=== PATIENT | male | born 1960 | race Caucasian/White ===

== ENCOUNTER 2023-01-01 10:04 | Outpatient (CLI) | payer MEDICARE, SELFPAY ==
--- NOTE | 2023-01-01 11:29 | W.ANESCHARGE ---
Anesthesia Charges Start Date/Time Anesthesia Start Date: 01/01/23 Anesthesia Start Time: 11:11 Stop Date/Time Anesthesia Stop Date: 01/01/23 Anesthesia Stop Time: 11:26
== END 2023-01-01 10:05 | disposition home or self-care (01) ==
LOC: OP CLINIC 10:06
PROVIDERS: PCP Family Medicine; Visit Provider Internal Medicine Gastroenterology
DX: R13.10 Dysphagia, unspecified (principal); K31.89 Other diseases of stomach and duodenum
CPT/HCPCS: 00731; 43239; 88305; J2704

== ENCOUNTER 2023-05-25 16:57 | Emergency (ER) | payer MEDICARE, SELFPAY ==
[2023-05-25] VITALS (11 sets, daily range): BP systolic 99–125; BP diastolic 60–76; PULSE 72–148; RESP 20; TEMP 36.7; O2SAT 94–98; BMI 23.1
--- NOTE | 2023-05-25 17:20 | ED.GENADULT ---
HPI - General Adult General Chief complaint: Weakness Stated complaint: Afib Time Seen by Provider: 05/25/23 17:05 History of Present Illness HPI narrative: This 62-year-old male comes in reporting palpitations and is noted to have an increased heart rate at rest on arrival. His heart rate is around 145 beats per minute. He states that at times he has noticed his heart pounding over the past couple months. He is not report any chest pain, nausea, vomiting, lightheadedness, shortness of breath, or diaphoresis. He has not had increased resting heart rate like this in the past. Related Data Home Medications Medication Instructions Recorded Confirmed atorvastatin 40 mg tablet 40 mg PO QPM 05/25/23 05/25/23 clopidogrel 75 mg tablet 75 mg PO QAM 05/25/23 05/25/23 desipramine 25 mg tablet mg PO 05/25/23 diazepam 5 mg tablet PO 05/25/23 methocarbamol 500 mg tablet PO 05/25/23 pregabalin 150 mg capsule 150 mg PO BID 05/25/23 05/25/23 tizanidine 4 mg tablet 4 mg PO Q8H PRN 05/25/23 05/25/23 zolpidem 10 mg tablet 10 mg PO QPM PRN 05/25/23 05/25/23 Allergies Allergy/AdvReac Type Severity Reaction Status Date / Time oxcarbazepine Allergy Rash Verified 01/01/23 11:41 [From Trileptal] topiramate [From Topamax] Allergy Rash Verified 01/01/23 11:41 amoxicillin [From Augmentin] AdvReac Nausea Verified 01/01/23 11:41 clavulanic acid AdvReac Nausea Verified 01/01/23 11:41 [From Augmentin] sulfamethoxazole AdvReac Diarrhea Verified 01/01/23 11:41 [From Bactrim] trimethoprim [From Bactrim] AdvReac Diarrhea Verified 01/01/23 11:41 Review of Systems Status of ROS: Reports: 10 or more systems reviewed and unremarkable except as noted in History and below Narrative: Constitutional: No fevers, no weight gain or loss. Eyes: No discharge. No vision changes. HENT: No congestion, no sore throat, no ear pain. Cardiovascular: No chest pain Respiratory: No shortness of breath, no wheezes, no cough. Gastrointestinal: No abdominal pain, no vomiting, no diarrhea. Genitourinary: No dysuria, no hematuria. Musculoskeletal: Normal range of motion. Skin: No rashes, no pruritis. Neurological: No dizziness, weakness, sensory change, speech change. Endo/Heme/Allergies: No bruising or bleeding. No polydipsia. Pysch: no suicidality, no anxiety, no insomnia. All other systems reviewed and are negative. [facility] Smoking Status: Current every day smoker What tobacco products do you use: cigarettes Do you use any of these nicotine containing products: None How often do you have a drink containing alcohol: never How often do you have six or more drinks on one occasion: Never AUDIT-C Alcohol total score: 0 Non-prescribed substance use: denies use Exam Narrative: Exam Narrative: Constitutional: Well-developed, well-nourished, no acute distress. HEENT: Normocephalic, atraumatic. Neck: Normal range of motion. Nontender. Supple. Heart: Regular. No murmurs. Tachycardia Intact distal pulses. Lungs: Clear to auscultation. No chest discomfort. No wheezes, rhonchi, or rales. Abdomen: Normal bowel sounds. Nontender. No rebound tenderness. Genitalia: Deferred. Back: No midline tenderness. Normal range of motion. Extremities: Normal range of motion. No injury. Skin: Intact. No rash. Warm. No erythema or pallor. Neurologic: No altered sensation. No weakness. Alert and oriented. Psychiatric: No suicidality. No anxiety or depression. No insomnia. Nursing notes and vitals signs are reviewed. Const: Vital Signs, click to edit/add: Vital Signs - 24 hr 05/25/23 17:06 05/25/23 17:25 05/25/23 17:45 Temperature 98.0 F Pulse Rate Pulse Rate [Left P ulse Oximeter] 148 H Respiratory Rate 20 Blood Pressure Blood Pressure [Ri ght Upper Arm] 99/60 108/76 100/64 Pulse Oximetry 98 Oxygen Delivery Me thod Room Air 05/25/23 17:54 05/25/23 18:00 05/25/23 18:01 Temperature Pulse Rate 80 76 76 Pulse Rate [Left P ulse Oximeter] Respiratory Rate Blood Pressure 115/69 Blood Pressure [Ri ght Upper Arm] Pulse Oximetry 94 94 94 Oxygen Delivery Me thod 05/25/23 18:02 05/25/23 18:15 05/25/23 18:16 Temperature Pulse Rate 75 73 73 Pulse Rate [Left P ulse Oximeter] Respiratory Rate Blood Pressure 116/71 Blood Pressure [Ri ght Upper Arm] Pulse Oximetry 94 96 95 Oxygen Delivery Me thod 05/25/23 18:30 05/25/23 18:32 Temperature Pulse Rate 72 76 Pulse Rate [Left P ulse Oximeter] Respiratory Rate Blood Pressure 125/68 Blood Pressure [Ri ght Upper Arm] Pulse Oximetry 96 97 Oxygen Delivery Me thod Course Vital Signs Vital signs: Initial Vital Signs Temperature 98.0 F 05/25/23 17:06 Temperature Source Temporal Artery Scan 05/25/23 17:06 Pulse Rate 148 H 05/25/23 17:06 Respiratory Rate 20 05/25/23 17:06 Blood Pressure 99/60 05/25/23 17:06 Blood Pressure Mean 73 05/25/23 17:06 Blood Pressure Position Sitting 05/25/23 17:06 Pulse Oximetry 98 05/25/23 17:06 Oxygen Delivery Method Room Air 05/25/23 17:06 Vital Signs Temperature 98.0 F 05/25/23 17:06 Pulse Rate 148 H 05/25/23 17:06 Respiratory Rate 20 05/25/23 17:06 Blood Pressure 99/60 05/25/23 17:06 Pulse Oximetry 98 05/25/23 17:06 Oxygen Delivery Method Room Air 05/25/23 17:06 Temperature 98.0 F 05/25/23 17:06 Pulse Rate 76 05/25/23 18:32 Respiratory Rate 20 05/25/23 17:06 Blood Pressure 125/68 05/25/23 18:32 Pulse Oximetry 97 05/25/23 18:32 Oxygen Delivery Method Room Air 05/25/23 17:06 Medical Decision Making MDM Narrative Medical decision making narrative: This patient arrives with heart rate around 145 beats per minute and it appears to be a supraventricular tachycardia. The patient states that he is not having any symptoms of lightheadedness, shortness of breath, or chest pain. An IV was established and an order was placed for L of normal saline along with 6 mg of adenosine. As the nurse was beginning to arrange for administering medicines to him he spontaneously converted back to normal sinus rhythm. Labs are acquired and these all returned with normal results. I did order a thyroid stimulating hormone test whose results are not yet back. This patient states that he feels normal and wants to return home. He is discharged and instructions were given regarding possibility that symptoms like this could return. Lab Data Labs: Lab Results 05/25/23 05/25/23 Range/Units 17:18 17:19 WBC 4.86 (4.50-11.00) K/uL RBC 5.27 (4.30-5.90) m/uL Hgb 14.6 (13.5-17.5) gm/dL Hct 43.8 (37.0-53.0) % MCV 83 (80-100) fL MCH 28 (26-34) pg MCHC 33 (32-36) gm/dL RDW Coeff of Syd 15.1 (11.5-15.5) % Plt Count 204 (140-440) K/uL Neut % (Auto) 51.6 (42.0-72.0) % Lymph % (Auto) 42.4 (20-44) % Reagan % (Auto) 5.6 (0.0-11.0) % Eos % (Auto) 0.2 (0.0-7.0) % Baso % (Auto) 0.2 (0.0-3.0) % Neut # (Auto) 2.51 (1.7-7.0) K/uL Lymph # (Auto) 2.06 (0.90-2.90) K/uL Reagan # (Auto) 0.30 (0.00-0.90) K/UL Eos # (Auto) 0.01 (0.00-0.50) K/uL Baso # (Auto) 0.01 (0.00-0.30) K/uL Abs Immat Gran (auto) 0.00 (0.00-0.30) K/uL Imm/Tot Granulo (auto) 0.0 % Sodium 138 (135-149) mmol/L Potassium 4.6 (3.6-5.1) mmol/L Chloride 103 (96-114) mmol/L Carbon Dioxide 27 (20-32) mmol/L Anion Gap 8 (7-15) mEq/L BUN 18 (7-30) mg/dL Creatinine 1.1 (0.5-1.5) mg/dL Estimated Creat Clear 78.18 Estimated GFR 76 ml/min Glucose 139 H (60-115) mg/dL Calcium 9.9 (8.4-10.6) mg/dL POC Troponin I 0.01 (0.01-0.04) ng/ml ECG Data Attestation: I personally reviewed and interpreted this ECG as follows: Interpretation: Supraventricular tachycardia. Rate is 145 beats per minute. There are no specific ST or T-wave abnormalities. Repeat EKG after spontaneous conversion shows normal sinus rhythm at a rate of 83 beats per minute. There are no ST or T-wave abnormalities. Discharge Plan Discharge Clinical Impression: Paroxysmal supraventricular tachycardia Patient Disposition: Home, Self-Care Condition: Improved Additional Instructions: Continue current plans. Follow up with MD or return if symptoms are recurrent or worsening. Prescriptions: No Action atorvastatin 40 mg tablet 40 mg PO QPM methocarbamol 500 mg tablet PO desipramine 25 mg tablet PO tizanidine 4 mg tablet 4 mg PO Q8H PRN clopidogrel 75 mg tablet 75 mg PO QAM zolpidem 10 mg tablet 10 mg PO QPM PRN diazepam 5 mg tablet PO pregabalin 150 mg capsule 150 mg PO BID Follow Up/Referrals: Tiffany Mae DO [Primary Care Provider] - Stand Alone Forms: [employer] Info Instructions
--- NOTE | 2023-05-25 17:22 | ED.NURSE ---
Healthcare Applications Analyst was about to insert second IV line when pt HR dropped from 147 bpm to ~85 bpm NSR. MD notified and repeat ekg done. 2nd IV line not inserted at this time.
[2023-05-25 17:32] LABS: Basophils Absolute Auto 0.01 K/uL (0.00-0.30); Basophils Percent Auto 0.2 % (0.0-3.0); Eosinophils Absolute Auto 0.01 K/uL (0.00-0.50); Eosinophils Percent Auto 0.2 % (0.0-7.0); Hematocrit 43.8 % (37.0-53.0); Hemoglobin* 14.6 gm/dL (13.5-17.5); Lymphocytes Absolute Auto 2.06 K/uL (0.90-2.90); Lymphocytes Percent Auto 42.4 % (20-44); Mean Corpuscular HGB Conc 33 gm/dL (32-36); Mean Corpuscular Hemoglobin 28 pg (26-34); Mean Corpuscular Volume 83 fL (80-100); Monocytes Percent Auto 5.6 % (0.0-11.0); Neutrophils Absolute Auto 2.51 K/uL (1.7-7.0); Neutrophils Percent Auto 51.6 % (42.0-72.0); Platelet Count* 204 K/uL (140-440); RDW Coefficient of Variation % 15.1 % (11.5-15.5); Red Blood Count 5.27 m/uL (4.30-5.90); White Blood Count* 4.86 K/uL (4.50-11.00)
[2023-05-25 17:34] LABS: Slide Review Reflex No
[2023-05-25 17:37] LABS: Troponin, Point-of-Care* 0.01 ng/ml (0.01-0.04)
[2023-05-25] MEDS: 0.9 % SODIUM CHLORIDE 1000 ml 1,000 ML IV (17:43)
[2023-05-25 17:46] LABS: Chloride* 103 mmol/L (96-114); Potassium* 4.6 mmol/L (3.6-5.1); Sodium* 138 mmol/L (135-149)
[2023-05-25 17:48] LABS: Creatinine* 1.1 mg/dL (0.5-1.5); Est. Creatinine Clearance* 78.18; Estimated Glomerular Filt Rate 76 ml/min
[2023-05-25 17:49] LABS: Anion Gap 8 mEq/L (7-15); Blood Urea Nitrogen* 18 mg/dL (7-30); Carbon Dioxide* 27 mmol/L (20-32); Glucose* 139 mg/dL (60-115)
[2023-05-25 17:50] LABS: Calcium* 9.9 mg/dL (8.4-10.6)
--- OUTSIDE RECORDS SUMMARY | 2023-05-25 17:50 | XMS_ITS | Continuity of Care Document ---
Author Name Unknown Organization [facility] Address [address] [address] [place] [address] Phone Care Team Providers Care Train Director Name Role Phone Unavailable Unavailable Unavailable Allergies, Adverse Reactions, Alerts Substance Reaction Status Criticality topiramate Rash Active No Information oxcarbazepine Rash Active No Information trimethoprim Active No Information sulfamethoxazole Active No Informat ion Medications Medication Instructions Dosage Effective Dates (start - stop) Status Comments Golytely 236 gram-22.74 gram-6.74 gram-5.86 gram oral solution Use as directed per colonoscopy prep instructions - Active Okay to substitute with Gavilyte, Golytely, Colyte, Trilyte, proc 04/14 Miralax 17 gram/dose oral powder Mix 238 grams Miralax with 64 ounces Gatorade (NO RED) and drink per colonoscopy prep instructions - Active Please dispense with Golytely for a double prep. Procedure 04/14/21 Symproic 0.2 mg tablet take 1 tablet by oral route every day 0.2 MG - Active fentanyl 50 mcg/hr transdermal patch apply 1 patch by transdermal route every 48 hours 50 MCG/H - Active desipramine 25 mg tablet take 1 tablet by oral route 2 times every day 25 MG - Active Lyrica 150 mg capsule take 1 capsule by oral route 2 times every day 150 MG - Active pravastatin 20 mg tablet take 1 tablet by oral route every day 20 MG - Active Prilosec OTC 20 mg tablet,delayed release take 1 capsule by oral route every day as needed 1 capsule - Active Ambien 10 mg tablet take 1 tablet by oral route every day at bedtime 10 MG - Active diphenhydramine 25 mg capsule take 2 capsule by oral route every day as needed 50 MG - Active Plavix 75 mg tablet take 1 tablet (75MG) by oral route every day 75 MG - Active Dilaudid 4 mg tablet take 1 tablet (4MG) by oral route every 4 - 6 hours as needed 4 MG - Active Valium 5 mg tablet take 1 tablet (5MG) by oral route every bedtime as needed 5 MG - Active butalbital-acetamino phen 50 mg-325 mg tablet take 1 - 2 tablet by oral route every 4 hours as needed not to exceed 6 tablets per 24hrs 1.00-2.00 tablet - Active Compazine 25 mg rectal suppository insert 1 suppository (25MG) by rectal route 2 times every day as needed for nausea 25 MG - Active Zofran 4 mg tablet take 2 tablet (8MG) by oral route every 8 hours as needed 8 MG - Active tizanidine 4 mg tablet take 1 Tablet (4MG) by oral route 3 times every day 4 MG - Active Miralax 17 gram/dose oral powder Mix 238 grams Miralax with 64 ounces Gatorade (NO RED) and drink per colonoscopy prep instructions - No Longer Active Please dispense with Golytely for a double prep. Procedure 04/14/21 Golytely 236 gram-22.74 gram-6.74 gram-5.86 gram oral solution Use as directed per colonoscopy prep instructions - No Longer Active Okay to substitute with Gavilyte, Golytely, Colyte, Trilyte Procedures Procedure Date Established Level 4 or 25-39 min 2019 Virtual Visit E&m Estab Mod-hi 25-39 Min Colonoscopy Flex; W/bx /mx Level Iv-surg Path Gross/micro 20 Colonoscopy Flex; W/remov Les- 14 Colonoscopy Flex; W/bx 1/mx Level Iv-surg Path Gross/micro 14 Colonoscopy Flex; W/bx 1/mx Ugi Endo; W/bx 1/mx Level Iv-surg Path Gross/micro 10 Offic/outpt E&m Estab Mod-hi 2 10 Routine Serum Collection [id number] Offic Cons New/estab Mod-hi 60 09 [id number] Advance Directives Directive Yes / No Effective Date File Name No Information Encounters Encounter Description Practice Location Reason(s) For Visit Diagnoses Date Provider Providers Copied on Encounter [facility], [address] [address], [place], [id number], [place] tel:[phone] [facility] No Information No Information [facility], [address] [address], [place], [id number], [place] tel:[phone] [facility] No Information No Information Established Level 4 or 25-39 min [facility], [address] [address], [place], [id number], [place] tel:[phone] [facility] Comment (chief complaint) NauseaWeight lossDrug-drew akilah constipation May- 0 Gaby Silva. [address] [place] [address], [id number], [place]. tel:[phone] Referring Provider: Emilie Kumari MD, [address] [place] [address], [address]. tel:[phone] [facility], [address] [address], [place], [id number], [place] tel:[phone] [facility] No Information 0 Rani Veliz. [address] [place] [address], [id number], [place]. tel:[phone] Virtual Visit E&m Estab Mod-hi 25-39 Min [facility], [address] [address], [place], [id number], [place] tel:[phone] [facility] GI Symptoms or Concerns (chief complaint) Therapeutic opioid-induce d constipation (OIC)Adverse effect of other opioids, initial encounterHist ory of ulcerative colitis 0 Rani Veliz. [address] [facility], [place], [place], [id number], [place]. tel:[phone] [facility], [address] [address], [facility] [place], [id number], [place] tel:[phone] [facility] Quiescent ulcerative colitis without complicationC olorectal polypsDiverti culosis of colon without diverticuliti sHemorrhoids, internalDiarr hea, unspecifiedPe rsonal history of colonic polypsBenign neoplasm of cecumBenign neoplasm of ascending colonDiarrhea , unspecifiedBe nign neoplasm of ascending colonBenign neoplasm of cecumPersonal history of colonic polyps 0 No Information Referring Provider: Emilie Kumari MD, [address] [place] [address], [id number]. tel:[phone] [facility], [address] [address], [facility] [place], [id number], [place] tel:[phone] [facility] No Information 0 Eduardo Price. [address] [facility] [address], [place], [id number], [place]. tel:[phone] [facility], [address] [address], [facility] [place], [id number], [place] tel:[phone] [facility] Diverticulosi s Of ColonBenign Neoplasm ColonHemorrho ids NosConstipati on UnspecifiedBe nign Neoplasm ColonConstipa tion UnspecifiedHe morrhoids NosDiverticul osis Of Colon 4 Tejal Caceres. [address] [facility], [place], [place], [id number], [place]. tel:[phone] Referring Provider: Herve Lomeli MD, [address], [place], [address]. tel:[phone] [facility], [address] [address], [place], [id number], [place] tel:[phone] [facility] Diverticulosi s Of ColonGastriti s W/o BleedDuodenit isUlcerative Colitis NosDuodenitis Gastritis W/o BleedDivertic ulosis Of Colon 0 Tejal Caceres. [address], [id number], [place]. tel:[phone] Referring Provider: Adán Blackman, [address], [place], [address]. tel:[phone] Offic/outpt E&m Estab Mod-hi 2 [facility], [address] [address], [place], [place], [id number], tel:[phone] [facility] Ulcerative Colitis (chief complaint) Ulcerative Colitis NosUlcerative Colitis Nos 0 Eduardo Price. [address], [id number], [place]. tel:[phone] Referring Provider: Adán Blackman, [address], [place], [address]. tel:[phone] Offic Cons New/estab Mod-hi 60 [facility], [address] [address], [place], [place], [id number], [place] tel:[phone] [facility] Ulcerative Colitis (chief complaint) Ulcerative Colitis Nos 9 Tejal Caceres. [address], [id number], [place]. tel:[phone] Referring Provider: [place], [address] [place], [address]. tel:[phone] Family History Family Member Type Diagnosis Age At Onset First degree family history Problem (finding) No history of Ulcerative Colitis First degree family history Problem (finding) No history of Cancer, colon First degree family history Problem (finding) No Family history of No history of Colon Polyps First degree family history Problem (finding) No history of Crohn's Immunizations Vaccine Date Status Comments Influenza administered Note: [facility] bi-d irectional interface ; Source: Other Registry zoster vaccine recombinant administered N ote: [facility] bi-directional interface ; Source: Other Registry zoster vaccine recombinant administered N ote: [facility] bi-directional interface ; Source: Other Registry zoster vaccine recombinant administered N ote: [facility] bi-directional interface ; Source: Other Registry Fluzone Quad 6mo or older administered Note: [facility] bi-direct ional interface ; Source: Other Registry Fluzone Quad 6mo or older administered Note: [facility] bi-direct ional interface ; Source: Other Registry Fluzone Quad 6mo or older administered Note: [facility] bi-direct ional interface ; Source: Other Registry influenza, high dose seasona l, preservative-free administered Note: [facility] bi-direct ional interface ; Source: Other Registry Pneumovax 23 administered Note: [facility] bi-d irectional interface ; Source: Other Registry Fluzone Quad 6mo or older administered Note: [facility] bi-direct ional interface ; Source: Other Registry Fluzone Quad 6mo or older administered Note: [facility] bi-direct ional interface ; Source: Other Registry tetanus toxoid, reduced diphtheria toxoid, and acellular pertussis vaccine, adsorbed administered Note: [facility] bi-direct ional interface ; Source: Other Registry Influenza, seasonal, injectable administe red Note: [facility] bi- directional interface ; Source: Other Registry Payers Payer name Insurance type Covered constitution party ID Authoriza tion(s) No Information Social History Type Description Quantity Date Captured Comments Alcohol Use Details Unknown Caffeine Use Details Unknown Tobacco Use Status No Information Smoking Status No Information Sex Male Chief Complaint And Reason For Visit No Information Reason For Referral Reason For Referral No Information Plan Of Treatment Date Type Action Status Referral Ordered: follow-up visit with [facility] 1 Month Appointment date/timeframe: 1 Month ordered History Of Present Illness Encounter Date Complaint History Of Prese nt Illness Comment Inocencio Andrew is a 59-year-old male who [facility] management of chronic constipation and nausea. He carries a remote history of ulcerative colitis, chronic opioid use for neuropathy, chronic migraine headaches, vertigo resulting in nausea. He also reports a 17 pound weight loss since August of last year. He has more recently been seen in our clinic for incidence of constipation with overflow diarrhea. He has been refractory to Linzess, MiraLax, Amitiza was not covered. He was recently prescribed Symproic, which caused him to have spastic reactions and restless arm failing. Currently, he is on Movantik and Dulcolax tablets. He takes 3 to 6 tablets on a daily basis. He may go 3 to 4 days without a bowel movement with a sense of pressure in his upper abdomen. He will then take Movantik, which will stimulate a bowel movement several hours later. He did undergo a colonoscopy in December 2019, which did not show any active inflammation. Random col GI Symptoms or Concerns Mr. Fanny elena is a 59-year-old gentleman with a remote history of ulcerative colitis, chronic opioid use for neuropathy who had a televisit with me today for concerns regarding constipation and overflow diarrhea.Mr. Andrew reports a remote history of ulcerative colitis diagnosed in the . He was treated with 5-ASA agents for years, but for the last several years at least over a decade, he has not been on any therapy for ulcerative colitis or had any symptoms of ulcerative colitis. His previous colonoscopies in 2009, 2013, and most recently in December 2019 have been negative for ulcerative colitis without any evidence of inflammation.Mr. 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 As a result. 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 He reports that for the last 6 to 7 month Functional Status Date Functional Assessmen t No Information Instructions Date Instruction Additional Infor alis i suspect you have g astroparesis due to constipation and opioids. I will mail you a gastroparesis diet. I would remain on phase one for 72 hours then move to phase 2 for 72 hours then phase three. schedule compazine two times daily for the next two weeks, if doing better then okay to resume as needed. update in a couple of weeks via portal. ensure two cans daily, small frequent meals soft foods. constipation management with movantik daily and senna 2 to 3 tablets at bedtime. If this is not helping to regulate your bowels then increase to senna 3 tablets two times daily and movantik in the morning. If with diarrhea but still feeling constipated then abdominal xray to assess for fecal burdenfuture laxative would be lactulose. intense pain can also contribute to constipation. For ongoing weight loss we should schedule a CT of the abdomen and pelvis. Related to Nausea gastroparesis Related to Nause a 1. Continue Movantik .2. Start Amitiza 24 mcg twice daily to help further with opioid-induced constipation.Follow up in [facility] in 1 month for continued management, if not finding adequate relief of symptoms despite the combination of Movantik and Amitiza. Related to Therapeutic opioid-induced constipation (OIC) Colon Cancer Prevention Related to Colorectal polyps Colon Polyps Related to Color ectal polyps Hemorrhoids Related to Color ectal polyps High Fiber Diet Related to Color ectal polyps Diverticulosis/Diverticulitis Re lated to Diverticulosis of colon without diverticulitis Assessments Type Assessment Date No Information Patient Care Teams Name Effective Dates (start - stop) Status Members No Information
--- OUTSIDE RECORDS SUMMARY | 2023-05-25 17:50 | XMS_ITS | Continuity of Care Document ---
Author Name Unknown Organization [facility] Address [address] [address] [place] [address] Phone Care Team Providers Care Cargo Surveyor Name Role Phone Unavailable Unavailable Unavailable Allergies, [...] Diagnoses Date Provider Providers Copied on Encounter [facility], [address] [address], [place], [id number], [place] tel:[phone] [facility] No Information No Information [facility], [address] [address], [place], [id number], [place] tel:[phone] [facility] No Information No Information Established Level 4 or 25-39 min [facility], [address] [address], [place], [id number], [place] tel:[phone] [facility] Comment (chief complaint) NauseaWeight lossDrug-drew akilah constipation May- 0 Gaby Silva. [address] [place] [address], [id number], [place]. tel:[phone] Referring Provider: Emilie Kumari MD, [address] [place] [address], [id number]. tel:[phone] [facility], [address] [address], [place], [id number], [place] tel:[phone] [facility] No Information 0 Rani Veliz. [address] [place] [address], [id number], [place]. tel:[phone] Virtual Visit E&m Estab Mod-hi 25-39 Min [facility], [address] [address], [place], [id number], [place] tel:[phone] [facility] GI Symptoms or Concerns (chief complaint) Therapeutic opioid-induce d constipation (OIC)Adverse effect of other opioids, initial encounterHist ory of ulcerative colitis 0 Rani Veliz. [address] [facility], [facility] [address], [place], [place], [id number], [place]. tel:[phone] [facility], [address] [address], [facility] [place], [id number], [place] tel:[phone] [facility] Quiescent ulcerative colitis without complicationC olorectal polypsDiverti culosis of colon without diverticuliti sHemorrhoids, internalDiarr hea, unspecifiedPe rsonal history of colonic polypsBenign neoplasm of cecumBenign neoplasm of ascending colonDiarrhea , unspecifiedBe nign neoplasm of ascending colonBenign neoplasm of cecumPersonal history of colonic polyps 0 No Information Referring Provider: Emilie Kumari MD, [address] [place] [address], [id number]. tel:[phone] [facility] [place] [facility], [address] [address], [facility] [place], [id number], [place] tel:[phone] [facility] No Information 0 Eduardo Price. [address] [facility], [facility] [address], [place], [id number], [place]. tel:[phone] [facility] [place] [facility], [address] [address], [facility] [place], [id number], [place] tel:[phone] [facility] Diverticulosi s Of ColonBenign Neoplasm ColonHemorrho ids NosConstipati on UnspecifiedBe nign Neoplasm ColonConstipa tion UnspecifiedHe morrhoids NosDiverticul osis Of Colon 4 Tejal Caceres. [address] [facility], [facility] [address], [place], [place], [id number], [place]. tel:[phone] Referring Provider: Herve Lomeli MD, [address], [place], [address]. tel:[phone] [facility] [place], [address] [address], [place], [id number], [place] tel:[phone] [facility] Diverticulosi s Of ColonGastriti s W/o BleedDuodenit isUlcerative Colitis NosDuodenitis Gastritis W/o BleedDivertic ulosis Of Colon 0 Tejal Caceres. [address], [id number], [place]. tel:[phone] Referring Provider: Adán Blackman, [address], [place], [address]. tel:[phone] Offic/outpt E&m Estab Mod-hi 2 [facility] [place] [facility], [address] [address], [place], [place], [id number], tel:[phone] [facility] Ulcerative Colitis (chief complaint) Ulcerative Colitis NosUlcerative Colitis Nos 0 Eduardo Price. [address], [id number], [place]. tel:[phone] Referring Provider: Adán Blackman, [address], [place], [address]. tel:[phone] Offic Cons New/estab Mod-hi 60 [facility] [place] [facility], [address] [address], [place], [place], [id number], [place] tel:[phone] [facility] Ulcerative Colitis (chief complaint) Ulcerative Colitis Nos 9 Tejal Caceres. [address], [id number], [place]. tel:[phone] Referring Provider: [place], [address] [place], [address]. tel:[phone] Family History Family Member Type Diagnosis Age [...] Registry Payers Payer name Insurance type Covered democrat ID Authoriza tion(s) No Information Social History [...] who is being seen today in the [facility] for ongoing management of chronic [...]
[2023-05-25 19:02] LABS: Thyroid Stimulating Hormone* < 0.015 uIU/mL (0.270-4.20)
== END 2023-05-25 19:01 | disposition home or self-care (01) ==
PROVIDERS: Emergency Provider Emergency Medicine Emergency Medical Services; PCP Family Medicine
DX: I48.0 Paroxysmal atrial fibrillation (principal)
CPT/HCPCS: 36415; 80048; 84443; 84484; 85025; 93005; 96361; 96374; 99284; J7030

== ENCOUNTER 2023-06-05 11:34 | Emergency (ER) | payer MEDICARE, SELFPAY ==
[2023-06-05 11:44] VITALS: BP 120/69; PULSE 78; RESP 16; TEMP 36.2; O2SAT 95; BMI 23.1
--- NOTE | 2023-06-05 12:46 | ED.NURSE ---
18f tobar was inserted shortly after patient arrived. 1650cc of clear, suahs urine was immediately released. Patient had immediate release. Patient is very constipated. 150cc of tap water inserted before the water started to come out. Patient wanted to attempt to go before giving more tap water in.
--- NOTE | 2023-06-05 13:11 | ED_ITS ---
HPI - General Adult General Date Seen: 06/05/23 Chief complaint: Urogenital Problems, Male Stated complaint: Needs catheter Time Seen by Provider: 06/05/23 11:35 Source: patient and family Mode of arrival: ambulatory Limitations: no limitations History of Present Illness HPI narrative: Patient is a 62-year-old male who is here primarily for urinary retention. He developed problems in the past week with acute urinary retention, was seen at [facility], had a catheter placed but then removed and was told that Urology would call him to schedule an appointment in the next few days. He has not heard from them, he was told to come back in if he was not able to urinate which he has not been able to for the past day or so. He recently developed an episode of atrial fibrillation and so he scheduled to start Eliquis but has not yet. He also has been having back pain for the past several weeks, he says that this started when he bent over to pick something up and then stood. He was initially seen at the [facility] and was apparently referred to [facility] ER because of concerns about cauda equina. He was not felt to have an exam consistent with cauda quinine at the ER and was discharged with prednisone and methocarbamol. He says he felt good on these medications but as he discontinued those medications his back pain worsened. He was subsequently seen in the ER at [facility] I believe for his back pain. He did have a CT scan of his abdomen and pelvis as well as of his lumbar spine. He cannot have an MRI due to his pain stimulator. He has a history of traumatic brain injury and has chronic pain, he is on fentanyl for this and has chronic problems with constipation. Has not had a bowel movement for the past week despite use of Dulcolax and MiraLax. He does note that he had a rectal exam on Sunday, he had normal tone, is not sure whether he had impacted stool. He feels he has normal perineal sensation. Related Data Home Medications Medication Instructions Recorded Confirmed atorvastatin 40 mg tablet 40 mg PO QPM 05/25/23 06/05/23 desipramine 25 mg tablet 25 mg PO 05/25/23 diazepam 5 mg tablet 2.5 mg PO 05/25/23 methocarbamol 500 mg tablet 500 mg PO 05/25/23 pregabalin 150 mg capsule 150 mg PO BID 05/25/23 06/05/23 tizanidine 4 mg tablet 4 mg PO Q8H PRN 05/25/23 06/05/23 zolpidem 10 mg tablet 10 mg PO QPM PRN 05/25/23 06/05/23 apixaban 5 mg tablet (Eliquis) 5 mg PO BID 06/05/23 06/05/23 fentanyl 50 mcg/hr transdermal 1 patch topical DAILY 06/05/23 06/05/23 patch Allergies Allergy/AdvReac Type Severity Reaction Status Date / Time oxcarbazepine Allergy Rash Verified 06/05/23 11:41 [From Trileptal] topiramate [From Topamax] Allergy Rash Verified 06/05/23 11:41 amoxicillin [From Augmentin] AdvReac Nausea Verified 06/05/23 11:41 clavulanic acid AdvReac Nausea Verified 06/05/23 11:41 [From Augmentin] sulfamethoxazole AdvReac Diarrhea Verified 06/05/23 11:41 [From Bactrim] trimethoprim [From Bactrim] AdvReac Diarrhea Verified 06/05/23 11:41 Review of Systems Status of ROS: Reports: 10 or more systems reviewed and unremarkable except as noted in History and below [facility] Social History Smoking Status: Current every day smoker What tobacco products do you use: cigarettes Smoking packs per day: 0.5 Smoking cigarettes per day: 10.0 Do you use any of these nicotine containing products: None Second hand tobacco smoke exposure: No How often do you have a drink containing alcohol: never How often do you have six or more drinks on one occasion: Never AUDIT-C Alcohol total score: 0 Non-prescribed substance use: denies use service: No Exam Narrative: Exam Narrative: Vital signs as noted above. In general, an alert, nontoxic male. Head: Normocephalic, atraumatic. Eyes: Pupils are equal reactive. Extraocular movements are full. Conjunctivae are normal. ENT: Mucous membranes are moist. Throat is normal. Neck: Supple without lymphadenopathy. Abdomen: Soft and nontender. No organomegaly. Rectal: Normal tone and sensation. Soft large volume stool in the rectum. Extremities: Well perfused. No edema. No calf tenderness. Pulses intact. Neurologic: Patient is alert and oriented to person and place. Speech is fluent. Face is symmetric. Moves all extremities equally. Affect: Normal. Skin: Warm and dry. Well perfused. Const: Vital Signs, click to edit/add: Vital Signs - 24 hr 06/05/23 11:44 06/05/23 13:39 Temperature 97.1 F L 97.3 F L Pulse Rate [Pulse Oximeter] 78 78 Respiratory Rate 16 16 Blood Pressure [Le ft Upper Arm] 120/69 101/59 L Pulse Oximetry 95 97 Oxygen Delivery Me thod Room Air Room Air Course Course ED Course: I reviewed his imaging from [facility]. CT of the abdomen showed a large bladder no clear obstructive process but he does have a large prostate. CT of the lumbar spine he had some spondylolisthesis, some posterior disc bulges in the upper lumbar spine, nothing noted in the lower lumbar spine or sacral region. No severe foraminal narrowing at any level. Does not appear that his urinary retention is related to cauda equina. We did give them an enema here trying to stimulate a bowel movement without much success, would encourage him to continue using his medications at home, I suspect that MiraLax and Dulcolax T other will work with time. He is supposed to follow-up with Urology at [facility]; he had about 2000 mL of urine in his bladder today so we placed a catheter and drain that and will just leave the catheter in place until he sees Urology. Vital Signs Vital signs: Initial Vital Signs Temperature 97.1 F L 06/05/23 11:44 Temperature Source Temporal Artery Scan 06/05/23 11:44 Pulse Rate 78 06/05/23 11:44 Pulse Rhythm Regular 06/05/23 11:44 Pulse Strength 3+ Normal 06/05/23 11:44 Respiratory Rate 16 06/05/23 11:44 Blood Pressure 120/69 06/05/23 11:44 Blood Pressure Mean 86 06/05/23 11:44 Blood Pressure Position Supine 06/05/23 11:44 Pulse Oximetry 95 06/05/23 11:44 Oxygen Delivery Method Room Air 06/05/23 11:44 Vital Signs Temperature 97.1 F L 06/05/23 11:44 Pulse Rate 78 06/05/23 11:44 Respiratory Rate 16 06/05/23 11:44 Blood Pressure 120/69 06/05/23 11:44 Pulse Oximetry 95 06/05/23 11:44 Oxygen Delivery Method Room Air 06/05/23 11:44 Temperature 97.3 F L 06/05/23 13:39 Pulse Rate 78 06/05/23 13:39 Respiratory Rate 16 06/05/23 13:39 Blood Pressure 101/59 L 06/05/23 13:39 Pulse Oximetry 97 06/05/23 13:39 Oxygen Delivery Method Room Air 06/05/23 13:39 Discharge Plan Discharge Clinical Impression: Constipation due to opioid therapy, Acute urinary retention Patient Disposition: Home, Self-Care Instructions: [facility] Catheter Placement and Care (ED), How to Change a Catheter Drainage Bag (DC) Additional Instructions: Urology etcetera follow-up at [facility] as you have planned. Catheter in place until then. I would continue on the MiraLax, 1 capful daily, can use other medications as you have been. If you develop significant abdominal pain, vomiting, or other worsening return for re-evaluation. Prescriptions: No Action atorvastatin 40 mg tablet 40 mg PO QPM methocarbamol 500 mg tablet 500 mg PO desipramine 25 mg tablet 25 mg PO tizanidine 4 mg tablet 4 mg PO Q8H PRN zolpidem 10 mg tablet 10 mg PO QPM PRN diazepam 5 mg tablet 2.5 mg PO pregabalin 150 mg capsule 150 mg PO BID Eliquis 5 mg tablet 5 mg PO BID fentanyl 50 mcg/hr patch 72 hour 1 patch topical DAILY Follow Up/Referrals: Tiffany Mae DO [Primary Care Provider] - Stand Alone Forms: [facility] Info Instructions
[2023-06-05 13:39] VITALS: BP 101/59; PULSE 78; RESP 16; TEMP 36.3; O2SAT 97
--- NOTE | 2023-06-05 13:42 | PC.NURSE ---
Patient did not have a BM after enema. notified. Okay to discharge without a BM. Would recommend aggressive bowel care at home from the top. Bill, QUANG, cora buchanan. Educated to stick with a clear liquid diet until he passes stool. Then gradually advance diet. Leg bag, night bag, and how to care for your catheter education was reviewed and understood by patient and patient's . Vital signs within normal limits. Has follow up with urology on Sunday at [facility] in [place].
== END 2023-06-05 13:46 | disposition home or self-care (01) ==
PROVIDERS: Emergency Provider Emergency Medicine; PCP Family Medicine
DX: K59.03 Drug induced constipation (principal); T40.2X5A Adverse effect of other opioids, initial encounter; R33.9 Retention of urine, unspecified
CPT/HCPCS: 51702; 51798; 99283; 99284

== ENCOUNTER 2024-08-13 10:57 | Emergency (ER) | payer MEDICARE, SELFPAY ==
[2024-08-13 11:09] VITALS: BP 101/67; PULSE 69; RESP 18; TEMP 35.9; O2SAT 99; BMI 21.1
--- NOTE | 2024-08-13 11:48 | ED.SKABFB ---
HPI - Skin/Abscess/Foreign Bdy General Chief complaint: Skin/Abscess/Foreign Body Stated complaint: Rash, swelling R side face Time Seen by Provider: 08/13/24 11:20 History of Present Illness HPI narrative: This 63-year-old male comes in reporting a rash that started to develop last night and has progressed into today. He also woke this morning with some swelling in the right upper lip. He states that he increase the dose of memantine from 5 mg to 10 mg recently. He started this medicine about 3 weeks ago. He also finished an antibiotic about 3 days ago after a dental procedure. 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 He does not report any fever or mucous membrane involvement. Related Data Home Medications ?Medication ?Instructions ?Recorded ?Confirmed atorvastatin 40 mg tablet 40 mg PO QPM 05/25/23 06/05/23 desipramine 25 mg tablet 25 mg PO 05/25/23 diazepam 5 mg tablet 2.5 mg PO 05/25/23 methocarbamol 500 mg tablet 500 mg PO 05/25/23 pregabalin 150 mg capsule 150 mg PO BID 05/25/23 06/05/23 tizanidine 4 mg tablet 4 mg PO Q8H PRN 05/25/23 06/05/23 zolpidem 10 mg tablet 10 mg PO QPM PRN 05/25/23 06/05/23 apixaban 5 mg tablet (Eliquis) 5 mg PO BID 06/05/23 06/05/23 fentanyl 50 mcg/hr transdermal 1 patch topical DAILY 06/05/23 06/05/23 patch Previous Rx's ?Medication ?Instructions ?Recorded methylprednisolone 4 mg tablets in See Rx Instructions PO .COMPLEX 08/13/24 a dose pack (Medrol (Lew)) #21 ea Allergies Allergy/AdvReac Type Severity Reaction Status Date / Time oxcarbazepine (From Allergy Rash Verified 06/05/23 11:41 Trileptal) topiramate (From Topamax) Allergy Rash Verified 06/05/23 11:41 amoxicillin (From Augmentin) AdvReac Nausea Verified 06/05/23 11:41 clavulanic acid (From AdvReac Nausea Verified 06/05/23 11:41 Augmentin) sulfamethoxazole (From AdvReac Diarrhea Verified 06/05/23 11:41 Bactrim) trimethoprim (From Bactrim) AdvReac Diarrhea Verified 06/05/23 11:41 Review of Systems Status of ROS: Reports: 10 or more systems reviewed and unremarkable except as noted in History and below Narrative: Constitutional: No fevers, no weight gain or loss. Eyes: No discharge. No vision changes. HENT: No congestion, no sore throat, no ear pain. Cardiovascular: No chest pain, no palpitations. Respiratory: No shortness of breath, no wheezes, no cough. Gastrointestinal: No abdominal pain, no vomiting, no diarrhea. Genitourinary: No dysuria, no hematuria. Musculoskeletal: Normal range of motion. Skin: Pruritic rash that started on his right elbow and now has spread to a few other areas. Neurological: No dizziness, weakness, sensory change, speech change. Endo/Heme/Allergies: No bruising or bleeding. No polydipsia. Pysch: no suicidality, no anxiety, no insomnia. All other systems reviewed and are negative. [facility] Social History Smoking Status: Current every day smoker What tobacco products do you use: cigarettes Smoking packs per day: 0.5 Smoking cigarettes per day: 10.0 Do you use any of these nicotine containing products: None Second hand tobacco smoke exposure: No How often do you have a drink containing alcohol: never How often do you have six or more drinks on one occasion: Never AUDIT-C Alcohol total score: 0 Non-prescribed substance use: denies use service: No Exam Narrative: Exam Narrative: Constitutional: Well-developed, well-nourished, no acute distress. HEENT: The right side of his upper lip has angioedema. No changes in his mucus membranes. Oropharynx appears normal. Neck: Normal range of motion. Nontender. Supple. Heart: Regular. No murmurs. Normal rate. Intact distal pulses. Lungs: Clear to auscultation. No chest discomfort. No wheezes, rhonchi, or rales. Abdomen: Normal bowel sounds. Nontender. No rebound tenderness. Genitalia: Deferred. Back: No midline tenderness. Normal range of motion. Extremities: Normal range of motion. No injury. Skin: Intact.Warm. Erythematous rash on his right elbow initially and now on various areas of his extremities bilaterally. Neurologic: No altered sensation. No weakness. Alert and oriented. Psychiatric: No suicidality. No anxiety or depression. No insomnia. Nursing notes and vitals signs are reviewed. Const: Vital Signs, click to edit/add: Vital Signs - 24 hr 08/13/24 11:09 Temperature 96.7 F L Pulse Rate [Left] 69 Respiratory Rate 18 Blood Pressure [Le ft Upper Arm] 101/67 Pulse Oximetry 99 Oxygen Delivery Me thod Room Air Course Vital Signs Vital signs: Initial Vital Signs Temperature 96.7 F L 08/13/24 11:09 Temperature Source Temporal Artery Scan 08/13/24 11:09 Pulse Rate 69 08/13/24 11:09 Respiratory Rate 18 08/13/24 11:09 Blood Pressure 101/67 08/13/24 11:09 Blood Pressure Mean 78 08/13/24 11:09 Blood Pressure Position Sitting 08/13/24 11:09 Pulse Oximetry 99 08/13/24 11:09 Oxygen Delivery Method Room Air 08/13/24 11:09 Vital Signs Temperature 96.7 F L 08/13/24 11:09 Pulse Rate 69 08/13/24 11:09 Respiratory Rate 18 08/13/24 11:09 Blood Pressure 101/67 08/13/24 11:09 Pulse Oximetry 99 08/13/24 11:09 Oxygen Delivery Method Room Air 08/13/24 11:09 Temperature 96.7 F L 08/13/24 11:09 Pulse Rate 69 08/13/24 11:09 Respiratory Rate 18 08/13/24 11:09 Blood Pressure 101/67 08/13/24 11:09 Pulse Oximetry 99 08/13/24 11:09 Oxygen Delivery Method Room Air 08/13/24 11:09 MDM - Skin/Abscess/Foreign Bdy MDM Narrative Medical decision making narrative: 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 He did not have any fever or flu-like symptoms prior to his symptoms which began yesterday. He is not exhibiting any involvement of mucous membranes. His symptoms appear to be typical delayed hypersensitivity reaction with erythematous pruritic rash. He does also have some angioedema in the right aspect of his upper lip only. Vital signs are reassuring. He is not exhibiting any signs of anaphylaxis or Hutton-Anders syndrome. I did recommend that he discontinue the memantine. The patient has taken Benadryl but wonders if previous usage of this drug may have caused some dysfunction of his bladder. I recommended using Reshma, Claritin, or Zyrtec. The patient did receive an oral dose of dexamethasone and I did provide a prescription for Medrol Dosepak. Discharge Plan Discharge Clinical Impression: Allergic reaction to drug Patient Disposition: Home, Self-Care Condition: Stable Additional Instructions: Take medication as prescribed. It is also recommended to use antihistamine such as Reshma, Claritin, or Zyrtec. Follow up with MD return if worsening symptoms occur. Prescriptions: New methylprednisolone [Medrol (Lew)] 4 mg tablets,dose pack See Rx Instructions .ROUTE .COMPLEX Qty: 21 0RF Rx Instructions: orally per package directions No Action atorvastatin 40 mg tablet 40 mg PO QPM methocarbamol 500 mg tablet 500 mg PO desipramine 25 mg tablet 25 mg PO tizanidine 4 mg tablet 4 mg PO Q8H PRN zolpidem 10 mg tablet 10 mg PO QPM PRN diazepam 5 mg tablet 2.5 mg PO pregabalin 150 mg capsule 150 mg PO BID Eliquis 5 mg tablet 5 mg PO BID fentanyl 50 mcg/hr patch 72 hour 1 patch topical DAILY Follow Up/Referrals: Tiffany Mae DO [Primary Care Provider] - Stand Alone Forms: [facility] Info Instructions
--- OUTSIDE RECORDS SUMMARY | 2024-08-13 11:58 | XMS_ITS | Encounter Summary ---
Author Organization [facility] Address [address] [place] [id number] Care Team Providers Care Ritual Circumciser Name Role Phone Elsewhere, Pcp Primary Care Provider Unavailabl e Reason for Visit * Outpatient (Routine) - Closed Specialty Diagnoses / Procedures Referred By Contflory t Referred To Contact Pain Medicine Merrill Norton M.D. [address] [place] [phone] Phone: tel: fax: [facility] Referral ID Status Reason Start Date Expiration Date Visits Re quested Visits Authorized [id number] Closed 06/19/2024 12/19/2025 1 1 Encounter Details Date Type Department Care Team (Late st Contact Info) Description 07/14/2024 2:00 PM CDT Nurse Only Division of Pain Medicine in [place], [place] [address] [place] [phone] Merrill Norton M.D. [address] [place] [phone] Sonya Bravo RCody Social History Tobacco Use Types Packs/Day Years Used Date Smoking Tobacco: Every Day Cigarettes 0.5 46.9 Started: 09/17/1977 Smokeless Tobacco: Never Alcohol Use Standard Drinks/Week Comments No 0 (1 standard drink = 0.6 oz pur e alcohol) Overall Financial Resource Strain (CARDIA) Answe r Date Recorded How hard is it for you to pa y for the very basics like food, housing, medical care, and heating? Not very hard 06/08/2023 PHQ-2 Answer Date Recorded PHQ-2 Score 4 02/22/2019 Exercise Vital Sign Answer Date Recorde d On average, how many days pe r week do you engage in moderate to strenuous exercise (like a brisk walk)? 7 days 06/08/2023 On average, how many minutes do you engage in exercise at this level? 10 min 06/08/2023 Hunger Vital Sign Answer Date Recorded Within the past 12 months, y ou worried that your food would run out before you got the money to buy more. Never true 06/08/20 23 Within the past 12 months, t he food you bought just didn't last and you didn't have money to get more. Never true 06/08/2023 PRAPARE - Transportation Answer Date Re corded In the past 12 months, has l ack of transportation kept you from medical appointments or from getting medications? No 05/19 In the past 12 months, has l ack of transportation kept you from meetings, work, or from getting things needed for daily living? No 06/08/2023 Nutrition Answer Date Recorded On average, how many serving s of fruits and vegetables do you eat per day (serving size is equal to 1 cup or approximately the size of a tennis ball)? 0-2 06/08/2023 Dental Answer Date Recorded Dental: Regular Dentist Yes 06/08/20 Employment Answer Date Recorded Employment status Permanently disabled 3 Housing Stability Answer Date Recorded What is your living situation today? 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 - 07/14/2024 2:00 PM CDT Seen Mr. Andrew off the floor following his Medtronic spinal cord stimulator explant. He was provided with discharge education, ice packs, and gauze pack. documented in this encounter Plan of Treatment Not on file documented as of this encounter Visit Diagnoses Not on filedocumented in this encounter Additional Health Concerns Assessment Noted Time PHQ-9 Depression Total Score: 19 12/17/ 019 9:11 AM CDT documented as of this encounter Care Teams Ritual Circumciser Relationship Specialty Start Date End Date Elsewhere, Pcp PCP - General Internal Medicine 06/03/23 documented as of this encounter
--- OUTSIDE RECORDS SUMMARY | 2024-08-13 11:58 | XMS_ITS | Referral Summary ---
Author Organization [facility] Address [address] [place] [address] Care Team Providers Care Plate Worker Helper Name Role Phone Elsewhere, Pcp Primary Care Provider Unavailabl e Source Comments Patient records contain information from all sites at [facility]. For routine questions regarding patient records, call [phone] during business hours, M-F 8:00 AM - 5:00 PM Central Time. Record requests for emergency care only can be directed to [phone] at any time.[facility] Encounters Date Type Department Care Team Description 07/14/2024 9:53 AM CDT Anesthesia Event Outpatient Procedure Center in [place], [place] [address] [place] [address] Fawad Bassett APRN, PATRICIA, NYKandis 07/14/2024 2:00 PM CDT Nurse Only Division of Pain Medicine in [place], [place] [address] [place] [address] Merrill Norton M.D. Bentzin, Jenna A, RAnthonyN. 07/14/2024 9:36 AM CDT - 07/14/2024 11:25 AM CDT Surgery Outpatient Procedure Center in [place], [place] [address] [place] [address] Merrill Norton M.D. REMOVAL MEDTRONIC DORSAL COLUMN STIMULATOR. 07/14/2024 8:18 AM CDT - 07/14/2024 12:03 PM CDT Hospital Encounter Outpatient Procedure Center in [place], [place] [address] [place] [address] Merrill Norton M.D. Discharge Disposition: Home or Self Care 06/19/2024 Clinical Communication Division of Pain Medicine in [place], [place] [address] [place] [address] Sonya Bravo R.N. 05/31/2024 Refill Department of Urology in [place], [place] [address] [place] [address] Nicolasa Brower P.A.-C., M.S. Med Refill 05/28/2024 4:00 PM CDT Procedure visit Division of Pain Medicine in [place], [place] [address] [place] [address] Matt Franklin M.D. Hollister, Jennifer M, R.N. Neuropathy 05/28/2024 3:15 PM CDT Office Visit Division of Pain Medicine in [place], [place] [address] [place] [address] Domi Leone, CAT, KELI, D.N.P. Migraine Headache (Primary Dx); Chronic Pain Syndrome from Last 3 Months Allergies Active Allergy Reactions Criticality Noted Date Comments Amoxicillin-Pot Clavulanate Nausea Only 05/01/2017 Unable to tolerate nausea and ineffective for sinus infections. Clavulanic Acid GI intolerance 06/05/2023 Oxcarbazepine Rash 10/11/2012 Sulfa (Sulfonamide Antibiotics) GI intolerance 06/17/2009 Sulfamethoxazole-Trimetho prim Diarrhea 04/22/2009 Topiramate Rash 10/11/2012 Trimethoprim GI intolerance 06/05/2023 Medications * This document contains information received from the source organization and may not represent a complete record from that organization. zolpidem (AMBIEN) 10 mg tablet Take 1 tablet by mouth at bedtime as needed. sleep 7 Active diazePAM (VALIUM) 5 mg tablet Take 1 tablet by mouth as needed. anxiety 7 Active fentaNYL (DURAGESIC) 50 mcg/hr patch Place 1 patch on the skin every other day. 7 Active fluticasone (FLONASE) 50 mcg/actuation nasal spray Administer 1 spray into affected nostril(s) daily. one sprays per nostril daily as needed 7 Active meclizine (ANTIVERT) 25 mg tablet Take 1 tablet by mouth 3 (three) times a day as needed. for motion sickness 4 Active naloxegol (MOVANTIK) 25 mg tablet Take 1 tablet by mouth as needed. 7 Active MULTIVITAMIN ORAL Take 1 tablet by mouth daily. 2 Active prochlorperazin e (COMPAZINE) 10 mg tablet Take 1 tablet by mouth every 6 (six) hours as needed. Nausea/vomiting 2 Active tiZANidine (ZANAFLEX) 4 mg tablet Take 1 tablet by mouth as needed. muslce relaxant 7 Active ondansetron (ZOFRAN) 4 mg tablet Take 1 tablet by mouth every 8 (eight) hours as needed. Nausea 3 Active HYDROmorphone (DILAUDID) 4 mg tablet 2 mg. 9 Active LYRICA 150 mg capsule Take 150 mg by mouth 2 (two) times a day. 2 9 Active Eliquis 5 mg tablet Take 1 tablet by mouth 2 (two) times a day. 3 Active atorvastatin (LIPITOR) 40 mg tablet Take 40 mg by mouth daily. 3 Active tadalafiL (CIALIS) 20 mg tablet Take 20 mg by mouth as needed. 2 Active venlafaxine (EFFEXOR) 25 mg tablet Take 1 tablet by mouth every morning. 4 Active cholecalciferol (Vitamin D3) 10 mcg (400 Unit) tablet Active docusate calcium (Surfak) 240 mg capsule Active lactulose 10 gram/15 mL solution Take 1.5 g by mouth. 4 Active melatonin 1 mg tablet Active naloxone (Narcan) 4 mg/actuation nasal spray Active naloxone (Narcan) 4 mg/actuation nasal spray Administer 4 mg into nostril(s) daily as needed. 4 Active nicotine polacrilex (Nicorette) 2 mg gum Active tamsulosin (Flomax) 0.4 mg 24 hr capsule Take 1 capsule (0.4 mg total) by mouth daily. 90 capsule 3 4 Active Active Problems Problem Noted Date Diagnosed Date Hot Flash 09/25/2018 Complex Regional Pain Type I Syndrome 09/25/2018 Loss Memory Short Term 09/25/2018 Atypical Facial Pain 09/25/2018 Persistent Migraine Aura Wit hout Cerebral Infarction Intractable Without Status Migrainosus 08/16/2018 Sinusitis Chronic Maxillary 05/23/2017 Abnormal Findings On Diagnos tic Imaging Of Skull And Head Not Elsewhere Classified 03/14/2017 Hyperlipidemia 03/11/2017 Overview (09/25/2018): Overview: The 10-year ASCVD risk score (Scarlet COLE Jr, et al., 2013) is: 8.4% Values used to calculate the score: Age: 56 years Sex: Male Is Non- : No Diabetic: No Tobacco smoker: Yes Systolic Blood Pressure: 100 mmHg Is BP treated: No HDL Cholesterol: 42 mg/dL Total Cholesterol: 200 mg/dL Deficiency Of Other Specified B Group Vitamins 0 03/09/2017 Deficiency Vitamin D 03/09/2017 Tuberculosis Latent 12/04/2014 Chronic Obstructive Pulmonary Disease 09/17/2014 Neuropathy Peripheral 09/26/2013 Loss Hearing Mixed Conduct Sensorineural 013 Osteoporosis 09/17/2012 Nicotine Dependence Unspecified 03/13/2012 Colitis Ulcerative 11/03/2011 Migraine Headache Intractable Chronic 05/01/2011 Aneurysm Cerebral Unruptured 01/19/2010 Overview (09/25/2018): Overview: 4 20 mm Stents placed 09/14/2009. 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 Immunizations Name Administration Dates Next Due Influenza Split 09/17/2016 PPSV23 03/30/2016 Tdap 10/30/2012 Social History Tobacco Use Types Packs/Day Years Used Date Smoking Tobacco: Every Day Cigarettes 0.5 46.9 Started: 09/17/1977 Smokeless Tobacco: Never Tobacco Cessation:Ready to Q uit: Not Asked; Counseling Given: Not Answered Alcohol Use Standard Drinks/Week Comments No 0 [...] Answer Date Recorded Employment status Permanently disabled Housing Stability Answer Date Recorded What is your living situation today? I have a [facility] place to live 06/08/2023 Sex and Gender Information Value Date Recorded Sex Assigned at Male 08/15/2018 7:50 AM TUCKPOINTER Legal Sex Male 1:19 AM TUCKPOINTER Gender Identity Male 08/15/2018 7:50 AM TUCKPOINTER Sexual Orientation Straight 08/15/2018 7: 50 AM TUCKPOINTER Last Filed Vital Signs Vital Sign Reading Time Taken Comments Blood Pressure 100/56 07/14/2024 11:30 AM CDT Pulse 69 07/14/2024 11:45 AM CDT Temperature 36.9 C (98.4 F) 07/14/2024 11:09 AM CDT Respiratory Rate 14 07/14/2024 11:45 AM CDT Oxygen Saturation 94% 07/14/2024 11:45 AM CDT Inhaled Oxygen Concentration - - Weight 75.5 kg (166 lb 7.2 oz) 07/14/2024 8:38 A M CDT Height 185.4 cm (6' 1) 07/14/2024 8:38 AM CDT Body Mass Index 21.96 07/14/2024 8:38 AM CDT Plan of Treatment Not on file Medical Devices Implanted Type Area Supervisor [place] Device Identifier Shelf Expiration Date Model / Serial / Lot Kit Lead Comp Spaced 45cm [id number] - [place] [id number] Implanted:Qty: 1 on 01/15/2013 Electrode Other/Legacy - See Implant Description Medtronic Description:Device Manufactu rer - Medtronic [employer] Inc. Body Location - ?. Not Applicable. Device Status Text - [id number]. Lead-Medtronic Octad 60cm [id number] - [place] [id number] Implanted:Qty: 1 on 02/19/2013 Electrode Right: Other/Legacy - See Implant Description Medtronic Description:Device Manufactu rer - Medtronic [employer] Inc. Body Location - Right. Device Status Text - [id number]. Conversions - Default Historical Implant Device - [place] [id number] Implanted:01/2017 (Quantity not on file) Electrode Description:Device Status Te xt - [id number]. Conversions - Default Historical Implant Device - [place] [id number] Implanted:01/2017 (Quantity not on file) Electrode Description:Device Status Te xt - [id number]. neuro stimulator. Medtronic Boyd Bi-Wing Injex [id number] - [place] [id number] Implanted:Qty: 1 on 02/19/2013 Spinal Cord Stimulator Other/Legacy - See Implant Description Medtronic Description:Device Manufactu rer - Medtronic [employer] Inc. Body Location - ?. Not Applicable. Device Status Text - [id number]. Medtronic-Gene rator Restore Ultra - [place] [id number] Implanted:Qty: 1 on 02/19/2013 Spinal Cord Stimulator Other/Legacy - See Implant Description Medtronic Description:Device Manufactu rer - Medtronic [employer] Inc. Body Location - ?. Not Applicable. Device Status Text - [id number]. Conversions - Default Historical Implant Device Implanted:01/2017 (Quantity not on file) Stent Other Description:Device Status Te xt - StentOthr. cerebral. Conversions - Default Historical Implant Device Implanted:01/2017 (Quantity not on file) Stimulator Other Description:Device Status Te xt - Neurostim. Stent Pipeline Embolization Device [place] - [place] [id number] Implanted:Qty: 4 on 09/14/2009 Vascular Stent Other/Legacy - See Implant Description Description:Device Manufactu [facility] TrendMD. Device Status Text - [id number]. Explanted Type Area Supervisor [place] Device Identifier Shelf Expiration Date Model / Serial / Lot Lead-Medtronic [id number] - [place] [id number] Implanted:Qty: 1 on 02/19/2013 Explanted:Qty: 1 on 07/14/2024 at [facility] Electrode Other/Legacy - See Implant Description Medtronic Description:Device Manufactu rer - Medtronic USA Inc. Body Location - ?. Not Applicable. Device Status Text - [id number]. Lead-Medtronic Octad 60cm [id number] - [place] [id number] Implanted:Qty: 1 on 02/19/2013 Explanted:Qty: 1 on 07/14/2024 at [facility] Electrode Right: Other/Legacy - See Implant Description Medtronic Description:Device Manufactu rer - Medtronic USA Inc. Body Location - Right. Device Status Text - [id number]. Pocket Sizer Medtronic 3550-69 - [place] [id number] Implanted:Qty: 1 on 02/19/2013 Explanted:Qty: 1 on 07/14/2024 at [facility] Stimulator Other Medtronic Description:Device Manufactu rer - Medtronic USA Inc. Device Status Text - [id number]. Procedures Procedure Name Priority Date/Time Associated Diagnosis Comments ADULT OXYGEN THERAPY Routine 07/14/2024 11:09 AM CDT FL FLUORO LESS THAN 1 HOUR RAD - Routine (most inpatients and all outpatients) 07/14/2024 10:44 AM CDT LDA ANE ENDOTRACHEAL AIRWAY Routine 07/14/2024 10:00 AM CDT REVISION OR REMOVAL DORSAL COLUMN STIMULATOR 07/14/2024 9:38 AM CDT Occipital Neuralgia Headache Chronic Case Notes Service: Dr. Farah-op orders: Family: WifeRx: [employer] preferred pharmD/C plans: HomeAssistive Devices: N/AOther needs: None BASIC METABOLIC PANEL, S/P Routine 01/30/2024 12:05 PM CDT Abnormal Level Of Hormones In Specimens From Other Organs Systems And Tissues LIPID PANEL, S Routine 10/20/2016 11:16 AM TUCKPOINTER from Last 3 Months or Most Recently Relevant to Health Maintenance Results * FL Fluoro Less Than 1 Hour (07/14/2024 10:44 AM CDT) Narrative [id number] - 07/14/2024 10:45 AM CDT This exam does not require a radiologist review or interpretation. Please refer to the patient's medical record on this date for clinical details. Jennifer Corral M.D. IMG FLUOROSCOPY PROCEDURES Final Result [id number] NA * LDA ANE ENDOTRACHEAL AIRWAY (07/14/2024 10:00 AM CDT) Narrative Fawad Bassett APRN, CRNA, MNA - 07/14/2024 10:00 AM CDT Fawad Bassett APRN, CRNA, MNA 07/14/2024 10:01 AM Airway Date/Time: 07/14/2024 10:00 AM Performed by: Fawad Bassett APRN, CRNA, MNA Authorized by: Fawad Bassett APRN, CRNA, MNA Patient location during procedure: OR / Procedure Area PROCEDURE DETAILS: Mask difficulty assessment: easy mask Final airway type: video laryngoscope Laryngeal Manipulation: no Final best view of glottic structures - Cormack/Lehane Score: grade 1 ETT location: oral VL device: glide scope [place] scope blade size: 4 Tube size: 7 ETT distance at teeth/gum: 23 Oral tube type: standard ETT Cuffed: yes Number of attempt to successful placement: 1 Airway confirmation: bilateral breath sounds, positive ETCO2 and bilateral chest rise Other previous techniques attempted: none PRE PROCEDURE DETAILS: Pre evaluation for airway management: procedure Urgency: elective Preop assessment of probable difficulty: no difficulty anticipated Preoxygenation: bag valve mask SEDATION / ANESTHESIA Anesthesia method: anesthesia POST PROCEDURE DETAILS: Procedure outcome: successful Notable Events: no complications us Fawad Bassett APRN, CRNA, MNA ANESTHESIA JOCE WATSONPATRICIA Final Result * Basic Metabolic Panel (01/30/2024 12:05 PM CDT) Potassium, S 3.9 3.6 - 5.2 mmol/L 01/30/2024 1:51 PM CDT DTL Sodium, S 140 135 - 145 mmol/L 01/30/2024 1:51 PM CDT DTL Chloride, S 104 98 - 107 mmol/L 01/30/2024 1:51 PM CDT DTL Bicarbonate, S 28 22 - 29 mmol/L 01/30/2024 1:51 PM CDT DTL Anion Gap 8 7 - 15 01/30/2024 1:51 PM CDT DTL BUN (Blood Urea Nitrogen), S 11 8 - 24 mg/dL 01/30/2024 1:51 PM CDT DTL Creatinine 0.95 0.74 - 1.35 mg/dL 01/30/2024 1:51 PM CDT DTL Estimated GFR (eGFR) 90 >=60 mL/min/BSA 01/30/2024 1:51 PM CDT DTL Comment: Estimated GFR calculated using the 2020 CKD_EPI creatinine equation. Calcium, Total, S 9.1 8.8 - 10.2 mg/dL 01/30/2024 1:51 PM CDT DTL Glucose, S 75 70 - 140 mg/dL 01/30/2024 1:51 PM CDT DTL Blood (Blood, Venous) 01/30/2024 12:05 PM CDT 01/30/2024 12:58 PM CDT us Nicolasa Brower P.A.-C., M.S. LAB BLOOD ADD-ON Fin al Result [facility] [place] [address] [place] [address], [facility] DTL [facility] [address] [place] [address] * Lipid Panel (10/20/2016 11:16 AM TUCKPOINTER) Cholesterol, HDL, S 47 >=40 MG/DL [facility] [place] Calculated LDL 114 SeeComment MG/DL [facility] [place] Comment: REFERENCE VALUE Desirable: <100 Above Desirable: 100-129 Borderline high: 130-159 High: 160-189 Very high: > or =190 Cholesterol, Non-HDL, Calculated 134 SeeComment MG/DL [facility] [place] Comment: REFERENCE VALUE Desirable: <130 Above Desirable: 130-159 Borderline high: 160-189 High: 190-219 Very high: > or =220 Cholesterol, Total 181 SeeComment MG/DL [facility] [place] Comment: REFERENCE VALUE Desirable: < 200 Borderline high: 200 - 239 High: > or = 240 Triglycerides 102 SeeComment MG/DL [facility] [place] Comment: REFERENCE VALUE Normal: <150 Borderline high: 150-199 High: 200-499 Very high: > or =500 10/20/2016 11:1 6 AM TUCKPOINTER 10/20/2016 11:16 AM TUCKPOINTER us Tiara Huerta M.D. LAB BLOOD ADD-ON Final Resul t [facility] [place] [address] [place] [address], [facility] from Last 3 Months or Most Recently Relevant to Health Maintenance Insurance [facility] Care Teams Plate Worker Helper Relationship Specialty Start Date End Date Elsewhere, Pcp PCP - General Internal Medicine 06/03/23
--- OUTSIDE RECORDS SUMMARY | 2024-08-13 11:58 | XMS_ITS ---
Author Organization [facility] Address [address] [place] [address] Care Team Providers Care Program Research Specialist Name Role Phone Unavailable Unavailable Unavailable Surgery Details Not on file Complications Check Surgery Details section. Procedure Estimated Blood Loss Check Surgery Details section. Procedure Findings Check Surgery Details section. Procedure Specimens Taken Check Surgery Details section.
--- OUTSIDE RECORDS SUMMARY | 2024-08-13 11:58 | XMS_ITS | Encounter Summary ---
Author Organization [facility] Address [address] [place] [id number] Care Team Providers Care Shellfish Shucker Name Role Phone Elsewhere, Pcp Primary Care Provider Unavailabl e Reason for Visit * Auth/Cert (Routine) Specialty Diagnoses / Procedures Referred By Contac t Referred To Contact Diagnoses intractable pain Procedures NJ REV/RMV IMP SPI NPGR DTCH CN REMOVAL MEDTRONIC DORSAL COLUMN STIMULATOR Merrill Norton M.D. [address] [place] [phone] Phone: tel: fax: Referral ID Status Reason Start Date Expiration Date Visits Re quested Visits Authorized [id number] 1 1 Encounter Details Date Type Department Care Team ([facility] st Contact Info) Description 07/14/2024 9:36 AM CDT - 07/14/2024 11:25 AM CDT Surgery Outpatient [facility] in [place], [place] [address] [place] [phone] Merrill Norton M.D. [address] [place] [phone] REMOVAL MEDTRONIC DORSAL COLUMN STIMULATOR. Social History Tobacco Use Types Packs/Day Years [...] your living situation today? I have a [facility] place to live 06/08/2023 Sex and Gender Information Value Date Recorded Sex Assigned at Male 08/15/2018 7:50 AM SOCK IRONER Legal Sex Male 1:19 AM SOCK IRONER Gender Identity Male 08/15/2018 7:50 AM SOCK IRONER Sexual Orientation Straight 08/15/2018 7: 50 AM SOCK IRONER documented as of this encounter Last Filed Vital Signs Vital Sign Reading Time Taken Comments Blood Pressure 106/55 07/14/2024 11:15 AM CDT Pulse 74 07/14/2024 11:15 AM CDT Temperature 36.9 C (98.4 F) 07/14/2024 11:09 AM CDT Respiratory Rate 16 07/14/2024 11:15 AM CDT Oxygen Saturation 93% 07/14/2024 11:15 AM CDT Inhaled Oxygen Concentration - - Weight 75.5 kg (166 lb 7.2 oz) 07/14/2024 8:38 A M CDT Height 185.4 cm (6' 1) 07/14/2024 8:38 AM CDT Body Mass Index 21.96 07/14/2024 8:38 AM CDT documented in this encounter Discharge Instructions * Discharge Instructions* Jennifer Corral M.D. - 07/14/2024 9:43 AM CDT Device Explant Instructions Activity Restrictions Refrain from intensive physical activity for the first 2 weeks. Specific restrictions: Do not drive Do not lift over 5 pounds Avoid high-impact movements After 2 weeks, you may resume normal activities. Infection Prevention Take antibiotics as prescribed by your surgical team. Do not remove dressings for 48 hours, then change dressings daily until your next follow-up visit. Remove dressings before shower, pat incisions dry afterwards, allow to air dry, and replace the dressings (gauze and tape - provided by nurse) If changing dressings without showering, wash hands thoroughly before removing and replacing No showers until 48 hours post-procedure. Do not completely submerge incisions under water until after 14 days (includes baths and swimming in pools or lakes/oceans) Monitor incisions for signs of infection: Signs/symptoms: worsening pain, redness, swelling, temperature greater than 100.4F, yellow/green ormalodorous drainage from incisions If any of the above are identified, call the Pain Clinic Nurse Contact Number or ???Anesthesia PainOutpatient Adult Doctor on-call?? via the [facility] Heat Treater Apprentice (phone: [phone]) Pain Control Your surgeon may provide you with approximately three days of pain medications. Use ice packs 20 minutes on/off as needed. Follow-Up Return to Pain Clinic (or your local provider if traveling from a distance) on post-op day 10-14 toinspect incisions and remove sutures or berlin, if present. This visit will be scheduled for you by your surgical team. If you were asked to stop medication prior to your surgery, ask your care team when it is ok to resume this medication. Please call the Pain Clinic Nurse Contact Number or ???Anesthesia Pain Outpatient Adult Doctor on-call?? via the [facility] Heat Treater Apprentice (phone: [phone]) if you experience a new, severe headache that is worse with standing and better when lying down. documented in this encounter Medications at Time of Discharge atorvastatin (LIPITOR) 40 mg tablet Take 40 mg by mouth daily. 01/26/2023 cholecalciferol (Vitamin D3) 10 mcg (400 Unit) tablet diazePAM (VALIUM) 5 mg tablet Take 1 tablet by mouth as needed. anxiety 10/20/2016 docusate calcium (Surfak) 240 mg capsule Eliquis 5 mg tablet Take 1 tablet by mouth 2 (two) times a day. 06/04/2023 fentaNYL (DURAGESIC) 50 mcg/hr patch Place 1 patch on the skin every other day. 10/20/2016 fluticasone (FLONASE) 50 mcg/actuation nasal spray Administer 1 spray into affected nostril(s) daily. one sprays per nostril daily as needed 05/22/2017 HYDROmorphone (DILAUDID) 4 mg tablet 2 mg. 10/21/2018 lactulose 10 gram/15 mL solution Take 1.5 g by mouth. 01/22/2024 LYRICA 150 mg capsule Take 150 mg by mouth 2 (two) times a day. 2 10/19/2018 meclizine (ANTIVERT) 25 mg tablet Take 1 tablet by mouth 3 (three) times a day as needed. for motion sickness 10/23/2013 melatonin 1 mg tablet MULTIVITAMIN ORAL Take 1 tablet by mouth daily. 11/03/2011 naloxegol (MOVANTIK) 25 mg tablet Take 1 tablet by mouth as needed. 10/20/2016 naloxone (Narcan) 4 mg/actuation nasal spray naloxone (Narcan) 4 mg/actuation nasal spray Administer 4 mg into nostril(s) daily as needed. 03/11/2024 nicotine polacrilex (Nicorette) 2 mg gum ondansetron (ZOFRAN) 4 mg tablet Take 1 tablet by mouth every 8 (eight) hours as needed. Nausea 01/15/2013 prochlorperazine (COMPAZINE) 10 mg tablet Take 1 tablet by mouth every 6 (six) hours as needed. Nausea/vomiting 04/11/2012 tadalafiL (CIALIS) 20 mg tablet Take 20 mg by mouth as needed. 08/21/2022 tamsulosin (Flomax) 0.4 mg 24 hr capsule Take 1 capsule (0.4 mg total) by mouth daily. 90 capsule 3 06/02/2024 tiZANidine (ZANAFLEX) 4 mg tablet Take 1 tablet by mouth as needed. muslce relaxant 10/20/2016 venlafaxine (EFFEXOR) 25 mg tablet Take 1 tablet by mouth every morning. 10/29/2023 zolpidem (AMBIEN) 10 mg tablet Take 1 tablet by mouth at bedtime as needed. sleep 10/20/2016 documented as of this encounter OR Notes * Op Note - Jennifer Corral M.D. - 07/14/2024 10:17 AM CDT Pre-op Diagnosis Occipital Neuralgia Headache Chronic Post-op Diagnosis Occipital Neuralgia Headache Chronic Robotics Engineer A outpatient physical therapist assistant actively participated and was necessary for one or more of the following: opening, exposure and visualization, maintaining hemostasis, wound closure resulting in its safe and expeditious completion. Findings As expected Complications None Operative Note Narrative Medtronic Stimulator Explant The patient was identified and evaluated in the preoperative holding area. Risks, benefits, alternatives and team approach were discussed, and the pertinent surgical site was verified and marked withinitials. The patient had an opportunity to ask questions, and wished to proceed. The patient was transported to the operating room and carefully positioned. Anesthetic care was provided without complication. The patient was then prepped and draped in usual sterile fashion. A procedural pause was then conducted. A sterile surgical marker was used to padmini the IPG pocket site on the right chest wall as well as the strain relief loop site at the right neck. Local anesthetic was injected superficially along the sites. An incision was then made along the pocket site and blunt dissection was used to expose the IPG, which was removed completely and disconnected from the attached leads using scissors. A second incision was then made at the neck and blunt dissection was again used to expose both leads and anchors. Once fully dissected, both leads were pulled out completely along with the respective anchors. Any residual sutures were removed and cautery was performed where needed to minimize bleeding. Fluoroscopy from multiple views was used to ensure the complete removal of all components of the stimulator system. All incision sites were copiously irrigated, treated with the additives listed below, and hemostasis was assured. All incisions were closed in two layers. A sterile bio-occlusive bandage was applied to each wound. The patient tolerated the procedure well without evidence of complication. The anesthetic was discontinued. The patient was transferred from the operating table to the stretcher withoutdifficulty. After appropriate amount of observation in the outpatient holding area, the patient wasdischarged. Technical Details Skin Preparation: Chlorhexidine Local anesthetic: 1:1 mixture of 1% lidocaine and 0.5% bupivacaine with 1:200,000 epinephrine Incision treatments: povidone iodine Deep Closure: 2-0 Vicryl Skin Closure: Running 4-0 Monocryl suture Imaging: Fluoroscopic image guidance used to localize target, identify at risk structures, and dynamically used to direct therapy to the target. Image(s) acquired and saved. Intra-operative Medications Intra-op Medications Date/Time Order Dose Route Action Action by 07/14/2024 1010 CDT ceFAZolin injection 2 g (Ancef) 2 g intravenous Given Payal Bassett 07/14/2024 1037 CDT CROniwasdyo-wwyeouprs-pexroygpkma 0.25%-0.5%-1:200,000 injection (Herberth 2 alternative) 8 mL subcutaneous Given Eulalia Norton 07/14/2024 1048 CDT povidone iodine 0.25% in NaCl 0.9% irrigation solution 500 mL irrigation Given Eulalia Norton M.D. Cosigned by Merrill Norton M.D. at 07/14/2024 1:54 PM CDT documented in this encounter Plan of Treatment Not on file documented as of this encounter Procedures Procedure Name Priority Date/Time Associated Diagnosis Comments ADULT OXYGEN THERAPY Routine 07/14/2024 11:09 AM CDT FL FLUORO LESS THAN 1 HOUR RAD - Routine (most inpatients and all outpatients) 07/14/2024 10:44 AM CDT REVISION OR REMOVAL DORSAL COLUMN STIMULATOR 07/14/2024 9:38 AM CDT Occipital Neuralgia Headache Chronic Case Notes Service: Dr. Farah-op orders: Family: WifeRx: [employer] preferred pharmD/C plans: HomeAssistive Devices: N/AOther needs: None documented in this encounter Results * FL Fluoro Less Than 1 Hour (07/14/2024 10:44 AM CDT) Narrative [id number] - 07/14/2024 10:45 AM CDT This exam does not require a radiologist review or interpretation. Please refer to the patient's medical record on this date for clinical details. us Jennifer Corral M.D. IMG FLUOROSCOPY PROCEDURES Final Result [id number] NA documented in this encounter Visit Diagnoses Diagnosis Occipital Neuralgia Headache Chronic documented in this encounter Administered Medications Inactive Administered Medications - up to 3 most recent administrations Medication Order MAR Action Action Date Dose Rate Site BUPivacaine-lidocaine -epinephrine 0.25%-0.5%-1:200,000 injection (Herberth 2 alternative) 50 mL, subcutaneous, Once, On Sun07/14/24 at 0915, For 1 dose, Intra-Op, In OR used as local anesthetic Given 07/14/2024 10:37 AM CDT 8 mL Right Neck celecoxib capsule 200 mg (CeleBREX) 200 mg, oral, Once, On Sun07/14/24 at 0930, For 1 dose, Pre-Op Given 07/14/2024 9:13 AM CDT 200 mg Lactated Ringer's 20 mL/hr, intravenous, Continuous, Starting on Sun07/14/24 at 0930 Continued from OR 07/14/2024 11:11 AM CDT 20 mL/hr 20 mL/hr New Bag 07/14/2024 10:35 AM CDT Restarted 07/14/2024 9:54 AM CDT metoprolol tablet 12.5 mg (Lopressor) 12.5 mg, oral, Once as needed, if patient did not take their last scheduled dose of beta skinny prior to arrival, Starting on Sun07/14/24 at 0836, For 1 dose, Pre-Op, Do not give if patient does not take scheduled beta blockers, if patient is receiving intravenous vasopressors or inotropes, if heart rate is less than 50 beats per minute, if systolic blood pressure is less than 90 mmHg or if diastolic blood pressure is less than 40 mmHg, or if patient has an allergy to metoprolol. povidone iodine 0.25% in NaCl 0.9% irrigation solution irrigation, Once, On Sun07/14/24 at 0915, For 1 dose, Intra-Op Given 07/14/2024 10:48 AM CDT 500 mL Right Neck sodium chloride 0.9 % injection 10 mL 10 mL, intravenous, As needed, line care, Starting on Sun07/14/24 at 0836, Pre-Op, Peripheral Intravenous Catheter and Rapid Infusion Catheter, prior to blood sampling, post blood transfusion or post blood sampling sodium chloride 0.9 % injection 3 mL 3 mL, intravenous, As needed, line care, Starting on Sun07/14/24 at 0836, Pre-Op, Prior to and following infusion and between multiple consecutive infusions: sodium chloride 0.9 % injection sodium chloride 0.9 % injection 3 mL 3 mL, intravenous, Every 12 hours scheduled, First dose on Sun07/14/24 at 0900, Pre-Op, Peripheral Intravenous Catheter and Rapid Infusion Catheter, when no infusion to maintain patency documented in this encounter Active and Recently Administered Medications Times are shown in CDT. Scheduled Medication Order 07/12/2024 07/13/2024 07/14/2024 acetaminophen tablet 1,000 mg (TylenoL) 1,000 mg, oral, Once, On Sun07/14/24 at 0930, For 1 dose, Pre-Op 0930 (Due) OAOxjxxdvau-essjwspnx-thpvxxdogcv 0.25%-0.5%-1:200,000 injection (Herberth 2 alternative) (COMPLETED) 50 mL, subcutaneous, Once, On Sun07/14/24 at 0915, For 1 dose, Intra-Op, In OR used as local anesthetic 0915 (Due)1037 (Give n - Provider: Merrill Norton M.D.) ceFAZolin injection 2 g (Ancef) (COMPLETED) 2 g, intravenous, Once, On Sun07/14/24 at 0915, For 1 dose, Intra-Op, Administer within 1 hour prior to surgical incision For immediate IV push administration, reconstitute vial per IVAG or package insert instructions. See IVAG for administration guidelines., Drug Monitoring Program: Pharmacist to adjust medication dosing based on indication and drug clearance factors., Indications: Prophylaxis, surgical 1010 (Given - Provid er: Fawad Bassett APRN, CRNA, ELIAS) celecoxib capsule 200 mg (CeleBREX) (COMPLETED) 200 mg, oral, Once, On Sun07/14/24 at 0930, For 1 dose, Pre-Op 0913 (Given - Provid er: Janet Goldberg R.N.) lidocaine (PF) 10 mg/mL (1 %) injection 0.1 mL (Xylocaine) 0.1 mL, intradermal, Once, On Sun07/14/24 at 0900, For 1 dose, Pre-Op, For IV Placement, Chief Safety Officer, PreOp 0900 (Due) povidone iodine 0.25% in NaCl 0.9% irrigation solution (COMPLETED) irrigation, Once, On Sun07/14/24 at 0915, For 1 dose, Intra-Op 0915 (Due)1048 (Give n - Provider: Merrill Norton M.D.) sodium chloride 0.9 % injection 3 mL 3 mL, intravenous, Every 12 hours scheduled, First dose on Sun07/14/24 at 0900, Pre-Op, Peripheral Intravenous Catheter and Rapid Infusion Catheter, when no infusion to maintain patency 0900 (Due) traMADoL tablet 50 mg (Ultram) 50 mg, oral, Once, On Sun07/14/24 at 1130, For 1 dose, PACU (only), Restriction Criteria (Pharmacy will review and approve if criteria met): Use in adults 18 years and older 1130 (Due) Continuous Medication Order 07/12/2024 07/13/2024 07/14/2024 Lactated Ringer's 20 mL/hr, intravenous, Continuous, Starting on Sun07/14/24 at 0930 0911 (New Bag - Prov ider: Janet Goldberg R.N.)0953 (Rate/Dose Verify - Provider: Fawad Bassett APRN, CRNA, ELIAS)0953 (Paused - Provider: Fawad Bassett APRN, CRNA, ELIAS - Comment: Switch to gravity)0954 (Restarted - Provider: Fawad Bassett APRN, CRNA, ELIAS)1035 (New Bag - Provider: Fawad Bassett APRN, PATRICIA, ELIAS)1037 (Anesthesia Volume Adjustment - Provider: Fawad Bassett APRN, PATRICIA, ELIAS)1111 (Continued from OR - Provider: Kristine Bowser R.N.)1201 (Stopped - Provider: Janet Goldberg R.N.) PRN Medication Order 07/12/2024 07/13/2024 07/14/2024 fentaNYL injection 25 mcg (Sublimaze) 25 mcg, intravenous, Every 2 min PRN, moderate pain or score 4-6 of 10, severe pain or score 7-10 of 10, Starting on Sun07/14/24 at 1109, PACU (only), Up to maximum total dose of 200 mcg granisetron (PF) injection 1 mg (KytriL) 1 mg, intravenous, Once as needed, nausea, vomiting, Starting on Sun07/14/24 at 1109, For 1 dose, PACU (only), If patient does not respond to ondansetron or haloperidol. (Order of antiemetic administration - ondansetron then haloperidol or droperidol then granisetron) ketamine injection 10 mg (Ketalar) 10 mg, intravenous, Once as needed, Refractory moderate pain or score 4-6 of 10, Refractory severe pain score 7-10 of 10 after fentanyl or hydromorphone administration, Pain sedation mismatch AND RASS less than -1, Starting on Sun07/14/24 at 1109, For 1 dose, PACU (only) metoprolol tablet 12.5 mg (Lopressor) 12.5 mg, oral, Once as needed, if patient did not take their last scheduled dose of beta skinny prior to arrival, Starting on Sun07/14/24 at 0836, For 1 dose, Pre-Op, Do not give if patient does not take scheduled beta blockers, if patient is receiving intravenous vasopressors or inotropes, if heart rate is less than 50 beats per minute, if systolic blood pressure is less than 90 mmHg or if diastolic blood pressure is less than 40 mmHg, or if patient has an allergy to metoprolol. oxyCODONE IR tablet 10 mg (Roxicodone) 10 mg, oral, Once as needed, For pain 4 or greater, Starting on Sun07/14/24 at 1109, For 1 dose, PACU (only) sodium chloride 0.9 % injection 10 mL 10 mL, intravenous, As needed, line care, Starting on Sun07/14/24 at 0836, Pre-Op, Peripheral Intravenous Catheter and Rapid Infusion Catheter, prior to blood sampling, post blood transfusion or post blood sampling sodium chloride 0.9 % injection 3 mL 3 mL, intravenous, As needed, line care, Starting on Sun07/14/24 at 0836, Pre-Op, Prior to and following infusion and between multiple consecutive infusions: sodium chloride 0.9 % injection documented in this encounter Additional Health Concerns Assessment Noted Time PHQ-9 Depression Total Score: 19 019 9:11 AM CDT documented as of this encounter Care Teams Shellfish Shucker Relationship Specialty Start Date End Date Elsewhere, Pcp PCP - General Internal Medicine 06/03/23 documented as of this encounter
--- OUTSIDE RECORDS SUMMARY | 2024-08-13 11:58 | XMS_ITS | Encounter Summary ---
Author Organization [facility] Address [address] [place] [address] Care Team Providers Care Banking Teacher Name Role Phone Elsewhere, Pcp Primary Care Provider Unavailabl e Reason for Visit * Auth/Cert (Routine) Specialty Diagnoses / Procedures Referred By Contac t Referred To Contact Diagnoses intractable pain Procedures TN REV/RMV IMP SPI NPGR DTCH CN REMOVAL MEDTRONIC DORSAL COLUMN STIMULATOR Merrill Norton M.D. [address] [place] [address] Phone: tel: fax: Referral ID Status Reason Start Date Expiration Date Visits Re quested Visits Authorized [id number] 1 1 Encounter Details Date Type Department Care Team (Late st Contact Info) Description 07/14/2024 9:53 AM CDT Anesthesia Event [facility] in [place], [place] [address] [place] [address] Fawad Bassett APRN, CRNA, ELIAS [address] [place] [address] Anesthesia Record Procedure Summary Procedure Name Responsible Anesthesiologist Anesthesia Start Time Anesthesia Stop Time REMOVAL MEDTRONIC DORSAL COLUMN STIMULATOR. (Chest) Fawad Bassett APRN, CRNA, MNA 07/14/24 0953 07/14/24 1120 Events Date Time Event Comment 07/14/2024 0953 An Start Machine/Equipme nt Checked Infection Precautions Followed Procedure/Site Verified NPO Status Verified Supine Standard ASA Monitors Applied 0959 An Induction 1000 An Intubation 1001 Turnover to Proceduralist 1017 Proc Start 1057 Proc Fin 1102 Turnover to ANE Staff 1102 Airway Removal Criteria Met 1102 Extubation/Airway Removed 1120 an stop data 1120 An End I completed my handoff to the receiving staff during which we 1. Identified the patient 2. Identified the responsible provider 3. Reviewed the pertinent medical history 4. Discussed the surgical course 5. Reviewed intra-op anesthesia management and issues during anesthesia 6. Set expectations for post-procedure period 7. Allowed opportunity for questions and acknowledgement of understanding. Meds Name Total fentanyl injection 50 mcg/mL 50 mcg lidocaine 2% (mg) injection 60 mg rocuronium 10 mg/mL injection 50 mg phenylephrine 100 mcg/mL injection 450 m cg ePHEDrine PF 5 mg/mL syringe injection 2 5 mg ondansetron 4 mg/2 mL injection 4 mg propofol 10 mg/mL infusion 395.24 mg propofol 10 mg/mL injection 200 mg ceFAZolin injection 2 g (Ancef) 2 g ketamine 10 mg/mL injection 10 mg dexAMETHasone (Decadron) injection 4 mg/ mL 8 mg sugammadex 100 mg/mL injection 151 mg Lactated Ringer's 1,050 mL * Agents No agents on file. * Blood No blood administrations on file. Lines, Drains, and Airways Type Details Placement Removal Wound 07/14/24; N; Incisio n; Neck; Right 07/14/24 0000 by Bear Muñoz RAnthonyNAnthony Wound 07/14/24; 1020; N; Incision; Chest; Right, Upper 07/14/24 1020 by Bear Muñoz R.NAnthony Peripheral IV Placement Date: 06/18 05/10; Placement Time: 09; Catheter Size: 20 G; Orientation: Anterior, Left, Lower; Location: Forearm; Site Prep: Chlorhexidine (Preferred); Technique: Anatomical landmarks; Insertion Attempts: 1; Removal Date: 07/14/24; Removal Time: 1201; Removal Reason: Per order 07/14/24 0906 by Janet Goldberg, R.NAnthony 07/14/24 1201 by Janet Goldberg R.N. ETT Placement Date: 06/18 05/10; Placement Time: 1000 (created via procedure documentation); Mask Ventilation: Easy mask; Technique: Video laryngoscopy; Type: Standard ETT; Single Lumen Tube Size: 7 mm; Cuffed: Yes; Location: Oral; Grade View: Grade 1; Insertion Attempts: 1; Placement Verification: Bilateral breath sounds, Positive ETCO2, Symmetrical chest wall movement; Removal Date: 07/14/24; Removal Time: 11007/14/24 1000 by Fawad Bassett APRN, CRNA, MNA 07/14/24 1102 by Fawad Bassett APRN, CRNA, MNA documented in this encounter Social History Tobacco Use Types Packs/Day Years [...] money to buy more. Never true 06/08/20 Within the past 12 months, t he [...] your living situation today? I have a [facility] place to live 06/08/2023 Sex and Gender Information Value Date Recorded Sex Assigned at Male 08/15/2018 7:50 AM HEDIS ANALYST Legal Sex Male 1:19 AM HEDIS ANALYST Gender Identity Male 08/15/2018 7:50 AM HEDIS ANALYST Sexual Orientation Straight 08/15/2018 7: 50 AM HEDIS ANALYST documented as of this encounter OR Notes * Anesthesia Postprocedure Evaluation - Fawad Bassett APRN, CRNA, MNA - 07/14/2024 11:21 AM CDT Patient: Inocencio Andrew Procedure Summary Date: 07/14/24 Room / Location: [place] [address] / [facility] in [place], [place] Anesthesia Start: 952 Anesthesia Stop: 1119 Procedure: REMOVAL MEDTRONIC DORSAL COLUMN STIMULATOR. (Chest) Diagnosis: Occipital Neuralgia Headache Chronic (intractable pain.) Surgeons: Merrill Norton M.D. Responsible Provider: Fawad Bassett APRN, CRNA, MNA Anesthesia Type: general ASA Status: 3 Anesthesia Type: general Last vitals Vitals Value Taken Time BP 106/55 07/14/24 1115 Temp 36.9 ??C 07/14/24 1109 Pulse 78 07/14/24 1120 Resp 11 07/14/24 1120 SpO2 94 % 07/14/24 1120 Vitals shown include unfiled device data. Please reference Vitals flowsheet for most recent vital signs. Anesthesia Post Evaluation Patient Disposition: dismissal Cardiovascular status: hemodynamics (HR & BP) acceptable Respiratory status: patent airway with spontaneous effort Temperature: normothermic Oxygen requirements: room air Level of consciousness: awake Pain score: pain adequately controlled and/or at baseline Post Op nausea/vomiting: none Hydration status: euvolemic Notable Events No notable events documented. * Anesthesia Procedure Notes - Fawad Bassett APRN, CRNA, MNA - 07/14/2024 10:00 AM CDTAssociated Order(s): Airway Airway Date/Time: 07/14/2024 10:00 AM Performed by: Fawad Bassett APRN, CRNA, MNA Authorized by: Fawad Bassett APRN, CRNA, MNA Patient location during procedure: OR / Procedure Area PROCEDURE DETAILS: Mask difficulty assessment: easy mask Final airway type: video laryngoscope Laryngeal Manipulation: no Final best view of glottic structures - Cormack/Lehane Score: grade 1 ETT location: oral VL device: glide scope Bradford scope blade size: 4 Tube size: 7 [...] Procedure outcome: successful Notable Events: no complications * Anesthesia Preprocedure Evaluation - Maurilio Acosta M.D. - 07/14/2024 9:01 AM CDT Preprocedure Anesthesia & H&P Assessment Procedure Summary Date/Time: 07/14/24 0936 Procedure: REMOVAL MEDTRONIC DORSAL COLUMN STIMULATOR. (Back) Diagnosis: Occipital Neuralgia [M54.81] Headache Chronic [R51.9] Pre-op diagnosis: intractable pain. Location: [address] in [place], [place] Surgeons: Merrill Norton M.D. Pertinent components of the patient's history including current problem list, medical history, surgical history, family history, social history, medications and allergies were reviewed. Present illness and pre-op diagnosis were confirmed. The planned surgery / procedure was verified with the patient / legal guardian. The patient's general health condition remains unchanged RELEVANT COMORBID CONDITIONS RESP (+) Chronic Obstructive Pulmonary Disease (HCC) NEURO (+) Aneurysm Carotid Artery (HCC) (+) Aneurysm Cerebral Unruptured (HCC) GI (+) Colitis Ulcerative (HCC) Other (+) Nicotine Dependence Unspecified OBJECTIVE PHYSICAL EXAMINATION Airway (HEENT) Mallampati: II Cardiovascular Rhythm: Regular Functional Capacity: >4 METS Pulmonary Pulmonary Assessment: Clear General / Constitutional Constitutional Assessment: Normal ASSESSMENT / PLAN ANESTHESIA PLAN ASA: 3 Anesthesia Plan: general Patient seen and allergies reviewed, anesthesia plan and risks discussed directly with patient /legal guardian or through an injection mold technician. Risks/Benefits/Alternatives of Blood transfusion discussed with patient / legal guardian, includingan opportunity to ask questions and/or decline some or all transfusion therapies. The patient / legal guardian consented to the use of all blood products, as deemed medically necessary Approval to Proceed: approved for anesthesia documented in this encounter Plan of Treatment Not on file documented as of this encounter Procedures Procedure Name Priority Date/Time Associated Diagnosis Comments LDA ANE ENDOTRACHEAL AIRWAY Routine 07/14/2024 10:00 AM CDT documented in this encounter Results * LDA ANE ENDOTRACHEAL AIRWAY (07/14/2024 10:00 [...] ETT location: oral VL device: glide scope Bradford scope blade size: 4 Tube size: 7 [...] Procedure outcome: successful Notable Events: no complications Fawad Bassett MECHANIC CHIEF, JIG WORKER, MNA ANESTHESIA ORDE RABLES Final Result documented in this encounter Visit Diagnoses Not on filedocumented in this encounter Administered Medications Inactive Administered Medications - up to 3 most recent administrations Medication Order MAR Action Action Date Dose Rate Site ceFAZolin injection 2 g (Ancef) 2 g, intravenous, Once, On Sun07/14/24 at 0915, For 1 dose, Intra-Op, Administer within 1 hour prior to surgical incision For immediate IV push administration, reconstitute vial per IVAG or package insert instructions. See IVAG for administration guidelines., Drug Monitoring Program: Pharmacist to adjust medication dosing based on indication and drug clearance factors., Indications: Prophylaxis, surgicalIndications:Prophylaxis, surgical Given 07/14/2024 10:10 AM CDT 2 g dexAMETHasone injection (Decadron) intravenous, As needed, Starting on Sun07/14/24 at 1017, Anesthesia Intra-op Given 07/14/2024 10:17 AM CDT 8 mg ePHEDrine (PF) injection intravenous, As needed, Starting on Sun07/14/24 at 1011, Anesthesia Intra-op Given 07/14/2024 10:21 AM CDT 15 mg Given 07/14/2024 10:11 AM CDT 10 mg fentaNYL injection (Sublimaze) intravenous, As needed, Starting on Sun07/14/24 at 0957, Anesthesia Intra-op Given 07/14/2024 9:57 AM CDT 50 mcg ketamine injection (Ketalar) intravenous, As needed, Starting on Sun07/14/24 at 0957, Anesthesia Intra-op Given 07/14/2024 9:57 AM CDT 10 mg Lactated Ringer's 20 mL/hr, intravenous, Continuous, Starting on Sun07/14/24 at 0930 Continued from OR 07/14/2024 11:11 AM CDT 20 mL/hr 20 mL/hr New Bag 07/14/2024 10:35 AM CDT Restarted 07/14/2024 9:54 AM CDT lidocaine (PF) (cardiac) injection intravenous, As needed, Starting on Sun07/14/24 at 0957, Anesthesia Intra-op Given 07/14/2024 9:57 AM CDT 60 mg ondansetron (PF) injection (Zofran) intravenous, As needed, Starting on Sun07/14/24 at 0957, Anesthesia Intra-op Given 07/14/2024 9:57 AM CDT 4 mg phenylephrine injection intravenous, As needed, Starting on Sun07/14/24 at 1012, Anesthesia Intra-op Given 07/14/2024 10:52 AM CDT 100 m cg Given 07/14/2024 10:39 AM CDT 100 mcg Given 07/14/2024 10:24 AM CDT 100 mcg propofol 10 mg/mL infusion (Diprivan) intravenous, Continuous Infusion: Per Instructions PRN, Starting on Sun07/14/24 at 0957, Anesthesia Intra-op Rate/Dose Change 07/14/2024 10:36 AM CDT 50 mcg/kg/min 22.65 mL/hr Rate/Dose Change 07/14/2024 10:25 AM CDT 85 mcg/kg/min 38. 505 mL/hr New Bag 07/14/2024 9:57 AM CDT 125 mcg/kg/min 56.625 mL /hr propofoL injection (Diprivan) intravenous, As needed, Starting on Sun07/14/24 at 0957, Anesthesia Intra-op Given 07/14/2024 9:57 AM CDT 200 mg rocuronium injection (Zemuron) intravenous, As needed, Starting on Sun07/14/24 at 0959, Anesthesia Intra-op Given 07/14/2024 9:59 AM CDT 50 mg sugammadex injection (Bridion) intravenous, As needed, Starting on Sun07/14/24 at 1056, Anesthesia Intra-op Given 07/14/2024 10:56 AM CDT 151 m g documented in this encounter Additional Health Concerns Assessment Noted Time PHQ-9 Depression Total Score: 19 019 9:11 AM CDT documented as of this encounter Care Teams Banking Teacher Relationship Specialty Start Date End Date Elsewhere, Pcp PCP - General Internal Medicine 06/03/23 documented as of this encounter
--- OUTSIDE RECORDS SUMMARY | 2024-08-13 11:58 | XMS_ITS | Clinical Summary ---
Author Organization [facility] Address [address] [place] [address] Care Team Providers Care Commercial Loan Processor Name Role Phone Elsewhere, Pcp Primary Care Provider Unavailabl e Source Comments Patient records contain information from all sites at [facility]. For routine questions regarding patient records, call [phone] during business hours, M-F 8:00 AM - 5:00 PM Central Time. Record requests for emergency care only can be directed to [phone] at any time.[facility] Allergies Active Allergy Reactions Criticality Noted Date [...] (09/25/2018): Overview: The 10-year ASCVD risk score (Freeholdmilagros COLE Jr, et al., 2013) is: 8.4% [...] Stents placed 09/14/2009. 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 Encounters Date Type Department Care Team Description 07/14/2024 2:00 PM CDT Nurse Only Division of Pain Medicine in [address] [phone] Merrill Norton M.D. Bentzin, Jenna A, RAnthonyNAnthony 07/14/2024 9:53 AM CDT Anesthesia Event Outpatient Procedure [facility] in [place], [place] [address] [place] [phone] Fawad Bassett APRN, PATRICIA, ELIAS 07/14/2024 9:36 AM CDT - 07/14/2024 11:25 AM CDT Surgery [facility] in [place], [place] [address] [place] [phone] Merrill Norton M.D. REMOVAL MEDTRONIC DORSAL COLUMN STIMULATOR. 07/14/2024 8:18 AM CDT - 07/14/2024 12:03 PM CDT Hospital Encounter Outpatient [facility] in [place], [place] [address] [place] [phone] Merrill Norton M.D. Discharge Disposition: Home or Self Care 06/19/2024 Clinical Communication Division of Pain Medicine in [place], [place] [address] [place] [phone] Sonya Bravo R.N. 05/31/2024 Refill Department of Urology in [place], [place] [address] [place] [phone] Nicolasa Brower P.A.-C., M.S. Med Refill 05/28/2024 4:00 PM CDT Procedure visit Division of Pain Medicine in [place], [place] [address] [place] [phone] Matt Franklin M.D. Hollister, Jennifer M, R.N. Neuropathy 05/28/2024 3:15 PM CDT Office Visit Division of Pain Medicine in [address] [phone] Domi Leone APRN, KELI, D.N.P. Migraine Headache (Primary Dx); Chronic Pain Syndrome from Last 3 Months Immunizations Name Administration Dates Next Due Influenza Split 09/17/2016 PPSV23 03/30/2016 Tdap 10/30/2012 Family History Medical History Relation Name Comments Prostate cancer Brother Riger Delia Dementia Mother Gogo Delia Osteoporosis Mother Gogo Delia Breast cancer Sister Malia SparrowNeil Ovarian cancer Sister Malia You Relation Name Status Comments Brother Riger Delia Mother Gogo Delia Sister Malia You Social History Tobacco Use Types Packs/Day Years [...] your living situation today? I have a [facility] place to live 06/08/2023 Sex and Gender Information Value Date Recorded Sex Assigned at Male 08/15/2018 7:50 AM PARKING LOT SIGNALER Legal Sex Male 1:19 AM PARKING LOT SIGNALER Gender Identity Male 08/15/2018 7:50 AM PARKING LOT SIGNALER Sexual Orientation Straight 08/15/2018 7: 50 AM PARKING LOT SIGNALER Last Filed Vital Signs Vital Sign Reading [...] 07/14/2024 8:38 AM CDT Plan of Treatment Health Maintenance Due Date Last Done Comments CT Colonography 1960 Cologuard 1960 Generalized Anxiety (MORELIA-7) 1960 Lung Cancer Screening 1960 Controlled Substance Agreement 02/21/2019 Controlled Substance Monitoring (PHQ-9) 02/21/2019 Controlled Substance Monitoring 02/21/2019 Opioid Risk Tool (ORT) 02/21/2019 PEG assessment for Opioid therapy 02/21/2019 Opioid Use Disorder (OUD) Screening 02/22/2020 RSV vaccine - (32-36 weeks) or 60+ years (1 - Risk 60-74 years 1-dose series) 2020 Depression Screening (Annual PHQ-2) 09/17/2023 COVID-19 Vaccine ( season) 2024 08/03/2023, 06/20/2022, 01/19/2022, Additional history exists Influenza Vaccine (#1) 2024 , 06/20/2022, 05/25/2021, Additional history exists Colonoscopy 12/30/2024 12/31/2019, 11/10/2011 Colorectal Cancer Surveillance 12/30/2024 Fasting Glucose for Diabetes Screening 02/18/2027 02/19/2024, 01/30/2024, 11/03/2022, Additional history exists Lipid (Cholesterol) Screening 01/30/2029 01/31/2024, 01/26/2023, 01/19/2022, Additional history exists DTaP,Tdap,and Td Vaccines (3 - Td or Tdap) 11/13/2032 11/13/2022, 10/30/2012 Zoster Vaccines Completed 02/21/2019, 04/2019, 11/13/2018 Pneumococcal vaccine (0-64 years) Completed 01/19/2022, 03/30/2016 IPV Vaccines Aged Out No longer eligi ble based on patient's age to complete this topic Medical Devices Implanted Type Area Set Up Worker Device Identifier Shelf Expiration Date Model / Serial / Lot Kit Lead Comp Spaced 45cm 3874-45 - [place] [id number] Implanted:Qty: 1 on 01/15/2013 Electrode Other/Legacy - See Implant Description Medtronic Description:Device Manufactu rer - Medtronic [employer] Inc. Body Location - ?. Not Applicable. Device Status Text - [id number]. Lead-Medtronic Octad 60cm 3778-60 - [place] [id number] Implanted:Qty: 1 on 02/19/2013 Electrode Right: Other/Legacy - See Implant Description Medtronic Description:Device Manufactu rer - Medtronic [employer]. Body Location - Right. Device Status Text - [id number]. Conversions - Default Historical Implant Device - [place] [id number] Implanted:01/2017 (Quantity not on file) Electrode Description:Device Status Te xt - [id number]. Conversions - Default Historical Implant Device - [place] [id number] Implanted:01/2017 (Quantity not on file) Electrode Description:Device Status Te xt - [id number]. neuro stimulator. Medtronic [place] Bi-Wing Injex 28311 - [place] [id number] Implanted:Qty: 1 on 02/19/2013 Spinal Cord Stimulator Other/Legacy - See Implant Description Medtronic Description:Device Manufactu rer - Medtronic [employer] Inc. Body Location - ?. Not Applicable. Device Status Text - [id number]. Medtronic-Gene rator Restore Ultra - [place] [id number] Implanted:Qty: 1 on 02/19/2013 Spinal Cord Stimulator Other/Legacy - See Implant Description Medtronic Description:Device Manufactu rer - Medtronic [employer] Inc. Body Location - ?. Not Applicable. Device Status Text - [id number]. Conversions - Default Historical Implant Device Implanted:01/2017 (Quantity not on file) Stent Other Description:Device Status Te xt - StentOthr. cerebral. Conversions - Default Historical Implant Device Implanted:01/2017 (Quantity not on file) Stimulator Other Description:Device Status Te xt - Neurostim. Stent Pipeline Embolization Device [place] - [place] [id number] Implanted:Qty: 4 on 09/14/2009 Vascular Stent Other/Legacy - See Implant Description Description:[facility] Device Status Text - [id number]. Explanted Type Area Set Up Worker Device Identifier Shelf Expiration Date Model / Serial / Lot Lead-Medtronic 3778-75 - [place] [id number] Implanted:Qty: 1 on 02/19/2013 Explanted:Qty: 1 on 07/14/2024 at [facility] Electrode Other/Legacy - See Implant Description Medtronic Description:Device Manufactu rer - Medtronic [employer] Inc. Body Location - ?. Not Applicable. Device Status Text - [id number]. Lead-Medtronic Octad 60cm 3778-60 - [place] [id number] Implanted:Qty: 1 on 02/19/2013 Explanted:Qty: 1 on 07/14/2024 at [facility] Electrode Right: Other/Legacy - See Implant Description Medtronic Description:Device Manufactu rer - Medtronic [employer] Inc. Body Location - Right. Device Status Text - [id number]. Pocket Sizer Medtronic 3550-69 - [place] [id number] Implanted:Qty: 1 on 02/19/2013 Explanted:Qty: 1 on 07/14/2024 at [facility] Stimulator Other Medtronic Description:Device Manufactu rer - Medtronic [employer] Inc. Device Status Text - [id number]. Procedures Procedure Name Priority Date/Time Associated Diagnosis [...] LIPID PANEL, S Routine 10/20/2016 11:16 AM PARKING LOT SIGNALER from Last 3 Months or Most Recently Relevant to Health Maintenance Results * FL Fluoro Less Than 1 Hour (07/14/2024 10:44 AM CDT) Narrative [id number] - 07/14/2024 10:45 AM CDT This exam does not require a radiologist review or interpretation. Please refer to the patient's medical record on this date for clinical details. Jennifer Corral M.D. IMG FLUOROSCOPY PROCEDURES Final Result [id number] NA * LDA ANE ENDOTRACHEAL AIRWAY (07/14/2024 [...] ETT location: oral VL device: glide scope Remus scope blade size: 4 Tube size: 7 [...] successful Notable Events: no complications Fawad Bassett APRN, CRNA, MNA ANESTHESIA ORDE RABPATRICIA Final Result * Basic Metabolic Panel (01/30/2024 [...] M.S. LAB BLOOD ADD-ON Fin al Result [facility] [address] [place] [address], [facility] [address] [place] [address] * Lipid Panel (10/20/2016 11:16 AM PARKING LOT SIGNALER) Cholesterol, HDL, S 47 >=40 MG/DL [facility] Calculated LDL 114 SeeComment MG/DL [facility] Comment: REFERENCE VALUE Desirable: <100 Above Desirable: 100-129 Borderline high: 130-159 High: 160-189 Very high: > or =190 Cholesterol, Non-HDL, Calculated 134 SeeComment MG/DL [facility] Comment: REFERENCE VALUE Desirable: <130 Above Desirable: 130-159 Borderline high: 160-189 High: 190-219 Very high: > or =220 Cholesterol, Total 181 SeeComment MG/DL [facility] Comment: REFERENCE VALUE Desirable: < 200 Borderline high: 200 - 239 High: > or = 240 Triglycerides 102 SeeComment MG/DL [facility] Comment: REFERENCE VALUE Normal: <150 Borderline high: 150-199 High: 200-499 Very high: > or =500 10/20/2016 11:1 6 AM PARKING LOT SIGNALER 10/20/2016 11:16 AM PARKING LOT SIGNALER us Tiara Huerta M.D. LAB BLOOD ADD-ON Final Resul t [facility] [address] [place] [address], [facility] from Last 3 Months or Most Recently Relevant to Health Maintenance Insurance [facility] Care Teams Commercial Loan Processor Relationship Specialty Start Date End Date Elsewhere, Pcp PCP - General Internal Medicine 06/03/23
[2024-08-13] MEDS: dexAMETHasone 10 MG/ML inj PO (11:59)
--- OUTSIDE RECORDS SUMMARY | 2024-08-13 11:59 | XMS_ITS | Encounter Summary ---
Author Organization [facility] Address [address] [place] [address] Care Team Providers Care Inbound Sales Consultant Name Role Phone Elsewhere, Pcp Primary Care Provider Unavailabl e Reason for Visit * Outpatient (Routine) - Closed Specialty Diagnoses / Procedures Referred By Contac t Referred To Contact Diagnoses Neuropathy Procedures PM Stimulator Reprogramming Matt Franklin M.D. [address] [place] [phone] Phone: tel: fax: [facility] Referral ID Status Reason Start Date Expiration Date Visits Re quested Visits Authorized [id number] Closed 05/05/2024 05/05/2025 1 1 Encounter Details Date Type Department Care Team ([facility] st Contact Info) Description 05/28/2024 4:00 PM CDT Procedure visit Division of Pain Medicine in [place], [place] [address] [place] [phone] Matt Franklin M.D. [address] [place] [address] [phone] Shelly Palencia, RAnthonyNAnthony Neuropathy Social History Tobacco Use Types Packs/Day Years Used Date Smoking Tobacco: Every Day Cigarettes 0.5 46.9 Started: 09/17/1977 Smokeless Tobacco: Never Alcohol Use Standard Drinks/Week Comments No 0 (1 standard drink = 0.6 oz pur e alcohol) Overall Financial Resource Strain (CARDIA) Femie r Date Recorded How hard is it [...] your living situation today? I have a [facility] place to live 06/08/2023 Sex and Gender Information Value Date Recorded Sex Assigned at Male 08/15/2018 7:50 AM FLASH RANGING CREWMEMBER Legal Sex Male 1:19 AM FLASH RANGING CREWMEMBER Gender Identity Male 08/15/2018 7:50 AM FLASH RANGING CREWMEMBER Sexual Orientation Straight 08/15/2018 7: 50 AM FLASH RANGING CREWMEMBER documented as of this encounter Progress Notes * Shelly Palencia R.N. - 05/28/2024 4:00 PM CDT CHIEF COMPLAINT/REASON FOR VISIT: I met with Inocencio Andrew today to provide education about explant of a Medtronic Spinal Cord Stimulator (SCS) for the ability to have an MRI. Leads are currently used as PNS leads and lose their MRI compatibility outside of the spinal column. PRIMARY IDENTIFIED PAIN AREA FOR NEUROMODULATION: right sided head pain PERTINENT SURGICAL HISTORY: MedtronicTrial Occipital (N/A, 01/15/2013); Medtronic Occipital nerve stimulator insertion (N/A, 02/19/2013); Anticoagulation: yes, Eliquis. Will reach out to gravure press operator regarding holding this for 5 days. Diabetes: no Patient was given Contact Card for Pain Clinic RN Coordinator, Chlorhexidine Soap, Reviewed and Provided a Printed copy of the Pain Clinic Pre-Procedure Instructions Neuromodulation which includes the following topics: Pain clinic RN coordinators contact instructions Home Medication instructions Pre-procedure antiseptic instructions Fasting instructions Post procedure activity restrictions Post procedure safety instructions (driving, etc) Checklist for Surgical Patients [id number], Surgical Site Infection: Reducing Your Risk [id number] Patient was scheduled 07/14 for explant. Sonya will contact the patient 1-2 weeks prior to review procedure instructions. Patient will contact us after his MRI if he is wanting to be re-implanted. VISIT OUTCOME: Learner(s): Inocencio Andrew Readiness to learn: Accepting Methods used for education: Explanation Learner(s) response: Patient/caregiver able to teach back If there are any ongoing questions or concerns Inocencio Andrew will call the Pain Clinic RN coordinators at [phone]. Reviewed with Dr. Norton Nursing time spend with Inocencio Andrew: 1 hour TOTAL TIME OF ORDERING OR SUPERVISING PROVIDERS DURING ENCOUNTER: 0 documented in this encounter Plan of Treatment Not on file documented as of this encounter Visit Diagnoses Diagnosis Neuropathy documented in this encounter Additional Health Concerns Assessment Noted Time PHQ-9 Depression Total Score: 19 12/17/ 019 9:11 AM CDT documented as of this encounter Care Teams Inbound Sales Consultant Relationship Specialty Start Date End Date Elsewhere, Pcp PCP - General Internal Medicine 06/03/23 documented as of this encounter
--- OUTSIDE RECORDS SUMMARY | 2024-08-13 11:59 | XMS_ITS | Encounter Summary ---
Author Organization [facility] Address [address] [place] [address] Care Team Providers Care Optical Model Maker And Tester Name Role Phone Elsewhere, Pcp Primary Care Provider Unavailabl e Reason for Visit * Reason Comments Med Refill Encounter Details Date Type Department Care Team (Late st Contact Info) Description 05/31/2024 Refill Department of Urology in [place], [place] [address] [place] [phone] Nicolasa Brower P.A.-C., M.S. [address] [place] [address] Med Refill Social History Tobacco Use Types Packs/Day Years [...] your living situation today? I have a [facility] place to live 06/08/2023 Sex and Gender Information Value Date Recorded Sex Assigned at Male 08/15/2018 7:50 AM VISUAL BASIC .NET DEVELOPER Legal Sex Male 1:19 AM VISUAL BASIC .NET DEVELOPER Gender Identity Male 08/15/2018 7:50 AM VISUAL BASIC .NET DEVELOPER Sexual Orientation Straight 08/15/2018 7: 50 AM VISUAL BASIC .NET DEVELOPER documented as of this encounter Plan of Treatment Not on file documented as of this encounter Visit Diagnoses Not on filedocumented in this encounter Additional Health Concerns Assessment Noted Time PHQ-9 Depression Total Score: 19 019 9:11 AM CDT documented as of this encounter Care Teams Optical Model Maker And Tester Relationship Specialty Start Date End Date Elsewhere, Pcp PCP - General Internal Medicine 06/03/23 documented as of this encounter
--- OUTSIDE RECORDS SUMMARY | 2024-08-13 11:59 | XMS_ITS | Encounter Summary ---
Author Organization [facility] Address [address] [place] [address] Care Team Providers Care Commercial Finance Manager Name Role Phone Tejal Gonsalves CAT COTTON BUYER Unavailable [phone] Eleni Bell Unavailable Tiffany Mae DO Primary Care Provider [phone] Paola Read MD Unavailable [phone] Paola Read MD Unavailable [phone] Erica Awan [facility] Unavailable [phone] Erica Awan [facility] Unavailable [phone] Reason for Referral * Diagnostic Imaging MRI (Routine) - Authorized Specialty Diagnoses / Procedures Referred By Contflory t Referred To Contact Radiology. Diagnoses Facial pain Hx of aneurysm Aneurysm of carotid artery (H) Procedures MRA Neck (Carotids) wo & w Contrast Paola Read MD [address] [place] [address] Phone: tel: fax: [facility] [address] [facility] [address] [place] [address] Phone: tel: fax: Referral ID Status Reason Start Date Expiration Date V isits Requested Visits Authorized [id number] Authorized 07/29/2024 07/29/2025 1 1 ERY KNITTER * Diagnostic Imaging MRI (Routine) - Authorized Specialty Diagnoses / Procedures Referred By Priya pruitt Referred To Contact Radiology. Diagnoses Facial pain Hx of aneurysm Other symptoms and signs involving the nervous system Procedures MRA Head w/o Contrast Angiogram Paola Read MD [address] [place] [address] Phone: tel: fax: [facility] [address] [facility] [address] [place] [address] Phone: tel: fax: Referral ID Status Reason Start Date Expiration Date V isits Requested Visits Authorized [id number] Authorized 07/29/2024 07/29/2025 1 1 ERY KNITTER * Diagnostic Imaging MRI (Routine) - Authorized Specialty Diagnoses / Procedures Referred By Priya pruitt Referred To Contact Radiology. Diagnoses Facial pain Hx of aneurysm Procedures MR Brain w/o & w Contrast Paola Read MD [address] [place] [address] Phone: tel: fax: [facility] [address] [facility] [address] [place] [address] Phone: tel: fax: Referral ID Status Reason Start Date Expiration Date V isits Requested Visits Authorized [id number] Authorized 07/29/2024 07/29/2025 1 1 ERY KNITTER Encounter Details Date Type Department Care Team (Late st Contact Info) Description 07/29/2024 Orders Only [facility] Neurology Clinics - [address], [address] [place] [address] Paola Read MD [address] [place] [address] Facial pain (Primary Dx); Hx of aneurysm; Other symptoms and signs involving the nervous system; Aneurysm of carotid artery (H) Social History Tobacco Use Types Packs/Day Years Used Date Smoking Tobacco: Every Day Smokeless Tobacco: Never Alcohol Use Standard Drinks/Week Comments No 0 (1 standard drink = 0.6 oz pur e alcohol) PHQ-2 Answer Date Recorded PHQ-2 Score 0 06/27/2024 Adolescent Education Answer Date Record ed Getting School Help Needed Not on file 06/13 Sex and Gender Information Value Date Recorded Sex Assigned at Not on file Legal Sex Male 3:26 AM HOSIERY KNITTER Gender Identity Not on file Sexual Orientation Not on file documented as of this encounter Plan of Treatment Upcoming Encounters Date Type Department Care Team (Late st Contact Info) Description 08/16/2024 2:15 PM HOSIERY KNITTER Appointment [facility] [address] [facility] [address] [place] [address] Paola Read MD [address] [place] [address] Scheduled Orders Name Type Priority Associated Diagnoses Orde r Schedule MR Brain w/o & w Contrast Imaging Routine Facial pain Hx of aneurysm Expected: 07/29/2024 (Approximate), Expires: 07/29/2025 MRA Head w/o Contrast Angiogram Imaging Routine Facial pain Hx of aneurysm Other symptoms and signs involving the nervous system Expected: 07/29/2024 (Approximate), Expires: 07/29/2025 MRA Neck (Carotids) wo & w Contrast Imaging Routine Facial pain Hx of aneurysm Aneurysm of carotid artery (H) Expected: 07/29/2024 (Approximate), Expires: 07/29/2025 documented as of this encounter Visit Diagnoses Diagnosis Facial pain- Primary Headache Hx of aneurysm Personal history of other diseases of circulatory system Other symptoms and signs involving the nervous system 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 documented in this encounter Care Teams Commercial Finance Manager Relationship Specialty [place] [address] [place] [address] PCP - General 05/28/23 Tejal Gonsalves APRN COTTON BUYER [address] [facility] [place] [address] Nurse Practitioner Neurological Surgery 03/27/23 Eleni Bell [address] [place] [address] Internal Medicine 03/27/23 Paola Read MD [address] [place] [address] Physician Neurology 06/13/23 Paola Read MD [address] [place] [address] Assigned Neuroscience Provider 11/30/23 Erica Awan [facility] [address] [place] [address] Pharmacist Pharmacist 03/18/24 Erica Awan [facility] [address] [place] [address] Assigned MTM Pharmacist 04/08/24 documented as of this encounter
--- OUTSIDE RECORDS SUMMARY | 2024-08-13 11:59 | XMS_ITS | Encounter Summary ---
Author Organization [facility] Address [address] [place] [address] Care Team Providers Care Associate Manager Name Role Phone Tejal Gonsalves CAT TOOLROOM MACHINIST Unavailable + [phone] TejinderEleni grace Unavailable Tiffany Mae DO Primary Care Provider [phone] Paola Read MD Unavailable [phone] Paola Read MD Unavailable [phone] Erica Awan [facility] Unavailable [phone] Erica Awan [facility] Unavailable [phone]- [phone] Encounter Details Date Type Department Care Team (Late st Contact Info) Description 07/28/2024 [facility] [address] [address] Paola Read MD [address] [place] [phone] Social History Tobacco Use Types Packs/Day Years [...] on file Legal Sex Male 3:26 AM MULTI SLIDE MACHINE TENDER Gender Identity Not on file Sexual Orientation Not on file documented as of this encounter Miscellaneous Notes * Telephone Encounter - Paola Read MD - 07/29/2024 8:19 AM MULTI SLIDE MACHINE TENDER I have placed the orders I SLIDE MACHINE TENDER documented in this encounter Plan of Treatment Upcoming Encounters Date Type Department Care Team (Late st Contact Info) Description 08/16/2024 2:15 PM MULTI SLIDE MACHINE TENDER Appointment [facility] [address] [facility] [address] [place] [address] Paola Read MD [address] [place], [place] [phone] documented as of this encounter Visit Diagnoses Not on filedocumented in this encounter Care Teams Associate Manager Relationship Specialty [place] [address] [place] [address] PCP - General 05/28/23 Tejal Gonsalves APRN CNP [address] [id number] [place] [address] Nurse Practitioner Neurological Surgery 03/27/23 Eleni Bell [address] [place] [address] Internal Medicine 03/27/23 Paola Read MD [address] [place], [place] [phone] Physician Neurology 06/13/23 Paola Read MD [address] [place], [place] [phone] Assigned Neuroscience Provider 11/30/23 Erica Awan RP [address] [place] [address] Pharmacist Pharmacist 03/18/24 Erica Awan RP [address] [place] [address] Assigned MTM Pharmacist 04/08/24 documented as of this encounter
--- OUTSIDE RECORDS SUMMARY | 2024-08-13 11:59 | XMS_ITS | Encounter Summary ---
Author Organization [facility] Address [address] [place] [address] Care Team Providers Care Nutrition Technician Name Role Phone Elsewhere, Pcp Primary Care Provider Unavailabl e Reason for Visit * Outpatient (Routine) - Closed Specialty Diagnoses / Procedures Referred By Priya t Referred To Contact Pain Medicine Matt Franklin M.D. [address] [place] [phone] Phone: tel: fax: [facility] Referral ID Status Reason Start Date Expiration Date Visits Re quested Visits Authorized [id number] Closed 05/05/2024 11/04/2025 1 1 Encounter Details Date Type Department Care Team (Late st Contact Info) Description 05/28/2024 3:15 PM CDT Office Visit Division of Pain Medicine in [place], [place] [address] [place] [phone] Domi Leone, CAT, MANAGER UNIT, D.N.P. [address] [place] [phone] Migraine Headache (Primary Dx); Chronic Pain Syndrome Social History Tobacco Use Types Packs/Day Years [...] your living situation today? I have a [facility] place to live 06/08/2023 Sex and Gender Information Value Date Recorded Sex Assigned at Male 08/15/2018 7:50 AM PARTNER CCO Legal Sex Male 1:19 AM PARTNER CCO Gender Identity Male 08/15/2018 7:50 AM PARTNER CCO Sexual Orientation Straight 08/15/2018 7: 50 AM PARTNER CCO documented as of this encounter Last Filed Vital Signs Vital Sign Reading Time Taken Comments Blood Pressure 114/66 05/28/2024 2:34 PM CDT Pulse 71 05/28/2024 2:34 PM CDT Temperature - - Respiratory Rate - - Oxygen Saturation - - Inhaled Oxygen Concentration - - Weight - - Height - - Body Mass Index - - documented in this encounter Progress Notes * Domi Leone APRN, MANAGER UNIT, D.N.P. - 05/28/2024 3:15 PM CDT Images from the original note were not included. SUBJECTIVE CHIEF COMPLAINT / REASON FOR VISIT Inocencio Andrew presents today in follow-up of 1. Migraine Headache 2. Chronic Pain Syndrome HISTORY OF PRESENT ILLNESS Inocencio Andrew is a 63 y.o. male whom has been followed by Dr. Norton in the Pain Clinic for the aforementioned chief complaint. Patient has a complex medical/surgical history that is denoted subsequently in this note but notable for occipital neuralgia, trigeminal neuralgia, and migraines s/p occipital and supraorbital nerve lead stimulators by Dr. Norton in 2012. He is followed by a Neurologist and Pain Clinic in the [facility]. There was request to update brain imaging and cervical imaging via MRI scans in which he is not a candidate for being he has a stimulator in place. Note,Medtronic stimulators are not MRI compatible when implanted outside of the spine. Patient was last seen by Dr. Norton on 11/07/18. I would refer the interested reader to this note for full details of the evaluation. Patient recently sent a portal message regarding end of life of his battery and option regarding revision versus explantation in an effort to obtain MRIs. Patient presents to the clinic today to discuss options for occipital and supraorbital nerve stimulator revision vs explantation. The patient reports pain is similar to that for the last 15 years. He reports trigeminal with the occipital nerve pain that is present constantly. He does get Botox injections every 9 weeks with somelimited improvement of those symptoms. He also has daily migraines associated with nausea, light sensitivity, right supraorbital burning sensation. Pain is alleviated with rest in a quiet dark room. He finds tizanidine to be helpful for his medication regimen. Patient reports his stimulator has been ??? for the last 20 months?? . When the battery was functioning he was having variable response in effectiveness saying he felt it would work after a reprogramming visit and then after some timewould not work any longer. Overall he feels the stimulator provided him approximately 50% relief ofhis symptoms. Medication management include: Pain Medications fentaNYL (DURAGESIC) 50 mcg/hr patch Place 1 patch on the skin every other day. HYDROmorphone (DILAUDID) 4 mg tablet Take 1 tablet by mouth every 4 hours if needed for pain. Use date 11/03/18-12/02/18 LYRICA 150 mg capsule Take 150 mg by mouth 2 (two) times a day. tiZANidine (ZANAFLEX) 4 mg tablet Take 1 tablet by mouth as needed. muslce relaxant venlafaxine (EFFEXOR) 25 mg tablet Take 1 tablet by mouth every morning. Current Outpatient Medications Medication Instructions Aimovig Autoinjector 70 mg, subcutaneous, Every 30 days atorvastatin (LIPITOR) 40 mg, oral, Daily cholecalciferol (Vitamin D3) 10 mcg (400 Unit) tablet diazePAM (VALIUM) 5 mg tablet 1 tablet, oral, As needed, anxiety docusate calcium (Surfak) 240 mg capsule Eliquis 5 mg tablet 1 tablet, oral, 2 times daily fentaNYL (DURAGESIC) 50 mcg/hr patch 1 patch, transdermal, Every 48 hours fluticasone (FLONASE) 50 mcg/actuation nasal spray 1 spray, nasal, Daily, one sprays per nostril daily as needed HYDROmorphone (DILAUDID) 4 mg tablet Take 1 tablet by mouth every 4 hours if needed for pain. Use date 11/03/18-12/02/18 lactulose 1.5 g, oral Lyrica 150 mg, oral, 2 times daily meclizine (ANTIVERT) 25 mg tablet 1 tablet, oral, 3 times daily PRN, for motion sickness melatonin 1 mg tablet metoprolol succinate (TOPROL XL) 25 mg, oral, Daily MULTIVITAMIN ORAL 1 tablet, oral, Daily naloxegol (MOVANTIK) 25 mg tablet 1 tablet, oral, As needed naloxone (Narcan) 4 mg/actuation nasal spray naloxone (NARCAN) 4 mg, nasal, Daily PRN nicotine polacrilex (Nicorette) 2 mg gum ondansetron (ZOFRAN) 4 mg tablet 1 tablet, oral, Every 8 hours PRN, Nausea prochlorperazine (COMPAZINE) 10 mg tablet 1 tablet, oral, Every 6 hours PRN, Nausea/vomiting tadalafiL (CIALIS) 20 mg, oral, As needed tamsulosin (FLOMAX) 0.4 mg, oral, Daily tiZANidine (ZANAFLEX) 4 mg tablet 1 tablet, oral, As needed, muslce relaxant venlafaxine (EFFEXOR) 25 mg tablet 1 tablet, oral, Every morning zolpidem (AMBIEN) 10 mg tablet 1 tablet, oral, Bedtime PRN, sleep MEDICAL/SURGICAL HISTORY Past Surgical History: Procedure Laterality Date ANGIOGRAM N/A >One-vessel diagnostic angiography; Status post pipeline embolization of fusiform internal carotid artery aneurysm. CAROTID ARTERY ANGIOPLASTY 09/14/2009 Anuerysm EMBOLIZATION ANEURYSM WITH STENT N/A 09/14/2009 >Stenting of fusiform ICA aneurysm with multiple pipeline stents. OCCIPITAL NERVE STIMULATOR INSERTION N/A 02/19/2013 >Right supraorbital and occipital nerve stimulator placement. MEDTRONIC TRIAL OCCIPITAL N/A 01/15/2013 >Right occipital nerve stimulator trial. 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 Concussion Loss Of Consciousness Unspecified Duration Initial 09/17/1971 Depressive Disorder 09/17/1990 Gastroesophageal Reflux Disease NOS 09/17/2000 Headache Unspecified 08/17/2008 Hyperlipidemia 09/17/19 Migraine Headache 08/17/2008 Osteoporosis 09/17/2012 Polyp Colon 09/17/1994 Tuberculosis Pulmonary 09/17/83 Social History Tobacco Use Smoking status: Every Day Current packs/day: 0.50 Average packs/day: 0.5 packs/day for 46.7 years (23.3 ttl pk-yrs) Types: Cigarettes Start date: 09/17/1977 Smokeless tobacco: Never Vaping Use Vaping status: never used Substance Use Topics Alcohol use: No Drug use: No Inocencio Andrew denies recent fevers, chills, infections or antibiotics. No allergies to local anesthetic, corticosteroid, or contrast dye. No recent bowel or bladder changes. No unintentional weight loss or weight gain. Anticoagulation therapy: Patient is on Eliquis. Per the Interventional Spine Procedure guidelines, nerve stimulator explantation is considered a high risk and this medication DOES need to be held prior x3 days to the procedure with the procedure being on day 4. Patient can restart 24 hours following for an approximate holding time of 5 days. Pain score today: 6/10. ALLERGIES Amoxicillin-pot clavulanate, Clavulanic acid, Oxcarbazepine, Sulfa (sulfonamide antibiotics), Sulfamethoxazole-trimethoprim, Topiramate, and Trimethoprim REVIEW OF SYSTEMS All systems reviewed and found to be negative/normal except as mentioned above, per HPI. OBJECTIVE REVIEW OF SYSTEMS: Inocencio Andrew's history was reviewed including allergies, current medications, and problem list. PHYSICAL EXAM GENERAL: Pleasant, 63 y.o. male, in no acute distress. HEAD: Normocephalic and atraumatic. EYES: Pupils 3-4 mm. LUNGS: Unlabored respirations. SKIN: Absent of erythema, lesions, rashes, or infections. GAIT: Non-antalgic. MUSCULOSKELETAL/NEURO/SPINE: Range of motion, strength, and sensation grossly intact bilateral upper and lower extremities. MENTAL: Alert, oriented, appropriate mood and affect, recent and remote memory intact. ASSESSMENT / PLAN #1 Migraine Headache #2 Chronic Pain Syndrome MEDICAL DECISION MAKING Presented the options to the patient: 1) Medtronic battery revision surgery 2) Explantation of device so he can obtain MRIs without plans to reimplant 3) Explantation of device so he can obtain MRIs and patient can contact the Pain Clinic when wanting reimplanted. At this time Dr. Norton is not doing implantation so he likely would get referred to Dr. Pisano in Neurosurgery. Patient is aware insurance may not cover the reimplant. Also if patient was interested in reimplant, potentially there could be a clinical trial that he could partake with Dr. Castro that could be explored. Ultimately patient has chosen option #3 in which he will have his occipital and supraorbital nerve stimulator explanted with Dr. Norton so he can have his MRIs done. When and if he was interested in having reimplantation he will contact the Pain Clinic. Anticoagulation therapy: Patient is on Eliquis. Per the Interventional Spine Procedure guidelines, nerve stimulator explantation is considered a high risk and this medication DOES need to be held prior x3 days to the procedure with the procedure being on day 4. Patient can restart 24 hours following for an approximate holding time of 5 days. If his attractions associate does not give clearance for holdingEliquis for this long, will discuss with Dr. Norton potential options. Patient was scheduled to have RN education following my visit today with Shelly Palencia. FOLLOW-UP Patient will follow up with the Pain Clinic via phone or portal in the interim as needed. Total time: 30 minutes with face to face with patient and non-face to face including chart prep andreview. PATIENT EDUCATION Ready to learn, no apparent learning barriers were identified; learning preferences included listening. Explained diagnosis and treatment plan; patient expressed understanding of the content. The risk of exposure to COVID-19 within the facility was discussed. All questions pertaining to this situation were answered, and the patient agreed to proceed. PRO Scores: 05/23/2024 10:22 AM 05/23/2024 10:23 AM 05/23/2024 10:24 AM [facility] PROMIS-CAT: Depression 52 (within normal limits) PROMIS-CAT: Fatigue 66 (moderate) PROMIS-CAT: Sleep disturbance 71 (severe) PROMIS-CAT: Pain interference 67 (moderate) PROMIS-CAT: Ability to participate social roles 35 (moderate dysfunction) PROMIS-CAT: Physical function 36 (moderate dysfunction) Blood pressure 114/66, pulse 71. There is no height or weight on file to calculate BMI. * Merrill Norton M.D. - 05/28/2024 3:15 PM CDT This is a supervisory note, supervising Domi Leone APRN, C.N.P., D.N.P. HISTORY OF PRESENT ILLNESS I interviewed the patient and examined the patient with my colleague, Domi Leone. Please refer to her notes for the details. The patient was also seen by my nursing staff for presurgical preparation. I have been following Mr. Andrew for many years for his chronic headaches, and this is in the setting of multiple other significant medical comorbidities and chronic pain problems. He also continuesto be followed in the [facility] both by a neurologist and [facility]. Approximately 10 years ago, I placed a right occipital and supraorbital nerve stimulator for his right-sided head and face pain. Overall, he had some improvement with that treatment, but has continued to require otherheadache therapies and Botox injections as well. He has known that his generator has been at end oflife for over a year. Now, his treating physicians up in the [facility] would like to get MRIs of his head and neck, and his occipital nerve stimulator is not MRI compatible. Given that it is at [facility], he is here to discuss explantation. OBJECTIVE I reviewed his imaging and examined him. He has an occipital and a right supraorbital Octapolar leads that have been tunneled subcutaneously behind his right ear, down the superficial tissues of the neck, and into a right subclavicular generator site. There are two anchor sites in the lateral neck m idcervical. ASSESSMENT / PLAN #1 Chronic headaches #2 Chronic pain #3 Multiple comorbidities #4 Over 10 years status post implantation of right supraorbital and occipital nerve stimulators #5 Chronic anticoagulation therapy with apixaban DISCUSSION: We had a nice discussion. Patient would like to have his generator explanted, and I think this is reasonable. We went over risks, benefits and alternatives. Ideally, he should stop his apixaban 3 days prior to the procedure and then could restart it 1-2 days following. He will meet with my nursing staff to set up a date. Once he gets all of his MRIs postprocedure, then he can decide if he wishes to reinitiate/reimplant a stimulator, in which case we can discuss options which would include potentially meeting with one of my head and neck pain specialists versus our neuromodulation neurosurgeon. documented in this encounter Plan of Treatment Not on file documented as of this encounter Visit Diagnoses Diagnosis Migraine Headache- Primary Chronic Pain Syndrome documented in this encounter Additional Health Concerns Assessment Noted Time PHQ-9 Depression Total Score: 19 019 9:11 AM CDT documented as of this encounter Care Teams Nutrition Technician Relationship Specialty Start Date End Date Elsewhere, Pcp PCP - General Internal Medicine 06/03/23 documented as of this encounter
--- OUTSIDE RECORDS SUMMARY | 2024-08-13 11:59 | XMS_ITS | Encounter Summary ---
Author Organization [facility] Address [address] [place] [address] Care Team Providers Care Water Taxi Operator Name Role Phone Elsewhere, Pcp Primary Care Provider Unavailabl e Reason for Referral * Outpatient (Routine) - Closed Specialty Diagnoses / Procedures Referred By Contflory t Referred To Contact Pain Medicine Merrill Norton M.D. [address] [place] [address] Phone: tel: fax: [facility] Referral ID Status Reason Start Date Expiration Date Visits Re quested Visits Authorized [id number] Closed 06/19/2024 12/19/2025 1 1 Scheduling Instructions Off the floor, please hide the appointment from the patient, I will plan to go see him following his spinal cord stimulator explant, this is to be on Sonya Bravo's calendar, Ok to override if covering care teams Encounter Details Date Type Department Care Team (Late st Contact Info) Description 06/19/2024 Clinical Communication Division of Pain Medicine in [place], [place] [address] [place] [phone] Sonya Bravo RAnthonyNAnthony Social History Tobacco Use Types Packs/Day Years [...] your living situation today? I have a [facility] place to live 06/08/2023 Sex and Gender Information Value Date Recorded Sex Assigned at Male 08/15/2018 7:50 AM FRONTLOAD DRIVER Legal Sex Male 1:19 AM FRONTLOAD DRIVER Gender Identity Male 08/15/2018 7:50 AM FRONTLOAD DRIVER Sexual Orientation Straight 08/15/2018 7: 50 AM FRONTLOAD DRIVER documented as of this encounter Plan of Treatment Scheduled Referrals Name Type Priority Associated Diagnoses Orde r Schedule Pain Medicine nurse visit (clinic) Outpatient Referral Routine Expected: 07/14/2024, Expires: 09/19/2025 documented as of this encounter Visit Diagnoses Not on filedocumented in this encounter Additional Health Concerns Assessment Noted Time PHQ-9 Depression Total Score: 19 12/17/ 019 9:11 AM CDT documented as of this encounter Care Teams Water Taxi Operator Relationship Specialty Start Date End Date Elsewhere, Pcp PCP - General Internal Medicine 06/03/23 documented as of this encounter
--- OUTSIDE RECORDS SUMMARY | 2024-08-13 11:59 | XMS_ITS | Encounter Summary ---
Author Organization [facility] Address [address] [place] [address] Care Team Providers Care Pipe Installer Name Role Phone Elsewhere, Pcp Primary Care Provider Unavailabl e Reason for Referral * Outpatient (Routine) - Closed Specialty Diagnoses / Procedures Referred By Contac t Referred To Contact Diagnoses Neuropathy Procedures PM Stimulator Reprogramming Bro Franklin M.D. [address] [place] [phone] Phone: tel: fax: [facility] Referral ID Status Reason Start Date Expiration Date Visits Re quested Visits Authorized [id number] Closed 05/05/2024 05/05/2025 1 1 * Outpatient (Routine) - Closed Specialty Diagnoses / Procedures Referred By Contac t Referred To Contact Pain Medicine Bro Franklin M.D. [address] [place] [phone] Phone: tel: fax: [facility] Referral ID Status Reason Start Date Expiration Date Visits Re quested Visits Authorized [id number] Closed 05/05/2024 11/04/2025 1 1 Scheduling Instructions Schedule on a day that Dr. Norton is staffing. Encounter Details Date Type Department Care Team (Late st Contact Info) Description 04/29/2024 Clinical Communication Division of Pain Medicine in [place], [place] [address] [place] [phone] Merrill Norton M.D. [address] [place] [address] Social History Tobacco Use Types Packs/Day Years [...] your living situation today? I have a [facility] place to live 06/08/2023 Sex and Gender Information Value Date Recorded Sex Assigned at Male 08/15/2018 7:50 AM RUBBER PRESS OPERATOR Legal Sex Male 1:19 AM RUBBER PRESS OPERATOR Gender Identity Male 08/15/2018 7:50 AM RUBBER PRESS OPERATOR Sexual Orientation Straight 08/15/2018 7: 50 AM RUBBER PRESS OPERATOR documented as of this encounter Miscellaneous Notes * Addendum Note - Bro Franklin M.D. - 05/05/2024 9:35 AM CDTAddended by: BRO FRANKLIN on: 05/05/2024 09:35 AM Modules accepted: Orders * Addendum Note - Melanie Rendon RCody - 05/05/2024 8:57 AM CDTAddended by: MELANIE RENDON on: 05/05/2024 08:57 AM Modules accepted: Orders documented in this encounter Plan of Treatment Scheduled Orders Name Type Priority Associated Diagnoses Orde r Schedule PM Stimulator Reprogramming Procedures Routine Neuropathy Expected: 05/05/2024, Expires: 08/05/2025 Scheduled Referrals Name Type Priority Associated Diagnoses Orde r Schedule Pain Medicine office visit (clinic) Outpatient Referral Routine Expected: 05/05/2024, Expires: 08/05/2025 documented as of this encounter Visit Diagnoses Diagnosis Neuropathy- Primary documented in this encounter Additional Health Concerns Assessment Noted Time PHQ-9 Depression Total Score: 019 9:11 AM CDT documented as of this encounter Care Teams Pipe Installer Relationship Specialty Start Date End Date Elsewhere, Pcp PCP - General Internal Medicine 06/03/23 documented as of this encounter
--- OUTSIDE RECORDS SUMMARY | 2024-08-13 11:59 | XMS_ITS | Encounter Summary ---
Author Organization [facility] Address [address] [place] [address] Care Team Providers Care Head Of Transport Logistics Name Role Phone Tejal Gonsalves CAT SAP TREASURY CONSULTANT Unavailable +- [phone] Ray [place] Unavailable Tiffany Mae DO Primary Care Provider [phone] Paola Read MD Unavailable [phone] Paola Read MD Unavailable [phone] Erica Awan [facility] Unavailable [phone]- [phone] Erica Awan [facility] Unavailable [phone]- [phone] Encounter Details Date Type Department Care Team (Late st Contact Info) Description 12/26/2023 [facility] Medical Advice [facility] [address] [place] [address] Alanis Narayanan Social History Tobacco Use Types Packs/Day Years Used Date Smoking Tobacco: Every Day Smokeless Tobacco: Never Alcohol Use Standard Drinks/Week Comments No 0 (1 standard drink = 0.6 oz pur e alcohol) PHQ-2 Answer Date Recorded PHQ-2 Score 2 11/16/2023 Adolescent Education Answer Date Record ed Getting School Help Needed Not on file 06/13 Sex and Gender Information Value Date Recorded Sex Assigned at Not on file Legal Sex Male 3:26 AM ENGRAVING SUPERVISOR Gender Identity Not on file Sexual Orientation Not on file documented as of this encounter Plan of Treatment Upcoming Encounters Date Type Department Care Team (Late st Contact Info) Description 08/16/2024 2:15 PM ENGRAVING SUPERVISOR Appointment [facility] [id number] [facility] [address] [place] [phone] Paola Read MD [address] [place] [address] documented as of this encounter Visit Diagnoses Not on filedocumented in this encounter Care Teams Head Of Transport Logistics Relationship Specialty [place] [address] [place] [address] PCP - General 05/28/23 Tejal Gonsalves APRN SAP TREASURY CONSULTANT [address] [facility], [place] [phone] Nurse Practitioner Neurological Surgery 03/27/23 Eleni Bell [address] [place] [address] Internal Medicine 03/27/23 Paola Read MD [address] [place] [address] Physician Neurology 06/13/23 Paola Read MD [address] [place] [address] Assigned Neuroscience Provider 11/30/23 Erica Awan [facility] [address] [place] [address] Pharmacist Pharmacist 03/18/24 Erica Awan [facility] [address] [place] [address] Assigned MTM Pharmacist 04/08/24 documented as of this encounter
--- OUTSIDE RECORDS SUMMARY | 2024-08-13 11:59 | XMS_ITS | Clinical Summary ---
Author Organization [id number] Address [place], [place] [address] Care Team Providers Care Assignment Desk Editor Name Role Phone Tino Paez MD Unavailable [phone] Tiffnay Mae DO Primary Care Provider Nicole Garcia NP Unavailable Mani Mullen MD Unavailable [phone] Eleni Bell MD Unavailable Allergies Active Allergy Reactions Criticality Noted Date Comments Amoxicillin Nausea Only 01/01/2023 Amoxicillin-Pot Clavulanate Nausea Only 05/01/2017 Unable to tolerate nausea and ineffective for sinus infections. Sulfamethoxazole-Trimetho prim Diarrhea 04/22/2009 Clavulanic Acid GI Upset,Nausea Only 01/01/2023 Oxcarbazepine Rash High 09/27/2012 Jose D ruiz Sulfa (Sulfonamide Antibiotics) Diarrhea,Nausea Only 01/01/2023 Sulfamethoxazole Diarrhea 01/01/2023 Topiramate Other - Describe In Comment Field,Rash High 09/27/2012 Jose D ruiz Trimethoprim Diarrhea,GI Upset 01/01/2023 Medications Medication Sig Dispensed Refills Start Date End Date Status docusate (STOOL SOFTENER) 100 mg capsule Take 1 capsule by mouth 2 times daily if needed for Constipation. prn 0 2 Active fluticasone (50 mcg per actuation) nasal solution (FLONASE) Inhale 1 [place] into both nostrils once daily if needed for Rhinitis. Active MELATONIN ORAL Take 1 tablet by mouth at bedtime if needed (sleep, on nights when he does not take Ambien). Active cholecalciferol (VITAMIN D-3) 2,000 unit capsule Take 1 capsule by mouth once daily. 0 0 Active prochlorperazine (COMPAZINE) 10 mg tabletIndications:P eripheral polyneuropathy,Vert igo,Radicular pain of both lower extremities,Cervico -occipital neuralgia of the right side,Occipital headache,Trigeminal nerve disorder,Brain aneurysm,Recurrent occipital headache,Intractabl e migraine with aura with status migrainosus,Migrain e aura, persistent, intractable,Migrain e with aura and with status migrainosus, not intractable Take 1 Tablet (10 mg) by mouth every 8 hours if needed for Nausea/Vomiting. 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 Do not chew more than 1 gum per hour. 240 Each 3 3 Active lactulose 10 gram/15 mL solution Take 1.5 g by mouth once daily. 4 Active naloxone (Narcan) 4 mg/actuation nasal sprayIndications:Ch ronic, continuous use of opioids Inhale 1 [place] (4 mg) into affected nostril(s) one time if needed for Patient Diff To Arouse or Resp Rate < 8 / min. additional doses of NARCAN Nasal [place] may be given every 2 to 3 minutes until emergency medical assistance arrives 1 Each 1 4 Active venlafaxine (EFFEXOR) 25 mg tabletIndications:C ervico-occipital neuralgia of the right side,Trigeminal nerve disorder Take 1 Tablet (25 mg) by mouth once daily in the morning. 90 Tablet 3 4 Active linaCLOtide (Linzess) 290 mcg cap capsuleIndications: Constipation, unspecified constipation type Take 1 Capsule (290 mcg) by mouth once daily. 30 Capsule 11 4 Active HYDROmorphone (DILAUDID) 2 mg tabletIndications:C ervico-occipital neuralgia of the right side,Trigeminal nerve disorder,Degenerati ve disc disease, cervical,Chronic, continuous use of opioids TAKE ONE TABLET BY MOUTH THREE TIMES DAILY NEEDED FOR CHRONIC PAIN. USE DATES: 07/30/24-08/28/24 90 Tablet 4 Active fentaNYL (DURAGESIC) 37.5 mcg/hour transdermal patchIndications:De generative disc disease, cervical One to chest wall q 48 hours 15 Patch 4 Active Ubrelvy 100 mg tab tablet Take 100 mg by mouth one time if needed for Headache. TAKE 1 TABLET (100 MG) BY MOUTH AT ONSET OF HEADACHE. MAY REPEAT DOSE IN 2 HOURS IF NEEDED. MAX DOSE 200MG IN 24 HOURS Active apixaban (ELIQUIS) 5 mg tablet Take by mouth. 3 Active atorvastatin (LIPITOR) 40 mg tablet Take by mouth. 3 Active fentaNYL (DURAGESIC) 37.5 mcg/hour transdermal patch Apply topically to affected area(s). 3 Active pregabalin (LYRICA) 150 mg capsule Take by mouth. 3 Active tiZANidine (ZANAFLEX) 4 mg tablet Take by mouth. 3 Active zolpidem (AMBIEN) 10 mg tablet Take by mouth. 3 Active chlorhexidine (PERIDEX) 0.12 % solution Rinse with 15milliliters (1 capful) by mouth for 30 seconds in the morning and evening after toothbrushing. Spit after rinsing, do not swallow.* 4 Active docusate calcium 240 mg capsule Active ibuprofen (ADVIL; MOTRIN) 600 mg tablet Active memantine (NAMENDA) 5 mg tablet Take by mouth. 4 10/02/19 25 Active metoprolol succinate (TOPROL XL) 25 mg Sustained-Release tablet Take 25 mg by mouth. 4 Active naloxegoL (MOVANTIK) 25 mg tablet Take 25 mg by mouth. Active ondansetron (ZOFRAN ODT) 4 mg disintegrating tablet Active polyethylene glycol (MIRALAX; GLYCOLAX) 17 g per packet packet Mix 4 Packets in liquid then take by mouth. 3 Active pravastatin (PRAVACHOL) 20 mg tablet Take by mouth once daily. Active prochlorperazine (Compazine) 25 mg suppository Insert 1 Suppository rectally two times daily. Active tadalafiL (Cialis) 2.5 mg tablet Active bisacodyL (DULCOLAX) 5 mg delayed release tablet Take 5 mg by mouth. Active diazePAM (Valium) 5 mg tablet Take by mouth. Active fluticasone (50 mcg per actuation) nasal solution (FLONASE) Inhale 1 [place] into affected nostril(s). Active naloxone (NARCAN) 4 mg/actuation nasal spray Inhale 4 mg into affected nostril(s) once daily if needed. 4 Active ondansetron (Zofran) 4 mg tablet Take by mouth every 8 hours. Active tamsulosin 0.4 mg capsule Take 0.4 mg by mouth. 4 Active bisacodyl (LAXATIVE, BISACODYL,) 5 mg tablet Take 4 tablets by mouth once every other day. 0 9 08/13/20 24 Discontinue d(*Patient states no longer taking) ondansetron (ZOFRAN) 4 mg tabletIndications:P eripheral polyneuropathy,Vert igo,Radicular pain of both lower extremities,Cervico -occipital neuralgia of the right side,Occipital headache,Trigeminal nerve disorder,Brain aneurysm,Recurrent occipital headache,Intractabl e migraine with aura with status migrainosus,Migrain e aura, persistent, intractable,Migrain e with aura and with status migrainosus, not intractable TAKE 1 TABLET BY MOUTH EVERY 8 HOURS IF NEEDED FOR NAUSEA or VOMITING 30 Tablet 2 08/13/20 24 Discontinue d(*Patient states no longer taking) tamsulosin (FLOMAX) 0.4 mg capsule Take 0.4 mg by mouth. 3 08/13/20 24 Discontinue d(*Patient states no longer taking) Aimovig Autoinjector 70 mg/mL auto-injector Inject 70 mg subcutaneous once a month. Not taking 4 08/11/20 24 Discontinue d(*Med complete/Re gimen complete/[place] of care change) atorvastatin (Lipitor) 40 mg tabletIndications:M ixed hyperlipidemia,Bila teral carotid artery stenosis Take 1 Tablet (40 mg) by mouth at bedtime. 90 Tablet 3 4 08/13/20 Discontinue d(*Patient states no longer taking) tiZANidine (ZANAFLEX) 4 mg tabletIndications:C ervico-occipital neuralgia of the right side,Trigeminal nerve disorder,Occipital headache,Brain aneurysm TAKE 1 TABLET (4 mg) BY MOUTH EVERY EIGHT HOURS NEEDED 90 Tablet 2 4 08/13/20 24 Discontinue d(*Patient states no longer taking) pregabalin (LYRICA) 150 mg capsuleIndications: Trigeminal nerve disorder,Occipital headache,Radicular pain of both lower extremities,Migrain e aura, persistent, intractable Take 1 Capsule (150 mg) by mouth three times daily. 270 Capsule 3 4 08/13/20 Discontinue d(*Patient states no longer taking) Eliquis 5 mg tabletIndications:P aroxysmal A-fib (HC) TAKE ONE TABLET BY MOUTH TWICE DAILY 180 Tablet 4 07/16/20 Discontinue d(Reorder (E-cancel not sent)) zolpidem (AMBIEN) 10 mg tabletIndications:C ervico-occipital neuralgia of the right side,Trigeminal nerve disorder,Occipital headache,Intractabl e migraine with aura with status migrainosus Take 1 tablet (10 mg) by mouth once nightly at bedtime if needed. 30 Tablet 5 4 08/13/20 Discontinue d(*Patient states no longer taking) diazePAM (VALIUM) 5 mg tabletIndications:C ervico-occipital neuralgia of the right side,Trigeminal nerve disorder,Occipital headache Take 2.5-5 mg by mouth daily if needed for (spams &pain). Use Dates: 06/05/24-07/04/24 Must last at least 30 days 30 Tablet 4 07/15/20 Discontinue d(Reorder (E-cancel not sent)) fentaNYL (DURAGESIC) 50 mcg/hr trasdermal patchIndications:Ce rvico-occipital neuralgia of the right side,Trigeminal nerve disorder,Occipital headache,Degenerati ve disc disease, cervical,Cervical spondylosis Apply 1 Patch on dry, clean, hairless skin every 48 hours. Use dates: 07/14/24-08/12/24 15 Patch 4 07/23/20 Discontinue d(*Medicati on adjustment) diazePAM (VALIUM) 5 mg tabletIndications:C ervico-occipital neuralgia of the right side,Trigeminal nerve disorder,Occipital headache Take 2.5-5 mg by mouth daily if needed for (spams &pain). Use Dates:07/15/24- Must last at least 30 days 30 Tablet 4 08/13/20 Discontinue d(*Patient states no longer taking) apixaban (Eliquis) 5 mg tabletIndications:P aroxysmal A-fib (HC) Take 1 Tablet (5 mg) by mouth two times daily. 180 Tablet 4 08/13/20 Discontinue d(*Patient states no longer taking) clopidogreL (PLAVIX) 75 mg tabletIndications:A maurosis fugax Take 1 Tablet (75 mg) by mouth once daily in the morning. 90 Tablet 3 4 08/13/20 Discontinue d(*Patient states no longer taking) onabotulinumtoxinA (Botox) 100 unit solrIndications:Hea dache disorder Inject 200 units intramuscular one time for 1 dose. 2 Each 4 07/22/20 Active Problems Problem Noted Date Diagnosed Date Controlled substance agreement signed-07/31/24 1 09/30/2023 Overview (07/31/2024): [facility] Francisca Tinsley MA .................... 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 01/31/2024 Controlled substance agreement signed-08/20/2023 08/20/2023 Paroxysmal SVT (supraventricular tachycardia) Nuclear senile cataract of both eyes 02/19/2023 Hyperopia of both eyes with astigmatism and pres byopia 02/19/2023 Hepatic steatosis 11/28/2022 Controlled substance agreement signed 08/08/2022 Overview (08/08/2022): [facility] Liliam Mukherjee CMA 11:43 AM 08/08/22 Chronic obstructive pulmonar y disease, unspecified COPD type 06/18/2021 MDD (major depressive disord er), recurrent, in partial remission 01/29/2019 Migraine aura, persistent, intractable 8 Family history of prostate cancer 05/27/[address] scan, sinus 03/14/2017 Hyperlipidemia, unspecified 03/11/2017 Overview (03/11/2017): The 10-year ASCVD risk score (Scarletmilagros COLE Jr, et al., 2013) is: 8.4% Values used to calculate the score: Age: 56 years Sex: Male Is Non- : No Diabetic: No Tobacco smoker: Yes Systolic Blood Pressure: 100 mmHg Is BP treated: No HDL Cholesterol: 42 mg/dL Total Cholesterol: 200 mg/dL Vitamin D deficiency 03/09/2017 Vitamin B12 deficiency 03/09/2017 Recurrent sinusitis 03/09/2017 Constipation due to opioid therapy 06/24/2015 Other bilateral secondary osteoarthritis of knee 01/20/2015 Vertigo 05/30/2013 Radicular pain of both lower extremities 013 Cervico-occipital neuralgia of the right side Occipital headache 05/24/2012 Trigeminal nerve disorder 05/24/2012 GERD (gastroesophageal reflux disease) 2 Tobacco use disorder 03/13/2012 Headache(784.0) 03/13/2012 Hx Brain aneurysm, S/P stenting 01/19/2010 Overview (01/19/2010): 4 20 mm Stents placed 09/14/2009. Ulcerative colitis, unspecified 04/20/2009 Resolved Problems Problem Noted Date Diagnosed Date Resolved Date Elevated LFTs 01/20/2022 01/31/2024 Controlled substance agreement signed 10/27/2021 01/31/2024 Carotid artery aneurysm 06/18/202101/15 Controlled substance agreeme nt signed- 04/08/2020 04/12/2020 01/31/2024 Overview (04/12/2020): Shira Cotto .................... 04/12/2020 2:40 PM Stenosis of left carotid artery 10/20/2019 01/31/2024 Overview (10/20/2019): 50% narrowing left 10/2019 Controlled substance agreement signed 03/26/2019 05/31/2020 Alcohol use disorder, severe , in sustained remission 01/29/2019 01/31/2024 Overview (01/29/2019): Remission status somewhat unclear Cannabis use disorder, moder ate, in sustained remission 01/29/2019 01/31/2024 Brain aneurysm 12/20/2018 01/31/2024 Controlled substance agreement signed 03/08/2018 05/26/2019 Overview (03/08/2018): 90 day reminder has been signed by pt Controlled substance agreement signed 12/18/2014 05/26/2019 Overview (12/18/2014): [facility] K[facility] pain, bilateral 06/12/2014 015 Migraine, unspecified, with intractable migraine, so stated, without mention of status migrainosus 07/17/2012 01/31/2024 Adjustment disorder with mix ed disturbance of emotions and conduct 04/16/2012 08/14/2012 Hypokalemia 04/14/2012 01/31/2024 Tricyclic overdose 04/13/2012 5 Acute respiratory failure 04/13/2012 Encounters Date Type Department Care Team Description 08/13/2024 9:45 AM MAINFRAME ANALYST Office Visit [facility] [address] [facility] [address] [place] [address] Iveth Shirley NP Derm Problem; Allergic Reaction 08/13/2024 Travel 08/05/[address] [place] [address] Essie Wilson MD Medication Management 07/23/2024 11:30 AM MAINFRAME ANALYST Procedure Only [facility] [address] [facility] [address] [place] [address] Eleni Bell MD Procedure (Botox) 07/23/2024 11:15 AM MAINFRAME ANALYST Office Visit [facility] [address] [facility] [address] [place] [address] Eleni Bell MD Procedure (Botox); Follow Up 07/23/2024 10:57 AM MAINFRAME ANALYST - 07/23/2024 11:59 PM MAINFRAME ANALYST Hospital Encounter [facility] [address] [place] [address] Eleni Bell MD 07/23/2024 Travel 07/18/2024 Travel 07/15/2024 Refill [facility] [address] [facility] [address] [place] [address] Eleni Bell MD Refill Request 07/14/2024 Refill [facility] [address] [facility] [address] [place] [address] Eleni Bell MD Refill Request (Fentanyl patch 50mcg, Dilaudid 2mg, [facility] pharmacy ) 07/12/2024 Refill [facility] [address] [place] [address] Tiffany Mae DO Refill Request (Eliquis) 07/10/2024 1:00 PM CDT Office Visit [facility] [address] [place] [address] Adán Prado MD Consult (Abdominal pain x 1.5 years, overdue for colonoscopy) 07/10/2024 Travel 07/05/2024 Travel 06/30/2024 Refill [facility] [address] [facility] [address] [place] [address] Eleni Bell MD Refill Request (hydromorphone 2 mg cub in [place]) 06/20/2024 Telephone [facility] [address] [facility] [address] [place] [phone] Mani Mullen MD Results (Zio XT ) 06/12/2024 Refill [facility] [address] [place] [address] Eleni Bell MD Refill Request (Fentanyl patch 50 mcg to [facility] pharmacy in [place]) 06/06/2024 Telephone [facility] [address] [place] [address] Eleni Bell MD Prior Authorization (Diazepam 5mg) 06/05/2024 Refill [facility] [address] [place] [address] Eleni Bell MD Refill Request 06/02/2024 Telephone [facility] [address] [place] [address] Eleni Bell MD Prior Authorization 05/29/2024 1:38 PM CDT - 05/29/2024 11:59 PM CDT Hospital Encounter [facility] [address] [facility] [address] [place] [address] Mani Mullen MD Atrial fibrillation, unspecified type (HC) 05/29/2024 1:03 PM CDT - 05/29/2024 1:37 PM CDT Hospital Encounter [facility] [address] [facility] [address] [place] [address] Essie Wilson MD Atrial fibrillation, unspecified type (HC); Idiopathic hypotension 05/29/2024 Travel 05/26/2024 3:00 PM CDT Office Visit [facility] [address] [place] [address] Essie Wilson MD Follow Up (Hypotension; overdue fu) 05/25/2024 Travel 05/14/2024 Refill [facility] [address] [place] [address] Eleni Bell MD Refill Request (Patient needs a refill) from Last 3 Months Immunizations Name Administration Dates Next Due COVID-19 vaccine (Moderna 100mcg/0.5mL) PF, MDV 08/08/2021 COVID-19 vaccine (Moderna Mark eri 50mcg/0.25mL) PF, MDV 01/19/2022 COVID-19 vaccine (Pfizer-Bio NTech 30mcg/0.3mL) PF, MDV 01/10/2021,12/20/2020 Influenza RIV4 (Age 18+ Year s) PRESERV FREE 06/20/2022 Influenza, High-dose Inactivated 09/17/2016 Influenza, IIV3 (Age >=3 years) 06/30/2013,07/18 Influenza, IIV4 06/08/2023,,05/17/2020,2017,08/30/2017,09/20/2016,06/24/2015,1 Influenza, IIV4 (=>6mos) MDV 07/30/2019 Pneumococcal Conj 20-valent (Prevnar 20) 01/19/2022 Pneumococcal Poly,23-Valent (Pneumovax) 03/30/2016 Tdap 11/13/2022,10/30/2012 Zoster (Shingrix-RZV, recombinant) 02/21/2019,,11/13/2018 Family History Medical History Relation Name Comments Cancer-prostate Brother 2 Pneumonia Father Dementia Mother Genetic Other cataract - moth er, and az. Cancer-breast Sister 2 Heart Disease Sister 2 Other Sister 3 ALS Relation Name Status Comments Brother 1 Alive Brother 2 Alive Daughter 1 NUVIA Alive Daughter 2 DEMARCUS Alive Father Heart related. 89 yo Grandchild 1 MAGUI Alive Grandchild 2 BRUCE Alive Mother (Age 95) sep 2010 Other Sister 1 Alive Sister 2 Alive Sister 3 Sister 4 Alive Social History Tobacco Use Types Packs/Day Years Used Date Smoking Tobacco: Every Day Cigarettes 1 48 Started: 1976 Passive Smoke Exposure: Past Smokeless Tobacco: Never Tobacco Cessation:Ready to Q uit: Not Asked; Counseling Given: Not Answered Comments:3-5 cigarettes per day Alcohol Use Standard Drinks/Week Comments No 0 (1 standard drink = 0.6 oz pur e alcohol) PHQ-2 Answer Date Recorded PHQ-2 TOTAL SCORE 2 01/31/2024 Social Connections Answer Date Recorded Frequency of Communication with Friends and Fami ly 0 05/21/2023 Financial Resource Strain Answer Date R ecorded Difficulty of Paying Living Expenses 3 05/21/2023 Difficulty of Paying Living Expenses Not on file 05/21/2023 Food Insecurity Answer Date Recorded Worried About Running Out of Food in the Last Ye ar 1 05/21/2023 Transportation Needs Answer Date Record ed Lack of Transportation (Medical) 1 05/21/2023 Housing Stability Answer Date Recorded Unable to Pay for Housing in the Last Year 1 05/21/2023 Sex and Gender Information Value Date Recorded Sex Assigned at Male 08/26/2021 8:51 AM MAINFRAME ANALYST Gender Identity Male 08/26/2021 8:51 AM MAINFRAME ANALYST Sexual Orientation Straight 08/26/2021 8: 51 AM MAINFRAME ANALYST Obstetrics History Last Filed Vital Signs Vital Sign Reading Time Taken Comments Blood Pressure 116/58 08/13/2024 9:58 AM MAINFRAME ANALYST MAP - 82 Pulse 78 08/13/2024 9:58 AM MAINFRAME ANALYST Temperature 36.2 C (97.1 F) 08/13/2024 9:55 AM MAINFRAME ANALYST Respiratory Rate 14 08/13/2024 9:55 AM MAINFRAME ANALYST Oxygen Saturation 98% 08/13/2024 9:55 AM MAINFRAME ANALYST Inhaled Oxygen Concentration - - Weight 74.2 kg (163 lb 9.6 oz) 08/13/2024 9:55 A M MAINFRAME ANALYST Height 185.4 cm (6' 1) 05/26/2024 2:53 PM CDT Body Mass Index 21.58 05/26/2024 2:53 PM CDT Plan of Treatment Upcoming Encounters Date Type Department Care Team (Late st Contact Info) Description 08/18/2024 3:00 PM MAINFRAME ANALYST Nurse/Clinic Staff Only [facility] [address] [place] [phone] 08/18/2024 3:40 PM MAINFRAME ANALYST Office Visit [facility] [address] [place] [phone] Nicole Garcia NP [address] [place] [address] 08/22/2024 1:30 PM MAINFRAME ANALYST Ancillary Procedure [facility] [address] [place] [address] 2024 11:30 AM MAINFRAME ANALYST Office Visit [facility] [address] [place] [address] Essie Wilson MD [address] [place] [address] 09/24/2024 11:15 AM MAINFRAME ANALYST Office Visit [facility] [address] [place] [address] Eleni Bell MD [address] [place] [address] 09/24/2024 11:30 AM MAINFRAME ANALYST Procedure Only [facility] [address] [place] [address] Eleni Bell MD [address] [place] [address] Health Maintenance Due Date Last Done Comments Influenza for age 50-64 05/18/2024 06/08/20 23, 06/20/2022, 05/25/2021, Additional history exists Low Dose CT (for lung CA) ag e 50-80 08/21/2024 08/21/2023 Colonoscopy through age 75 12/30/202412/30, 12/31/2019, 10/10/2013, Additional history exists Depression screening for age 12+ 02/03/2025 02/04/2024, 01/31/2024, 01/01/2024, Additional history exists BMI (ht and wt on same day) for age 18+ 05/26/2025 05/26/2024, 02/21/2024, 01/31/2024, Additional history exists Lipids for age 45-75 01/30/2029 01/31/2024, 01/26/2023, 01/19/2022, Additional history exists Tetanus booster 11/13/2032 11/13/2022, 10/30/2012 HIV for age 15-65 Completed 05/27/2018 Hepatitis C screening for ag e 18-79 Completed 05/27/2018 Zoster (shingles) series for age 50+ Completed 02/21/2019, 11/29/2018, 11/13/2018 Pneumococcal series for age 6-64 Completed 01/20/20 22, 03/30/2016 Tdap Completed 11/13/2022, 10/30/2012 COVID-19 vaccine series Completed 07/15/20 24, 08/03/2023, 06/20/2022, Additional history exists Procedures Procedure Name Priority Date/Time Associated Diagnosis Comments COMPLIANCE DRUG ANALYSIS Routine 07/23/2024 11:15 AM MAINFRAME ANALYST Encounter for therapeutic drug monitoring CHEMODENERVATION Routine 07/23/2024 10:5 5 AM MAINFRAME ANALYST Chronic migraine with aura, intractable, with status migrainosus EXTENDED HOLTER Routine 06/19/2024 Atrial fibrillation, unspecified type (HC) ECHO TTE COMPLETE WO CONTRAST MAURO 05/29/2024 1:39 PM CDT Atrial fibrillation, unspecified type (HC) Idiopathic hypotension LIPID PANEL W REFLEX MEASURED LDL Routine 01/31/2024 3:20 PM CDT Hyperlipidemia, unspecified hyperlipidemia type CT CHEST SCREENING LOW DOSE WO CONTRAST Routine 08/21/2023 1:14 PM MAINFRAME ANALYST Encounter for screening for lung cancer Personal history of nicotine dependence SCAN-COLONOSCOPY 12/31/2019 11:0 0 AM CDT ANTI HIV 1/2 Routine 05/27/2018 2:49 PM CDT Encounter for general adult medical examination without abnormal findings ANTI HCV Routine 05/27/2018 2:49 PM CDT Encounter for general adult medical examination without abnormal findings from Last 3 Months or Most Recently Relevant to Health Maintenance Results * (ABNORMAL) COMPLIANCE DRUG ANALYSIS (07/23/2024 11:15 AM MAINFRAME ANALYST) 6-MONOACETYL MORPHINE NEG NEG ng/mL 07/26/2024 12:44 PM [facility] AMPHETAMINE URINE NEG <=500 ng/mL 07/26/2024 12:44 PM [facility] BARBITURATE URINE NEG <=200 ng/mL 07/26/2024 12:44 PM [facility] BENZODIAZEPINE URINE POS(A) <=100 ng/mL 07/26/2024 12:44 PM [facility] BUPRENORPHRINE URINE NEG <=5 ng/mL 05/2024 12:44 PM [facility] COCAINE METAB URINE NEG <=300 ng/mL 07/26/2024 12:44 PM [facility] ETHYLGLUCURONIDE URINE NEG <=250 ng/mL 07/26/2024 12:44 PM [facility] FENTANYL URINE POS(A) <=4 ng/mL 07/26/2024 12:44 PM [facility] METHADONE URINE NEG <=300 ng/mL 07/26/2024 12:44 PM [facility] OPIATES URINE POS(A) <=300 ng/mL 07/26/2024 12:44 PM [facility] OXYCODONE URINE NEG <=100 ng/mL 07/26/2024 12:44 PM [facility] PROPOXYPHENE URINE NEG <=300 ng/mL 07/26/2024 12:44 PM [facility] THC 50 URINE NEG <=50 ng/mL 07/26/2024 12:44 PM [facility] TRAMADOL NEG <=200 ng/mL 07/26/2024 12:44 PM [facility] PH URINE 6.8 5.0 - 7.0 07/26/2024 12:44 PM [facility] CREAT UR 375 >=20 mg/dL 07/26/2024 12:44 PM [facility] MASS SPECTROMETRY URINE See Below 07/26/2024 12:44 PM [facility] Comment:Fentanyl, Norfentany l, Hydromorphone, Norvenlafaxine and Zolpidem metabolite present. Urine URINE SPECIMEN / Unknown Non-Blood / Unknown 07/23/2024 11:15 AM MAINFRAME ANALYST 07/24/2024 7:02 AM MAINFRAME ANALYST [facility] - 07/26/2024 12:44 PM MAINFRAME ANALYST Current Outpatient Medications: Aimovig Autoinjector 70 mg/mL auto-injector, Inject 70 mg subcutaneous once a month. Not taking apixaban (Eliquis) 5 mg tablet, Take 1 Tablet (5 mg) by mouth two times daily. atorvastatin (Lipitor) 40 mg tablet, Take 1 Tablet (40 mg) by mouth at bedtime. bisacodyl (LAXATIVE, BISACODYL,) 5 mg tablet, Take 4 tablets by mouth once every other day. cholecalciferol (VITAMIN D-3) 2,000 unit capsule, Take 1 capsule by mouth once daily. clopidogreL (PLAVIX) 75 mg tablet, Take 1 Tablet (75 mg) by mouth once daily in the morning. diazePAM (VALIUM) 5 mg tablet, Take 2.5-5 mg by mouth daily if needed for (spams &pain). Use Dates:07/15/24-08/13/24 Must last at least 30 days docusate (STOOL SOFTENER) 100 mg capsule, Take 1 capsule by mouth 2 times daily if needed for Constipation. prn fentaNYL (DURAGESIC) 50 mcg/hr trasdermal patch, Apply 1 Patch on dry, clean, hairless skin every 48 hours. Use dates: 07/14/24-08/12/24 fluticasone (50 mcg per actuation) nasal solution (FLONASE), Inhale 1 [place] into both nostrils once daily if needed for Rhinitis. [START ON 07/27/2024] HYDROmorphone (DILAUDID) 2 mg tablet, TAKE ONE TABLET BY MOUTH THREE TIMES DAILY NEEDED FOR CHRONIC PAIN. USE DATES: 07/30/24-08/28/24 lactulose 10 gram/15 mL solution, Take 1.5 g by mouth once daily. linaCLOtide (Linzess) 290 mcg cap capsule, Take 1 Capsule (290 mcg) by mouth once daily. MELATONIN ORAL, Take 1 tablet by mouth at bedtime if needed (sleep, on nights when he does not take Ambien). naloxone (Narcan) 4 mg/actuation nasal spray, Inhale 1 [place] (4 mg) into affected nostril(s) one time if needed for Patient Diff To Arouse or Resp Rate < 8 / min. additional doses of NARCAN Nasal [place] may be given every 2 to 3 minutes until emergency medical assistance arrives nicotine (NICORETTE) 2 mg gum, Chew 1 gum (2mg) as needed while awake for nicotine craving. Do not chew more than 1 gum per hour. ondansetron (ZOFRAN) 4 mg tablet, TAKE 1 TABLET BY MOUTH EVERY 8 HOURS IF NEEDED FOR NAUSEA or VOMITING pregabalin (LYRICA) 150 mg capsule, Take 1 Capsule (150 mg) by mouth three times daily. prochlorperazine (COMPAZINE) 10 mg tablet, Take 1 Tablet (10 mg) by mouth every 8 hours if needed for Nausea/Vomiting. FOR NAUSEA/VOMITING tamsulosin (FLOMAX) 0.4 mg capsule, Take 0.4 mg by mouth. tiZANidine (ZANAFLEX) 4 mg tablet, TAKE 1 TABLET (4 mg) BY MOUTH EVERY EIGHT HOURS NEEDED venlafaxine (EFFEXOR) 25 mg tablet, Take 1 Tablet (25 mg) by mouth once daily in the morning. zolpidem (AMBIEN) 10 mg tablet, Take 1 tablet (10 mg) by mouth once nightly at bedtime if needed. No current facility-administered medications for this visit. As of 07/23/2024 Release to patient->Immediate Eleni Bell MD URINE [facility] [address] [facility] [address] [place] [address], * EXTENDED HOLTER (06/19/2024) Mani Mullen MD CARDIAC SERVICES ORD * ECHO TTE COMPLETE WO CONTRAST (05/29/2024 1:39 PM CDT) EJECTION FRACTION 60-65% PROSOLV Anatomical Region Laterality Modality Ultrasound 05/29/2024 1:12 PM CDT Narrative 05/29/2024 4:58 PM CDT 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 Normal left ventricular chamber size. Normal left ventricular wall thickness. Normal left ventricular systolic function. Calculated left ventricular ejection fraction (modified Sullivan technique) is 64%. No regional wall motion abnormalities. 2. Normal right ventricular chamber size. Normal right ventricular systolic function. 3. Normal left ventricular diastolic function. 4. No significant valvular heart disease. When compared to the previous echocardiographic images of 07/24/23, there has been no significant change. Estimated EF: 60-65% FINDINGS Left Ventricle Normal left ventricular chamber size. Normal left ventricular wall thickness. Normal left ventricular systolic function. Calculated left ventricular ejection fraction (modified Sullivan technique) is 64%. No regional wall motion abnormalities. Diastolic Function Normal left ventricular diastolic function. Right Ventricle Normal right ventricular chamber size. Normal right ventricular systolic function. Right ventricular systolic pressure cannot be estimated due to inability to detect peak tricuspid regurgitation Doppler velocity. Left Atrium Normal left atrial size. Left atrial volume index is 28 ml/m . Right Atrium Normal right atrial size. Atrial Septum No evidence of inter-atrial shunt by color flow Doppler. Aortic Valve Normal trileaflet aortic valve. No aortic valve stenosis. No aortic valve regurgitation. Mitral Valve Normal mitral valve. No mitral valve stenosis. Trivial mitral valve regurgitation. Tricuspid Valve Normal tricuspid valve. No tricuspid valve stenosis. Trivial tricuspid valve regurgitation. Pulmonic Valve Normal pulmonary valve. No pulmonary valve regurgitation. No pulmonary valve stenosis. Pericardium No pericardial effusion. Aorta Aortic sinus of Valsalva is normal in size (3.7 cm, ZScore = 0.25). Ascending aorta was not well visualized. Inferior Vena Cava Normal inferior vena cava. MEASUREMENTS (Male / Female) Normal Values 2D MEASUREMENTS AND LV FUNCTION IVS Diastolic Thickness 0.6 cm < 1.1 cm / < 1.0 cm LV Diastolic Diameter PLAX 5.6 cm 4.2 - 5.9 / 3.9 - 5.3 cm LV Diastolic Diameter Index 2.82 cm/m LVPW Diastolic Thickness 0.6 cm < 1.1 cm / < 1.0 cm LV Systolic Diameter PLAX 3.8 cm LV Systolic Diameter Index 1.92 cm/m LVOT Diameter 2.3 cm LVOT Cardiac Output 5.66 l/min LVOT Cardiac Index 2.89 l/min m LVOT Stroke Volume 97.6 ml Stroke Volume Index 49.8 ml/m LV Ejection Fraction MOD BP 63.9 % >= 55 % LA Volume MOD BP 54.7 ml LA Volume Index MOD BP 27.6 ml/m 16 - 34 ml/m RV Diastolic Basal Diameter 3.5 cm RV Diastolic Mid Diameter 2.9 cm LV Mass 116 g LV Mass Index 59.1 g/m Sinuses of Valsalva Diameter(d) 3.7 cm M MODE TAPSE MM 1.97 cm DIASTOLOGY Mitral E Point Velocity 0.711 m/sec 0.70 - 1.02 m/sec Mitral A Point Velocity 0.599 m/sec 0.06 - 1.06 m/sec Mitral E to A Ratio 1.19 1.1 - 2.1 MV Deceleration Time 260 msec 167 - 231 msec LV E' Lateral Velocity 0.122 m/sec Mitral E to LV E' Lateral Ratio 5.83 LV E' Septal Velocity 0.0979 m/sec Mitral E to LV E' Septal Ratio 7.26 AORTIC VALVE AV Peak Velocity 1.42 m/sec < 2.0 m/sec AV Peak Gradient 8.07 mmHg AV Mean Gradient 5 mmHg AV Velocity Time Integral 31.6 cm LVOT Peak Velocity 1.1 m/sec LVOT Velocity Time Integral 23.5 cm AV Area Cont Eq vti 3.09 cm AV Area Cont Eq pk 3.22 cm AV Dimensionless Index 0.744 MITRAL VALVE MV Pressure Half Time 76 msec MV Area PHT 2.89 cm TRICUSPID VALVE AND ESTIMATED PRESSURES Right Atrial Pressure 3 mmHg HCM DATA LVOT AVA (r) 4.84 mmHg Aortic Root ZScore: 0.25 Juan Carlos Sarita MD [facility] Accredited Site (Electronically Signed) Final Date: 29 May 2024 16:58 ICD-10 Codes: I95.0; I48.91 Procedure Note Juan Carlos Stein MBBS - 05/29/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 Normal left ventricular chamber size. Normal left ventricular wallthickness. Normal left ventricular systolic function. Calculated left ventricular ejection fraction (modified Sullivan technique) is 64%. Noregional wall motion abnormalities. 2. Normal right ventricular chamber size. Normal right ventricularsystolic function. 3. Normal left ventricular diastolic function. 4. No significant valvular heart disease. When compared to the previous echocardiographic images of 07/24/23, therehas been no significant change. Estimated EF: 60-65% FINDINGS Left Ventricle Normal left ventricular chamber size. Normal leftventricular wall thickness. Normal left ventricular systolic function. Calculated left ventricular ejection fraction (modified Simpsontechnique) is 64%. No regional wall motion abnormalities. Diastolic Function Normal left ventricular diastolic function. Right Ventricle Normal right ventricular chamber size. Normal rightventricular systolic function. Right ventricular systolic pressure cannot be estimated due to inability to detect peak tricuspidregurgitation Doppler velocity. Left Atrium Normal left atrial size. Left atrial volume index is 28ml/m . Right Atrium Normal right atrial size. Atrial Septum No evidence of inter-atrial shunt by color flow Doppler. Aortic Valve Normal trileaflet aortic valve. No aortic valve stenosis. Noaortic valve regurgitation. Mitral Valve Normal mitral valve. No mitral valve stenosis. Trivialmitral valve regurgitation. Tricuspid Valve Normal tricuspid valve. No tricuspid valve stenosis.Trivial tricuspid valve regurgitation. Pulmonic Valve Normal pulmonary valve. No pulmonary valve regurgitation.No pulmonary valve stenosis. Pericardium No pericardial effusion. Aorta Aortic sinus of Valsalva is normal in size (3.7 cm, ZScore = 0.25).Ascending aorta was not well visualized. Inferior Vena Cava Normal inferior vena cava. MEASUREMENTS (Male / Female) Normal Values 2D MEASUREMENTS AND LV FUNCTION IVS Diastolic Thickness 0.6 cm < 1.1 cm / < 1.0cm LV Diastolic Diameter PLAX 5.6 cm 4.2 - 5.9 / 3.9 -5.3 cm LV Diastolic Diameter Index 2.82 cm/m LVPW Diastolic Thickness 0.6 cm < 1.1 cm / < 1.0cm LV Systolic Diameter PLAX 3.8 cm LV Systolic Diameter Index 1.92 cm/m LVOT Diameter 2.3 cm LVOT Cardiac Output 5.66 l/min LVOT Cardiac Index 2.89 l/min m LVOT Stroke Volume 97.6 ml Stroke Volume Index 49.8 ml/m LV Ejection Fraction MOD BP 63.9 % >= 55 % LA Volume MOD BP 54.7 ml LA Volume Index MOD BP 27.6 ml/m 16 - 34 ml/m RV Diastolic Basal Diameter 3.5 cm RV Diastolic Mid Diameter 2.9 cm LV Mass 116 g LV Mass Index 59.1 g/m Sinuses of Valsalva Diameter(d) 3.7 cm M MODE TAPSE MM 1.97 cm DIASTOLOGY Mitral E Point Velocity 0.711 m/sec 0.70 - 1.02m/sec Mitral A Point Velocity 0.599 m/sec 0.06 - 1.06m/sec Mitral E to A Ratio 1.19 1.1 - 2.1 MV Deceleration Time 260 msec 167 - 231 msec LV E' Lateral Velocity 0.122 m/sec Mitral E to LV E' Lateral Ratio 5.83 LV E' Septal Velocity 0.0979 m/sec Mitral E to LV E' Septal Ratio 7.26 AORTIC VALVE AV Peak Velocity 1.42 m/sec < 2.0 m/sec AV Peak Gradient 8.07 mmHg AV Mean Gradient 5 mmHg AV Velocity Time Integral 31.6 cm LVOT Peak Velocity 1.1 m/sec LVOT Velocity Time Integral 23.5 cm AV Area Cont Eq vti 3.09 cm AV Area Cont Eq pk 3.22 cm AV Dimensionless Index 0.744 MITRAL VALVE MV Pressure Half Time 76 msec MV Area PHT 2.89 cm TRICUSPID VALVE AND ESTIMATED PRESSURES Right Atrial Pressure 3 mmHg HCM DATA LVOT AVA (r) 4.84 mmHg Aortic Root ZScore: 0.25 Juan Carlos Stein MD [facility] Accredited Site (Electronically Signed) Final Date: 29 May 2024 16:58 ICD-10 Codes: I95.0; I48.91 Essie Wilson MD ECHO ORD * (ABNORMAL) LIPID PANEL W REFLEX MEASURED LDL (01/31/2024 3:20 PM CDT) CHOLESTEROL,TOTAL 108 100 - 199 mg/dL 02/01/2024 2:03 AM CDT [facility] [employer] A/[facility] Comment: Cholesterol, Total Reference Ranges Desirable <200 mg/dL Borderline 200-239 mg/dL High >=240 mg/dL TRIGLYCERIDES 119 <150 mg/dL 02/01/2024 2:03 AM CDT [facility] HDL CHOLESTEROL 34(L) >40 mg/dL 2:03 AM CDT [facility] NON-HDL CHOLESTEROL 74 <145 mg/dl 02/01/2024 2:03 AM CDT [facility] CHOL/HDL RATIO 3.18 <4.50 02/01/2024 2:03 AM CDT [facility] LDL CHOLESTEROL 50 <=130 mg/dL 02/01/2024 2:03 AM CDT [facility] VLDL CHOLESTEROL 24 <=30 mg/dL 02/01/2024 2:03 AM CDT [facility] PROVIDER ORDERED STATUS RANDOM 02/01/2024 2:03 AM CDT [facility] Blood BLOOD SPECIMEN / Unknown Venipuncture / Unknown 01/31/2024 3:20 PM CDT 01/31/2024 3:21 PM CDT Tiffany Mae DO CHEMISTRY [facility] [address] [place] [address], [place] * CT CHEST SCREENING LOW DOSE WO CONTRAST [[id number]] -- NOTE: to meet CMS requirements, this order ONLYto be placed by the person completing the Shared Decision Making Visit (08/21/2023 1:14 PM MAINFRAME ANALYST) Anatomical Region Laterality Modality Computed Tomogra phy 08/21/2023 1:14 PM MAINFRAME ANALYST Impressions 08/21/2023 3:11 PM MAINFRAME ANALYST 1. A 4 mm right upper lobe nodule. 2. Moderate centrilobular emphysema. LungRADS CATEGORY: 2 - Benign appearance or behavior (<1% risk of malignancy) -Perifissural nodules(s): <10 mm -Solid nodule(s): <6 mm on baseline screening; or new nodule <4 mm -Subsolid nodule(s): <6 mm on baseline screening -Ground glass nodule(s): <30 mm; or greater than or equal to 30 mm and unchanged or slowly growing - Category 3 or 4 nodules that are unchanged for greater than or equal to 3 months RADIOLOGIST RECOMMENDATION: Continue annual screening with low-dose CT chest in 12 months. Narrative 08/21/2023 3:11 PM MAINFRAME ANALYST For Patients: As a result of the Cures Act, medical imaging exams and procedure reports are released immediately into your electronic medical record. You may view this report before your referring provider. If you have questions, please contact your health care provider. EXAM: LOW DOSE LUNG CANCER SCREENING CT CHEST LOCATION: [facility] DATE: 08/21/2023 INDICATION: Lung cancer screening. History of smoking. High risk patient. COMPARISON: None. TECHNIQUE: Low-dose lung cancer screening non-contrast CT chest. Dose reduction techniques were used. FINDINGS: NODULES: A 4 mm right upper lobe nodule (series 3 image 136). LUNGS AND PLEURA: Moderate centrilobular emphysema. Lungs otherwise clear. No pleural effusion. 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 Heart size normal. Normal caliber thoracic aorta. No lymphadenopathy. CORONARY ARTERY CALCIFICATION: Mild/moderate three-vessel coronary artery calcification. LIMITED UPPER ABDOMEN: Unremarkable. MUSCULOSKELETAL: Bones are demineralized. Procedure Note Charlie, Peter Brandford, MD - 08/21/2023 For Patients: As a result of the Century Cures Act, medical imagingexams and procedure reports are released immediately into your electronicmedical record. You may view this report before your referring provider.If you have questions, please contact your health care provider. EXAM: LOW DOSE LUNG CANCER SCREENING CT CHEST LOCATION: [facility] DATE: 08/21/2023 INDICATION: Lung cancer screening. History of smoking. High riskpatient. COMPARISON: None. TECHNIQUE: Low-dose lung cancer screening non-contrast CT chest. Dosereduction techniques were used. FINDINGS: NODULES: A 4 mm right upper lobe nodule (series 3 image 136). LUNGS AND PLEURA: Moderate centrilobular emphysema. Lungs otherwise clear.No pleural effusion. 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 Heart size normal. Normalcaliber thoracic aorta. No lymphadenopathy. CORONARY ARTERY CALCIFICATION: Mild/moderate three-vessel coronary arterycalcification. LIMITED UPPER ABDOMEN: Unremarkable. MUSCULOSKELETAL: Bones are demineralized. IMPRESSION: 1. A 4 mm right upper lobe nodule. 2. Moderate centrilobular emphysema. LungRADS CATEGORY: 2 - Benign appearance or behavior (<1% risk ofmalignancy) -Perifissural nodules(s): <10 mm -Solid nodule(s): <6 mm onbaseline screening; or new nodule <4 mm -Subsolid nodule(s): <6 mm onbaseline screening -Ground glass nodule(s): <30 mm; or greater than orequal to 30 mm and unchanged or slowly growing - Category 3 or 4 nodulesthat are unchanged for greater than or equal to 3 months RADIOLOGIST RECOMMENDATION: Continue annual screening with low-dose CTchest in [address] * SCAN-COLONOSCOPY (12/31/2019 11:00 AM CDT) Narrative Procedure Note Ulysses Deras MD - 12/31/2019 10:12 AM CDT [facility] [address], [address], [place] [id number] Patient Name: Inocencio Andrew Gender: Male Exam Date: 12/31/2019 Visit Number: [id number] Age: 59 Years Date of : 1960 Attending MD: Ulysses Deras MD Medical Record#:[id number] Procedure: Colonoscopy Indications: Diarrhea (new symptom from baseline constipation due toopiates) H/o UC (see NOTE below) H/o tubular adenoma (2013) Referring MD: Emilie Kumari MD Primary MD: Emilie Kumari MD Medications: Admitting Medications: 0.9% Normal Saline at TKO Intra Procedure Medications: Patient received monitored anesthesia care. Complications: No immediate complications Procedure: An examination of the heart and lungs was performed and found to be withinacceptable limits. The patient was therefore deemed a reasonablecandidate for endoscopy and sedation. The risks and benefits of the procedure were explained to the patient.After obtaining informed consent, the patient received monitoredanesthesia care and I passed the scope without difficulty via the rectum to the ileum. The appendiceal orificeand ic valve were identified. The scope was retroflexed during theexamination The quality of the prep was fair at best (Miralax/GatoradeDouble Prep). This was a complete examination throughout the entire colon. Findings: Normal terminal ileum. Random biopsies were obtained. The prep was adequate at best after extensive washing. Mild pancolonic diverticulosis. Normal mucosa throughouty the colon without evidence of colitis. Randombiopsies were obtained per protocol (r/o inflammation and dysplasia) fromthe cecum, R colon, L colon and rectum. Polyp location: ascending colon. Quantity: 1. Size: 3 mm. Polyp shape:sessile. Maneuver: polypectomy was performed with a cold biopsy forceps. Removal: complete. Retrieval: complete. Bleeding: none. Polyp location: rectum. Quantity: 2. Size: 2-3 mm. Polyp shape:sessile. Maneuver: polypectomy was performed with a cold biopsy forceps . Removal: complete. Retrieval: complete. Bleeding: none. Small internal hemorrhoids without bleeding. Impression: Quiescent ulcerative colitis without complicationEndoscopic Powell Score =0; Normal or inactive disease Colorectal polyps Diverticulosis of colon without diverticulitis impression comments: Await histopathology results. F/u in IBD clinic with MICHAEL. The symptoms may be secondary to OVERFLOW DIARRHEA from constipation. Quit smoking. It also increases your risk for colon cancer and polyps. Preliminary Plan: Repeat colonoscopy in 1 year Comments: DOUBLE MODIFIED PREP (2 d clear liquid diet, Mag Citrate on Day1, Golytely 3/4 day 2 ands 1/4 AM before procedure. Return to your primary care provider as needed. Follow up as previously discussed; This is documented in EndoscopyReport. Antiplatelets/Anticoagulants: Clopidogrel (Plavix). Last dose: 6 daysago. Restart. Date: 12/31/2019 Pathology Results: A: terminal ileum, BIOPSY: 1. Normal ileal mucosa 2. Negative for active and chronic ileitis B: COLON, RANDOM CECUM AND ASCENDING POLYP, BIOPSY: 1. Tubular adenoma 2. Negative for high grade dysplasia 3. Per the colonoscopy report: a. Polyp size: 3 mm b. Resection: Complete c. Retrieval: Complete 4. Separate colonic mucosa with no diagnostic abnormalities C: COLON, RIGHT RANDOM, BIOPSY: 1. Normal colonic mucosa 2. Negative for microscopic, active, and chronic colitis 3. Negative for dysplasia D: COLON, LEFT RANDOM, BIOPSY: 1. Normal colonic mucosa 2. Negative for microscopic, active, and chronic colitis 3. Negative for dysplasia E: RECTUM, BIOPSY: 1. Normal colonic mucosa 2. Negative for microscopic, active, and chronic colitis 3. Negative for dysplasia F: RECTUM, POLYPS: 1. Hyperplastic polyps (2) MICROSCOPIC A: Performed B: Performed C: Performed D: Performed E: Performed F: Performed. Deeper levels were examined. SPECIAL STAINING/DEEPER F: Deeper Electronically signed by: Nigel Henao MD Orders Instruction(s)/Education: Instruction/Education Timeframe Assessment Colon Cancer Prevention K63.5 Colon Polyps K63.5 Diverticulosis/Diverticulitis K57.30 Hemorrhoids K63.5 High Fiber Diet K63.5 Follow-up visit/Referral: Order Comments follow-up visit with IBD clinic MICHAEL 2-3 weeks Final Plan: Return for a colonoscopy in 5 years. We will attempt to contact you at appropriate intervals via U.S. mail. Wemay not be able to find you or contact you at that time, therefore youshould know that the responsibility for following our recommendation restswith you. If you don't hear from us at the time your procedure is due,please contact our office to schedule an appointment. If your contactinformation should change, please contact our office so that we can updateyour record. _Electronically signed by: Ulysses Deras MD 12/31/2019 cc: Emilie Kumari MD cc: Emilie Kumari MD Ulysses Deras MD OTHER * ANTI HCV (05/27/2018 2:49 PM CDT) HEPATITIS C ANTIBODY Non-React magy Non-React magy 05/27/2018 11:34 PM CDT [facility] Comment:Antibodies to HCV no t detected; does not exclude the possibility of exposure to HCV. Blood BLOOD SPECIMEN / Unknown Venipuncture / Unknown 05/27/2018 2:49 PM CDT 05/27/2018 2:51 PM CDT Ty Montez MD SEND OUTS Performing Organization Address City/[facility]/ZIP Co de Phone Number [facility] [employer] A/[facility] [address] [place] [address] * ANTI HIV 1/2 (05/27/2018 2:49 PM CDT) HIV-1/HIV-2 ANTIBODY Non-Reacti ve Non-Reacti ve 05/27/2018 11:20 PM CDT [facility] Comment:HIV-1 p24 and HIV-1/ HIV-2 Ab not detected. Blood BLOOD SPECIMEN / Unknown Venipuncture / Unknown 05/27/2018 2:49 PM CDT 05/27/2018 2:51 PM CDT Ty Montez MD SEND OUTS [facility] [address] [place] [address], from Last 3 Months or Most Recently Relevant to Health Maintenance Advance Directives * Full Code (Latest Code Status on File) Date Activated Date Inactivated Comments 02/19/2024 2:17 PM 02/19/2024 9:08 PM Question Answer Comments Code Status Discussion: Reviewed Preferences * Full Code Date Activated Date Inactivated Comments 09/03/2017 11:50 AM 09/07/2017 8:00 PM * Full Code Date Activated Date Inactivated Comments 04/13/2012 5:19 PM 04/18/2012 4:10 PM * Full Code Date Activated Date Inactivated Comments 04/13/2012 3:32 PM 04/13/2012 5:19 PM Care Teams Assignment Desk Editor Relationship Specialty [place] [address] [place] [address] PCP - General Family Practice 03/07/22 Tino Paez MD Neurology 06/24/15 Nicole Garcia NP [address] [place] [address] Nurse Practitioner - Adult 11/05/23 Mani Mullen MD [address] [place] [address] Consulting Physician Cardiology - Electrophysiology 12/07/23 Eleni Bell MD [address] [facility] [address] [place] [address] Pain Management Pain Medicine - Anesthesiology 06/30/24
--- OUTSIDE RECORDS SUMMARY | 2024-08-13 11:59 | XMS_ITS | Encounter Summary ---
Author Organization [facility] Address [address] [place] [address] Care Team Providers Care Technical Training Manager Name Role Phone Elsewhere, Pcp Primary Care Provider Unavailabl e Reason for Visit * Auth/Cert (Routine) Specialty Diagnoses / Procedures Referred By Contac t Referred To Contact Diagnoses intractable pain Procedures MD REV/RMV IMP SPI NPGR DTCH CN REMOVAL MEDTRONIC DORSAL COLUMN STIMULATOR Merrill Norton M.D. [address] [place] [phone] Phone: tel: fax: Referral ID Status Reason Start Date Expiration Date Visits Re quested Visits Authorized [id number] 1 1 Encounter Details Date Type Department Care Team (Latest Contact Info) Description 07/14/2024 8:18 AM CDT - 07/14/2024 12:03 PM CDT Hospital Encounter Outpatient Procedure Center in [place], [place] [address] [place] [address] Merrill Norton M.D. [address] [place] [phone] Discharge Disposition: Home or Self Care Social History Tobacco Use Types Packs/Day Years [...] your living situation today? I have a [facility] place to live 06/08/2023 Sex and Gender Information Value Date Recorded Sex Assigned at Male 08/15/2018 7:50 AM MOP WORKER Legal Sex Male 1:19 AM MOP WORKER Gender Identity Male 08/15/2018 7:50 AM MOP WORKER Sexual Orientation Straight 08/15/2018 7: 50 AM MOP WORKER documented as of this encounter Last Filed [...] ???Anesthesia PainOutpatient Adult Doctor on-call?? via the [facility] Channel Lip Stiffener Insoles (phone: [phone]) Pain Control Your surgeon may provide you [...] Pain Outpatient Adult Doctor on-call?? via the [facility] Channel Lip Stiffener Insoles (phone: [phone]) if you experience a new, severe headache [...] Chronic Post-op Diagnosis Occipital Neuralgia Headache Chronic Environmental Engineering Assistant A driller's assistant actively participated and was necessary for [...] intravenous Given Payal Bassett 07/14/2024 1037 CDT BIWktswfxzi-xalljlgbb-jbdkngdtgzd 0.25%-0.5%-1:200,000 injection (Herberth 2 alternative) 8 mL [...] 1 Hour (07/14/2024 10:44 AM CDT) Narrative [id number] - 07/14/2024 10:45 AM CDT This exam does not require a radiologist review or interpretation. Please refer to the patient's medical record on this date for clinical details. us Jennifer Corral M.D. IMG FLUOROSCOPY PROCEDURES Final Result [id number] NA documented in this encounter Visit Diagnoses Not on filedocumented in this encounter Administered Medications Inactive Administered Medications - up to 3 most recent administrations Medication Order MAR Action Action Date Dose Rate Site celecoxib capsule 200 mg (CeleBREX) 200 mg, [...] if patient has an allergy to metoprolol. sodium chloride 0.9 % injection 10 mL 10 mL, intravenous, As needed, line care, Starting on Sun07/14/24 at 0836, Pre- Op, Peripheral Intravenous Catheter and Rapid Infusion Catheter, prior to blood sampling, post blood transfusion or post blood sampling sodium chloride 0.9 % injection 3 mL 3 mL, intravenous, As needed, line care, Starting on Sun07/14/24 at 0836, Pre- Op, Prior to and following infusion and between [...] 0930, For 1 dose, Pre-Op 0930 (Due) BEPfrcrfugf-sxzcfbwoo-nxxukomxgge 0.25%-0.5%-1:200,000 injection (Herberth 2 alternative) (COMPLETED) 50 [...] (Given - Provid er: Fawad Bassett APRN, COOK HELPER DESSERT, MNA) celecoxib capsule 200 mg (CeleBREX) (COMPLETED) 200 mg, oral, Once, On Sun07/14/24 at 0930, For 1 dose, Pre-Op 0913 (Given - Provid er: Janet Goldberg R.N.) lidocaine (PF) 10 mg/mL (1 %) injection 0.1 mL (Xylocaine) 0.1 mL, intradermal, Once, On Sun07/14/24 at 0900, For 1 dose, Pre-Op, For IV Placement, Special Procedures Technologist, PreOp 0900 (Due) povidone iodine 0.25% in [...] (Rate/Dose Verify - Provider: Fawad Bassett APRN, PATRICIA, ELIAS)0953 (Paused - Provider: Fawad Bassett APRN, PATRICIA, ELIAS - Comment: Switch to gravity)0954 (Restarted - Provider: Fawad Bassett APRN, PATRICIA, ELIAS)1035 (New Bag - Provider: Fawad Bassett APRN, PATRICIA, MNA)1037 (Anesthesia Volume Adjustment - Provider: Fawad Bassett APRN, PATRICIA, MNA)1111 (Continued from [place] - Provider: Kristine Bowser [...] Noted Time PHQ-9 Depression Total Score: 19 04/02/2 019 9:11 AM CDT documented as of this encounter Care Teams Technical Training Manager Relationship Specialty Start Date End Date Elsewhere, Pcp PCP - General Internal Medicine 06/03/23 documented as of this encounter
--- OUTSIDE RECORDS SUMMARY | 2024-08-13 11:59 | XMS_ITS | Encounter Summary ---
Author Organization [facility] Address [address] [place] [address] Care Team Providers Care Driver License Reviewing Officer Name Role Phone Tejal Gonsalves CAT ASSISTANT CHIEF ENGINEER Unavailable [phone] JosephEleni piper Unavailable Tiffany Mae DO Primary Care Provider [phone] Paola Read MD Unavailable [phone] Paola Read MD Unavailable [phone] Erica Awan [facility] Unavailable [phone] Erica Awan [facility] Unavailable [phone] Reason for Referral * Medication Prior Authorization - Closed Specialty Diagnoses / Procedures Referred By Contac t Referred To Contact Diagnoses Migraine without aura and without status migrainosus, not intractable Paola Read MD [address] [place] [address] Phone: tel: fax: Referral ID Status Reason Start Date Expiration Date Visits Re quested Visits Authorized [id number] Closed 1 1 * Medication Prior Authorization - Closed Specialty Diagnoses / Procedures Referred By Contac t Referred To Contact Diagnoses Migraine without aura and without status migrainosus, not intractable Paola Read MD [address] [place] [address] Phone: tel: fax: Referral ID Status Reason Start Date Expiration Date Visits Re quested Visits Authorized [id number] Closed 1 1 Reason for Visit * Reason Comments Follow Up Encounter Details Date Type Department Care Team (Late st Contact Info) Description 06/27/2024 3:00 PM CDT Virtual Visit [facility] [address] [address] Paola Read MD [address] [place], [place] [id number] Migraine without aura and without status migrainosus, not intractable (Primary Dx) Social History Tobacco Use Types Packs/Day Years [...] on file Legal Sex Male 3:26 AM CHIEF ARSON DIVISION Gender Identity Not on file Sexual Orientation Not on file documented as of this encounter Last Filed Vital Signs Vital Sign Reading Time Taken Comments Blood Pressure - - Pulse - - Temperature - - Respiratory Rate - - Oxygen Saturation - - Inhaled Oxygen Concentration - - Weight 76.7 kg (169 lb) 06/27/2024 2:57 PM CDT Height 186.9 cm (6' 1.58) 06/27/2024 2:57 PM CD T Body Mass Index 21.94 06/27/2024 2:57 PM CDT documented in this encounter Progress Notes * Paola Read MD - 06/27/2024 3:00 PM CDT Images from the original note were not included. Virtual Visit Details Type of service: Video Visit Video Start Time: 3:13 PM Video End Time:3:34 PM Originating Location (pt. 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 Recall, he has an implanted nerve stimulator that is not functional at this time and he is planning on havingthis removed at [facility]. Next steps would be to move forward with imaging: MRI brain with and without contrast Headache treatment plan: Acute medication recommendations: Continue Ubrelvy 100mg (trialed this as a sample and had benefit from this) Preventative medication recommendations: Start Memantine 5mg, increase to 10mg after 1 week Continue Botox, is currently being administered every 9 weeks He is on pregabalin 150mg Venlafaxine 25mg, not at the maximum dose for migraine, cannot increase due to fentanyl and risk for serotonin syndrome No antihypertensives, beta-blockers due to pulse. Stop Aimovig, not helping at this time, and other CGRP antagonists are too expensive within the Medicare donut hole. Will see him in 3 months. Total time spent today was 44 minutes. The longitudinal plan of care for Adam was addressed during this visit. Due to the added complexityin care, I will continue to support Adam in the subsequent management of this condition(s) and withthe ongoing continuity of care of this condition(s). Paola Read MD Neurology Subjective: Inocencio Andrew returns for follow up of chronic migraine, trigeminal pain (RIGHT) and the burning and pressure like occipital pain. Trigeminal pain has been present the same for the past 15 years. The migraine pain responds to the Ubrlevy. The trigeminal pain and occipital pain are separate. There is no difference to these types of pain when he does not have a migraine, the severity is worse though. He did take Ubrelvy and took that both times. It was helpful these last 2 times. Aimovig has not been helpful for the past 3 months, and due to being in the medicare donut hole currently, too costly to continue. He has met with the mental health clinic and has a meeting scheduled with sleep medicine. He has had no atrial fibrillation. He did schedule the stimulator removal at [place], and had had approval for Eliquis removal. He has had occipital nerve blocks with lidocaine and they last up to 8 hours, very short duration. He is still having a daily headache, and he will have about 15-20 days per month which are severe. On average, his pain is a 4/10 and the worst is a 8/10. Additionally trialed gabapentin - somewhat helpful, and the pregabalin works better for ankles and knees, hips. He still has the same level of Fentanyl and is cutting back on Dilaudid and is cutting back as muchas possible. Tylenol and ibuprofen - work, but cannot take both together Current Outpatient Medications Medication Sig Dispense Refill ubrogepant (UBRELVY) 100 MG tablet Take 1 tablet (100 mg) by mouth at onset of headache. 18 tablet 3 apixaban ANTICOAGULANT (ELIQUIS) 5 MG tablet Take 5 mg by mouth 2 times daily atorvastatin (LIPITOR) 40 MG tablet Take 40 mg by mouth daily bisacodyl (DULCOLAX) 5 MG EC tablet Take 5 mg by mouth at bedtime diazepam (VALIUM) 5 MG tablet TAKE ^ TO 1 TABLET (2.5-5 MG) BY MOUTH TWO TIMES A DAY IF NEEDED FOR SPAMS &PAIN. USE DATES: 03/05/23-04/03/23 MUST LAST AT LEAST 30 DAYS* erenumab-aooe (AIMOVIG) 70 MG/ML injection Inject 2 mLs (140 mg) Subcutaneous every 30 days 2 mL 3 fentaNYL (DURAGESIC) 50 mcg/hr [address] 1 patch onto the skin every 48 hours fluticasone (FLONASE) 50 MCG/ACT nasal spray [place] 1 spray in nostril daily HYDROmorphone (DILAUDID) 4 MG tablet Take one-half tablet (2 mg) by mouth every 6 hours if needed for pain. Max 2 tabs/day. Use dates: 10/18/2022- 11/16/2022 metoprolol succinate ER (TOPROL XL) 25 MG 24 hr tablet Take 25 mg by mouth daily naloxegol 25 MG TABS tablet Take 25 mg by mouth daily as needed (constipation) naloxone (NARCAN) 4 MG/0.1ML nasal spray [place] 4 mg in nostril nicotine (NICORETTE) 2 MG gum Take 2 mg by mouth ondansetron (ZOFRAN) 4 MG tablet TAKE 1 TABLET BY MOUTH EVERY 8 HOURS IF NEEDED FOR NAUSEA or VOMITING polyethylene glycol (MIRALAX) 17 g packet Take 4 packets by mouth daily as needed for constipation pregabalin (LYRICA) 150 MG capsule Take 150 mg by mouth 2 times daily prochlorperazine (COMPAZINE) 10 MG tablet Take 10 mg by mouth every 6 hours as needed for nausea (and migraines) tadalafil (CIALIS) 20 MG tablet Take 1 Tablet (20 mg) by mouth once daily if needed for Erectile Dysfunction. Take 30 minutes before sexual activity. tamsulosin (FLOMAX) 0.4 MG capsule Take 0.4 mg by mouth daily tiZANidine (ZANAFLEX) 4 MG tablet TAKE 1 TABLET (4 mg) BY MOUTH EVERY EIGHT HOURS NEEDED venlafaxine (EFFEXOR) 25 MG tablet Take 1 tablet by mouth every morning zolpidem (AMBIEN) 10 MG tablet Take 1 tablet (10 mg) by mouth once nightly at bedtime if needed. No current facility-administered medications for this visit. Objective: Vitals: Ht 1.869 m (6' 1.58) Wt 76.7 kg (169 lb) BMI 21.94 kg/m?? General: Cooperative, NAD Neurologic: Mental Status: Fully alert, attentive and oriented. Speech clear and fluent. Cranial Nerves: Facial movements symmetric. Motor: No abnormal movements. Pertinent Investigations: 02/20/2024 10:22 AM 02/25/2024 10:14 AM 06/27/2024 2:59 PM HIT-6 When you have headaches, how often is the pain severe 11 11 11 How often do headaches limit your ability to do usual daily activities including household work, work, school, or social activities? 11 11 11 When you have a headache, how often do you wish you could lie down? 13 13 13 In the past 4 weeks, how often have you felt too tired to do work or daily activities because of your headaches 11 11 10 In the past 4 weeks, how often have you felt fed up or irritated because of your headaches 11 11 11 In the past 4 weeks, how often did headaches limit your ability to concentrate on work or daily activities 11 11 13 HIT-6 Total Score 68 68 69 11/09/2023 1:40 PM 02/25/2024 10:14 AM 06/27/2024 2:58 PM MIDAS - in the past three months: On how many days did you miss work or school because of your headaches? 30 90 0 How many days was your productivity at work or school reduced by half or more because of your headaches? 15 0 0 On how many days did you not do household work because of your headaches? 10 15 20 How many days was your productivity in household work reduced by half or more because of your headaches? 5 15 30 On how many days did you miss family, social, or leisure activities because of your headaches? 2 5 0 On how many days did you have a headache? 90 90 90 On a scale of 0-10, on average how painful were these headaches? 6 7 7 MIDAS Score 62 (IV - Severe Disability) 125 (IV - Severe Disability) 50 (IV - Severe Disability) documented in this encounter Nursing Notes * Ana Woodard - 06/27/2024 3:00 PM CDT Current patient location: [address] [place] [address] Is the patient currently in the state [facility]? YES Visit mode:VIDEO If the visit is dropped, the patient can be reconnected by: VIDEO VISIT: Text to cell phone: Telephone Information: Will anyone else be joining the visit? NO (If patient encounters technical issues they should call [phone] :[phone]) Are changes needed to the allergy or medication list? No Are refills needed on medications prescribed by this physician? NO Rooming Documentation: Questionnaire(s) completed Reason for visit: Follow Up Ana Woodard VVF documented in this encounter Plan of Treatment Upcoming Encounters Date Type Department Care Team (Late st Contact Info) Description 08/16/2024 2:15 PM CHIEF ARSON DIVISION Appointment [facility] [address] [facility] [address] [place] [address] Paola Read MD [address] [place] [address] documented as of this encounter Visit Diagnoses Diagnosis Migraine without aura and without status migrainosus, not intractable- Primary Migraine without aura, without mention of intractable migraine without mention of status migrainosus documented in this encounter Care Teams Driver License Reviewing Officer Relationship Specialty [place] [address] [place] [address] PCP - General 05/28/23 Tejal Gonsalves APRN ASSISTANT CHIEF ENGINEER [address] [facility] [id number] [place] [address] Nurse Practitioner Neurological Surgery 03/27/23 Eleni Bell [address] [place] [address] Internal Medicine 03/27/23 Paola Read MD [address] [place] [address] Physician Neurology 06/13/23 Paola Read MD [address] [place] [address] Assigned Neuroscience Provider 11/30/23 Erica Awan [facility] [address] [place] [address] Pharmacist Pharmacist 03/18/24 Erica Awan [facility] [address] [place] [address] Assigned MTM Pharmacist 04/08/24 documented as of this encounter
--- OUTSIDE RECORDS SUMMARY | 2024-08-13 11:59 | XMS_ITS | Encounter Summary ---
Author Organization [facility] Address [address] [place] [address] Care Team Providers Care Loan Specialist Name Role Phone Major Tejal Shanta SHELTON DELIVERY RECRUITER Unavailable [phone] Eleni Bell Unavailable MajorTejal APRN DELIVERY RECRUITER Unavailable + [phone] Tiffany Mae DO Primary Care Provider [phone] Paola Read MD Unavailable [phone] Paola Read MD Unavailable [phone] Jose Hemphill MD Unavailable [phone] Jose Hemphill MD Unavailable [phone] Paola Read MD Unavailable [phone] Paola Read MD Unavailable [phone] Erica Awan [facility] Unavailable + [phone] Erica Awan [facility] Unavailable + [phone] Encounter Details Date Type Department Care Team (Late st Contact Info) Description 06/05/2023 Georgette Marcus [facility] [address] [place] [address] [address] Hannah Best Social History Tobacco Use Types Packs/Day Years Used Date Smoking Tobacco: Every Day Smokeless Tobacco: Never Alcohol Use Standard Drinks/Week Comments No 0 (1 standard drink = 0.6 oz pur e alcohol) PHQ-2 Answer Date Recorded PHQ-2 Score 1 06/04/2023 Sex and Gender Information Value Date Recorded Sex Assigned at Not on file Legal Sex Male 3:26 AM ACUTE SPECIALIST Gender Identity Not on file Sexual Orientation Not on file COVID-19 Exposure Response Date Recorded In the last 10 days, have yo u been in contact with someone who was confirmed or suspected to have Coronavirus/COVID-19? No / Unsure 05/23/2023 1:54 PM CDT documented as of this encounter Plan of Treatment Upcoming Encounters Date Type Department Care Team (Late st Contact Info) Description 08/16/2024 2:15 PM ACUTE SPECIALIST Appointment [facility] [address] [facility] [address] [place] [address] Paola Read MD [address] [place] [address] documented as of this encounter Visit Diagnoses Not on filedocumented in this encounter Care Teams Loan Specialist Relationship Specialty [place] [address] [place] [address] PCP - General 05/28/23 Tejal Gonsalves APRN DELIVERY RECRUITER [address] [address] Nurse Practitioner Neurological Surgery 03/27/23 Eleni eBll [address] [place] [address] Internal Medicine 03/27/23 Tejal Gonsalves APRN DELIVERY RECRUITER [address] [place] [address] Assigned Neuroscience Provider 04/07/23 06/08/23 Paola Read MD [address] [place] [address] Physician Neurology 06/13/23 Paola Read MD [address] [place] [address] Assigned Neuroscience Provider 06/09/23 07/13/23 Joes Hemphill MD [address] [place] [address] Assigned Neuroscience Provider 07/14/23 08/24/23 Jose Hemphill MD [address] [place] [address] Assigned Neuroscience Provider 09/08/23 11/29/23 Paola Read MD [address] [place] [address] Assigned Neuroscience Provider 08/25/23 09/07/23 Paola Read MD [address] [place] [address] Assigned Neuroscience Provider 11/30/23 Erica Awan [facility] [address] [place] [address] Pharmacist Pharmacist 03/18/24 Erica Awan [facility] [address] [place] [address] Assigned MTM Pharmacist 04/08/24 documented as of this encounter
--- OUTSIDE RECORDS SUMMARY | 2024-08-13 11:59 | XMS_ITS | Referral Summary ---
Author Organization [place] Address [address] [place] [address] Care Team Providers Care Home Energy Consultant Supervisor Name Role Phone Tejal Gonsalves CAT ACCOUNT MANAGER EDUCATION Unavailable + [phone] Eleni Bell Unavailable Tiffany Mae DO Primary Care Provider [phone] Paola Read MD Unavailable [phone] Paola Read MD Unavailable [phone] Erica Awan [facility] Unavailable + [phone] Erica Awan [facility] Unavailable + [phone] Encounters Date Type Department Care Team Description 08/11/2024 Travel 07/29/[address] [facility] Neurology [facility] - [address], [address] [place] [address] Paola Read MD Facial pain (Primary Dx); Hx of aneurysm; Other symptoms and signs involving the nervous system; Aneurysm of carotid artery (H) 07/28/[address] [facility] [address] [address] Paola Read MD 06/30/[address] [facility] [address] [address] Paola Read MD Prior Auth - Medication (ubrogepant (UBRELVY) 100 MG tablet- [place] drug approved, quantity denied) 06/27/2024 3:00 PM CDT Virtual Visit [facility] [address] [address] Paola Read MD Migraine without aura and without status migrainosus, not intractable (Primary Dx) from Last 3 Months Allergies Active Allergy Reactions Criticality Noted Date Comments Amoxicillin Nausea 01/01/2023 Clavulanic Acid Nausea 01/01/2023 Oxcarbazepine Rash Low 09/27/2012 Jose D ruiz Sulfa Antibiotics Diarrhea,GI Disturbance 01/01 Topiramate Other (See Comments),Rash Low 09/27/2012 Jose D ruiz Trimethoprim Diarrhea 01/01/2023 Medications atorvastatin (LIPITOR) 40 MG tablet Take 40 mg by mouth daily 01/27/20 23 Active diazepam (VALIUM) 5 MG tablet TAKE ^ TO 1 TABLET (2.5-5 MG) BY MOUTH TWO TIMES A DAY IF NEEDED FOR SPAMS &PAIN. USE DATES: 03/05/23-04/03/23 MUST LAST AT LEAST 30 DAYS* 03/05/20 23 Active fentaNYL (DURAGESIC) 50 mcg/hr [address] 1 patch onto the skin every 48 hours 03/19/20 23 Active fluticasone (FLONASE) 50 MCG/ACT nasal spray [place] 1 spray in nostril daily Active HYDROmorphone (DILAUDID) 4 MG tablet Take one-half tablet (2 mg) by mouth every 6 hours if needed for pain. Max 2 tabs/day. Use dates: 10/18/2022- 11/16/2022 10/24/19 23 Active naloxone (NARCAN) 4 MG/0.1ML nasal spray [place] 4 mg in nostril 11/13/19 23 Active nicotine (NICORETTE) 2 MG gum Take 2 mg by mouth 02/09/20 22 Active naloxegol 25 MG TABS tablet Take 25 mg by mouth daily as needed (constipation) Active ondansetron (ZOFRAN) 4 MG tablet TAKE 1 TABLET BY MOUTH EVERY 8 HOURS IF NEEDED FOR NAUSEA or VOMITING 06/08/20 22 Active pregabalin (LYRICA) 150 MG capsule Take 150 mg by mouth 2 times daily Active prochlorperazine (COMPAZINE) 10 MG tablet Take 10 mg by mouth every 6 hours as needed for nausea (and migraines) 06/08/20 22 Active tadalafil (CIALIS) 20 MG tablet Take 1 Tablet (20 mg) by mouth once daily if needed for Erectile Dysfunction. Take 30 minutes before sexual activity. 08/21/20 22 Active tiZANidine (ZANAFLEX) 4 MG tablet TAKE 1 TABLET (4 mg) BY MOUTH EVERY EIGHT HOURS NEEDED 06/08/20 22 Active zolpidem (AMBIEN) 10 MG tablet Take 1 tablet (10 mg) by mouth once nightly at bedtime if needed. 03/23/20 23 Active apixaban ANTICOAGULANT (ELIQUIS) 5 MG tablet Take 5 mg by mouth 2 times daily 06/04/20 23 Active tamsulosin (FLOMAX) 0.4 MG capsule Take 0.4 mg by mouth daily 06/11/20 23 Active venlafaxine (EFFEXOR) 25 MG tablet Take 1 tablet by mouth every morning 10/29/19 24 Active polyethylene glycol (MIRALAX) 17 g packet Take 4 packets by mouth daily as needed for constipation Active bisacodyl (DULCOLAX) 5 MG EC tablet Take 5 mg by mouth at bedtime Active metoprolol succinate ER (TOPROL XL) 25 MG 24 hr tablet Take 25 mg by mouth daily Active ubrogepant (UBRELVY) 100 MG tabletIndications :Migraine without aura and without status migrainosus, not intractable Take 1 tablet (100 mg) by mouth at onset of headache. 18 tablet 3 06/27/20 24 Active memantine (NAMENDA) 5 MG tabletIndications :Migraine without aura and without status migrainosus, not intractable Take 1 tablet (5 mg) by mouth at bedtime for 7 days, THEN 2 tablets (10 mg) at bedtime. 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 Gender Identity Not on file Sexual Orientation Not on file Last Filed Vital Signs Vital Sign Reading Time Taken Comments Blood Pressure 102/55 11/16/2023 11:34 AM AUTOMOBILE CARPETS MOLDER Pulse 59 11/16/2023 11:34 AM AUTOMOBILE CARPETS MOLDER Temperature 36.6 C (97.9 F) 05/23/2023 5:48 PM CDT Respiratory Rate 16 07/03/2023 2:29 PM CDT Oxygen Saturation 98% 09/03/2023 3:52 PM AUTOMOBILE CARPETS MOLDER Inhaled Oxygen Concentration - - Weight 76.7 kg (169 lb) 06/27/2024 2:57 PM CDT Height 186.9 cm (6' 1.58) 06/27/2024 2:57 PM CD T Body Mass Index 21.94 06/27/2024 2:57 PM CDT Plan of Treatment Upcoming Encounters Date Type Department Care Team (Late st Contact Info) Description 08/16/2024 2:15 PM AUTOMOBILE CARPETS MOLDER Appointment [facility] [address] [facility] [address] [place] [address] Paola Read MD [address] [place] [address] Procedures Procedure Name Priority Date/Time Associated Diagnosis Comments ISTAT BASIC CHEM ICA HEMATOCRIT POCT Routine 06/21/2018 5:32 PM CDT from Last 3 Months or Most Recently Relevant to Health Maintenance Results * (ABNORMAL) ISTAT Basic Met ICa HCT POCT (06/21/2018 5:32 PM CDT) Sodium 140 133 - 144 mmol/L 06/21/2018 5:36 PM CDT POINT OF CARE TEST, HANDHELD METER Potassium 3.8 3.4 - 5.3 mmol/L 06/21/2018 5:36 PM CDT POINT OF CARE TEST, HANDHELD METER Chloride 103 94 - 109 mmol/L 06/21/2018 5:36 PM CDT POINT OF CARE TEST, HANDHELD METER Total CO2 26 20 - 32 mmol/L 06/21/2018 5:36 PM CDT POINT OF CARE TEST, HANDHELD METER Anion Gap 11 6 - 17 mmol/L 06/21/2018 5:36 PM CDT POINT OF CARE TEST, HANDHELD METER Glucose 122(H) 70 - 99 mg/dL 06/21/2018 5:36 PM CDT POINT OF CARE TEST, HANDHELD METER Urea Nitrogen 9 7 - 30 mg/dL 06/21/2018 5:36 PM CDT POINT OF CARE TEST, HANDHELD METER Creatinine 0.7 0.66 - 1.25 mg/dL 06/21/2018 5:36 PM CDT POINT OF CARE TEST, HANDHELD METER GFR Estimate >90 >60 mL/min/1.7 m2 06/21/2018 5:36 PM CDT POINT OF CARE TEST, HANDHELD METER GFR Estimate If Black >90 >60 mL/min/1.7 m2 06/21/2018 5:36 PM CDT POINT OF CARE TEST, HANDHELD METER Calcium Ionized 4.8 4.4 - 5.2 mg/dL 06/21/2018 5:36 PM CDT POINT OF CARE TEST, HANDHELD METER Hemoglobin 14.6 13.3 - 17.7 g/dL 06/21/2018 5:36 PM CDT POINT OF CARE TEST, HANDHELD METER Hematocrit - POCT 43 40.0 - 53.0 %PCV 06/21/2018 5:36 PM CDT POINT OF CARE TEST, HANDHELD METER 06/21/2018 5:32 PM CDT 06/21/2018 5:36 PM CDT Adonis Garcia MD [facility] POCT Final Result POINT OF CARE TEST, HANDHELD METER from Last 3 Months or Most Recently Relevant to Health Maintenance Insurance [facility] MEDICARE ADVANTAGE BCBS MEDICARE ADVANTAGE * Guarantor: Inocencio Andrew Account Type Relation to Patient Date of Phone Billing Address Medication Therapy Self [address] [place] [address] BCBS MEDICARE ADVANTAGE BCBS MEDICARE ADVANTAGE Care Teams Home Energy Consultant Supervisor Relationship Specialty Start Date End Date UrieledmondlizetteTiffanyDO [address] [place] [address] PCP - General 05/28/23 Tejal Gonsalves APRN ACCOUNT MANAGER EDUCATION [address] [facility] [place], [place] [address] Nurse Practitioner Neurological Surgery 03/27/23 Eleni Bell [address] [place] [address] Internal Medicine 03/27/23 Paola Read MD [address] [place] [address] Physician Neurology 06/13/23 Paola Read MD [address] [place] [address] Assigned Neuroscience Provider 11/30/23 Erica Awan [facility] [address] [place] [address] Pharmacist Pharmacist 03/18/24 Erica Awan [facility] [address] [place] [address] Assigned MTM Pharmacist 04/08/24
--- OUTSIDE RECORDS SUMMARY | 2024-08-13 11:59 | XMS_ITS | Encounter Summary ---
Author Organization [place] Address [address] [place] [address] Care Team Providers Care Mushroom Growth Media Mixer Name Role Phone Tejal Gonsalves CAT ROENTGENOLOGIST Unavailable [phone] [place] Unavailable Tiffany Mae DO Primary Care Provider [phone] Paola Read MD Unavailable [phone] Paola Read MD Unavailable [phone] Erica Awan [facility] Unavailable [phone] Erica Awan [facility] Unavailable [phone] Encounter Details Date Type Department Care Team (Latest Contact Info) Description 08/11/2024 Travel Social History Tobacco Use Types Packs/Day Years [...] on file 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 Gender Identity Not on file Sexual Orientation Not on file documented as of this encounter Plan of Treatment Upcoming Encounters Date Type Department Care Team (Late st Contact Info) Description 08/16/2024 2:15 PM LEAD ATG DEVELOPER Appointment [facility] [address] [facility] [address] [place] [address] Paola Read MD [address] [place] [address] documented as of this encounter Visit Diagnoses Not on filedocumented in this encounter Care Teams Mushroom Growth Media Mixer Relationship Specialty [place] [address] [place] [address] PCP - General 05/28/23 Tejal Gonsalves APRN ROENTGENOLOGIST [address] [facility] [id number], [place] [address] Nurse Practitioner Neurological Surgery 03/27/23 Eleni Bell [address] [place] [address] Internal Medicine 03/27/23 Paola Read MD [address] [place] [address] Physician Neurology 06/13/23 Paola Read MD [address] [place] [address] Assigned Neuroscience Provider 11/30/23 Erica Awan, [facility] [address] [place] [address] Pharmacist Pharmacist 03/18/24 Erica Awan, [facility] [address] [place] [address] Assigned MTM Pharmacist 04/08/24 documented as of this encounter
--- OUTSIDE RECORDS SUMMARY | 2024-08-13 11:59 | XMS_ITS | Clinical Summary ---
Author Organization [place] Address [address] [place] [address] Care Team Providers Care Cancer Genetics Assistant Name Role Phone Tejal Gonsalves CAT PENSIONS RETIREMENT PLAN SPECIALIST Unavailable [phone] Ray Eleni Unavailable Tiffany Mae DO Primary Care Provider [phone] Paola Read MD Unavailable [phone] Paola Read MD Unavailable [phone] Erica Awan [facility] Unavailable [phone] Erica Awan [facility] Unavailable [phone] Allergies Active Allergy Reactions Criticality Noted Date Comments Amoxicillin Nausea 01/01/2023 Clavulanic Acid Nausea 01/01/2023 Oxcarbazepine Rash Low 09/27/2012 Jose D ruiz Sulfa Antibiotics Diarrhea,GI Disturbance 01/01 Topiramate Other (See Comments),Rash Low 09/27/2012 Jose D ruiz Trimethoprim Diarrhea 01/01/2023 Medications atorvastatin (LIPITOR) 40 MG tablet Take 40 mg by mouth daily 01/27/20 Active diazepam (VALIUM) 5 MG tablet TAKE ^ TO 1 TABLET (2.5-5 MG) BY MOUTH TWO TIMES A DAY IF NEEDED FOR SPAMS &PAIN. USE DATES: 03/05/23-04/03/23 MUST LAST AT LEAST 30 DAYS* 03/05/20 Active fentaNYL (DURAGESIC) 50 mcg/hr [address] 1 patch onto the skin every 48 hours 03/19/20 23 Active fluticasone (FLONASE) 50 MCG/ACT nasal spray [place] 1 spray in nostril daily Active HYDROmorphone (DILAUDID) 4 MG tablet Take one-half tablet (2 mg) by mouth every 6 hours if needed for pain. Max 2 tabs/day. Use dates: 10/18/2022- 11/16/2022 10/24/19 23 Active naloxone (NARCAN) 4 MG/0.1ML nasal spray [place] 4 mg in nostril 11/13/19 23 Active [...] bedtime. 187 tablet 06/27/20 24 025 Active Encounters Date Type Department Care Team Description 08/11/2024 Travel 07/29/[address] [facility] Neurology [address], [address] [place] [address] Paola Read MD Facial pain (Primary Dx); Hx of aneurysm; Other symptoms and signs involving the nervous system; Aneurysm of carotid artery (H) 07/28/[address] [facility] [address] [address] Paola Read MD 06/30/[address] [facility] [address] [address] Paola Read MD Prior Auth - Medication (ubrogepant (UBRELVY) 100 MG tablet- [place] drug approved, quantity denied) 06/27/2024 3:[address] PM CDT Virtual Visit 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 Gender Identity Not on file Sexual Orientation Not on file Last Filed Vital Signs Vital Sign Reading Time Taken Comments Blood Pressure 102/55 11/16/2023 11:34 AM GROOVER OPERATOR Pulse 59 11/16/2023 11:34 AM GROOVER OPERATOR Temperature 36.6 C (97.9 F) 05/23/2023 5:48 PM CDT Respiratory Rate 16 07/03/2023 2:29 PM CDT Oxygen Saturation 98% 09/03/2023 3:52 PM GROOVER OPERATOR Inhaled Oxygen Concentration - - Weight 76.7 kg (169 lb) 06/27/2024 2:57 PM CDT Height 186.9 cm (6' 1.58) 06/27/2024 2:57 PM CD T Body Mass Index 21.94 06/27/2024 2:57 PM CDT Plan of Treatment Upcoming Encounters Date Type Department Care Team (Late st Contact Info) Description 08/16/2024 2:15 PM GROOVER OPERATOR Appointment [facility] Imaging [address] [facility] [address] [place] [address] Paola Read MD [address] [place] [address] Health Maintenance Due Date Last Done Comments ADVANCE CARE PLANNING 1960 ANNUAL REVIEW OF HM ORDERS 1960 CT COLONOGRAPHY 1960 FIT 1960 FLEX SIG 1960 LIPID 1960 NICOTINE/TOBACCO CESSATION COUNSELING Q 1 YR 1960 sDNA (Cologuard) 1960 HIV SCREENING 1975 HEPATITIS C SCREENING 1978 RSV VACCINE (1 - Risk 60-74 years 1-dose series) 2020 GLUCOSE 06/21/2021 06/21/2018 LUNG CANCER SCREENING 08/21/2024 08/21/2023 MEDICARE ANNUAL WELLNESS VISIT 01/30/2025 01/31/2024, 01/26/2023, 01/19/2022, Additional history exists COLONOSCOPY 12/30/2029 12/31/2019 COLORECTAL CANCER SCREENING 12/30/2029 DTAP/TDAP/TD IMMUNIZATION (3 - Td or Tdap) 11/13/2032 11/13/2022, 10/30/2012 ZOSTER IMMUNIZATION Completed 02/21/2019, 11/22/2018, 11/13/2018 Pneumococcal Vaccine: Pediatrics (0 to 5 Years) and At-Risk Patients (6 to 64 Years) Completed 01/19/2022, 03/30/2016 PHQ-2 (once per calendar year) Completed 06/27/2024, 02/25/2024, 11/16/2023, Additional history exists COVID-19 Vaccine Completed 07/15/2024, , 06/20/2022, Additional history exists INFLUENZA VACCINE Completed 07/15/2024, , 06/20/2022, Additional history exists HPV IMMUNIZATION Aged Out No longer e ligible based on patient's age to complete this topic MENINGITIS IMMUNIZATION Aged Out No l onger eligible based on patient's age to complete this topic RSV MONOCLONAL ANTIBODY Aged Out No l onger eligible based on patient's age to complete this topic Procedures Procedure Name Priority Date/Time Associated Diagnosis [...] 06/21/2018 5:36 PM CDT Adonis Garcia MD [facility] POCT Final Result POINT OF CARE TEST, HANDHELD METER from Last 3 Months or Most Recently Relevant to Health Maintenance Insurance [facility] MEDICARE ADVANTAGE BCBS MEDICARE ADVANTAGE * Guarantor: Inocencio Andrew Account Type Relation to Patient Date of Phone Billing Address Medication Therapy Self [address] [place] [address] BCBS MEDICARE ADVANTAGE BCBS MEDICARE ADVANTAGE Care Teams Cancer Genetics Assistant Relationship Specialty [place] [address] [place] [address] PCP - General 05/28/23 Tejal Gonsalves APRN PENSIONS RETIREMENT PLAN SPECIALIST [address] [facility] [address] Nurse Practitioner Neurological Surgery 03/27/23 Eleni Bell [address] [place] [address] Internal Medicine 03/27/23 Paola Read MD [address] [place] [address] Physician Neurology 06/13/23 Paola Read MD [address] [place] [address] Assigned Neuroscience Provider 11/30/23 Erica Awan [facility] [address] [place] [address] Pharmacist Pharmacist 03/18/24 Erica Awan [facility] [address] [place] [address] Assigned MTM Pharmacist 04/08/24
--- OUTSIDE RECORDS SUMMARY | 2024-08-13 11:59 | XMS_ITS | Encounter Summary ---
Author Organization [place] Address [address] [place] [address] Care Team Providers Care Asset Accountant Name Role Phone Tejal Gonsalves CAT EXTERNAL GRINDER TENDER Unavailable + [phone] Eleni Bell Unavailable Tiffany Mae DO Primary Care Provider [phone] Paola Read MD Unavailable [phone] Paola Read MD Unavailable [phone] Erica Awan [facility] Unavailable [phone] Erica Awan [facility] Unavailable [phone] Encounter Details Date Type Department Care Team (Late st Contact Info) Description 03/18/2024 [facility] Sclerosis Clinic [address] [address] Erica Awan, [facility] [address] [place] [address] Social History Tobacco Use Types Packs/Day Years Used Date Smoking Tobacco: Every Day Smokeless Tobacco: Never Alcohol Use Standard Drinks/Week Comments No 0 (1 standard drink = 0.6 oz pur e alcohol) PHQ-2 Answer Date Recorded PHQ-2 Score 2 02/25/2024 Adolescent Education Answer Date Record ed Getting School Help Needed Not on file 06/13 Sex and Gender Information Value Date Recorded Sex Assigned at Not on file Legal Sex Male 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 COOKER Gender Identity Not on file Sexual Orientation Not on file documented as of this encounter Plan of Treatment Upcoming Encounters Date Type Department Care Team (Late st Contact Info) Description 08/16/2024 2:15 PM COCONUT COOKER Appointment [facility] [address] [facility] [address] [place] [address] Paola Read MD [address] [place] [address] documented as of this encounter Visit Diagnoses Not on filedocumented in this encounter Care Teams Asset Accountant Relationship Specialty [place] [address] [place] [address] PCP - General 05/28/23 Tejal Gonsalves APRN EXTERNAL GRINDER TENDER [address] [place] [address] [address] Nurse Practitioner Neurological Surgery 03/27/23 Eleni Bell [address] [place] [address] Internal Medicine 03/27/23 Paola Read MD [address] [place] [address] Physician Neurology 06/13/23 Paola Read MD [address] [place] [address] Assigned Neuroscience Provider 11/30/23 Erica Awan, [facility] [address] [place] [address] Pharmacist Pharmacist 03/18/24 Erica Awan, [facility] [address] [place] [address] Assigned MTM Pharmacist 04/08/24 documented as of this encounter
--- OUTSIDE RECORDS SUMMARY | 2024-08-13 11:59 | XMS_ITS | Encounter Summary ---
Author Organization [place] Address [address] [place] [address] Care Team Providers Care Capacity Manager Name Role Phone Tejal Gonsalves CAT QUANTITATIVE CONSULTANT Unavailable + [phone] Ray Eleni Unavailable Tiffany Mae DO Primary Care Provider [phone] Paola Read MD Unavailable [phone] Jose Hemphill MD Unavailable [phone] Paola Read MD Unavailable [phone] Erica Awan [facility] Unavailable Erica Awan [facility] Unavailable + [phone] Encounter Details Date Type Department Care Team (Late st Contact Info) Description 10/17/2023 [facility] [address] [place] [address] Paola Read MD [address] [place] [address] Social History Tobacco Use Types Packs/Day Years Used Date Smoking Tobacco: Every Day Smokeless Tobacco: Never Alcohol Use Standard Drinks/Week Comments No 0 (1 standard drink = 0.6 oz pur e alcohol) PHQ-2 Answer Date Recorded PHQ-2 Score 0 09/03/2023 Adolescent Education Answer Date Record ed Getting School Help Needed Not on file 06/13 Sex and Gender Information Value Date Recorded Sex Assigned at Not on file Legal 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 Male 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 Gender Identity Not on file Sexual Orientation Not on file documented as of this encounter Plan of Treatment Upcoming Encounters Date Type Department Care Team (Late st Contact Info) Description 08/16/2024 2:15 PM 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 Appointment [facility] Imaging [address] [facility] [address] [place] [address] Paola Read MD [address] [place] [address] documented as of this encounter Visit Diagnoses Not on filedocumented in this encounter Care Teams Capacity Manager Relationship Specialty [place] [address] [facility] [place] [address] PCP - General 05/28/23 Tejal Gonsalves APRN QUANTITATIVE CONSULTANT [address] [place] [address] [id number] [place], [place] [address] Nurse Practitioner Neurological Surgery 03/27/23 Eleni Bell [address] [place] [address] Internal Medicine 03/27/23 Paola Read MD [address] [place] [address] Physician Neurology 06/13/23 Jose Hemphill MD [address] [place] [address] Assigned Neuroscience Provider 09/08/23 11/29/23 Paola Read MD [address] [place] [address] Assigned Neuroscience Provider 11/30/23 Erica Awan RP [address] [place] [address] Pharmacist Pharmacist 03/18/24 Erica Awan [facility] [address] [place] [address] Assigned MTM Pharmacist 04/08/24 documented as of this encounter
--- OUTSIDE RECORDS SUMMARY | 2024-08-13 11:59 | XMS_ITS | Encounter Summary ---
Author Organization [place] [facility] Address [address] [place] [id number] Care Team Providers Care Senior Construction Manager Name Role Phone Tejal Gonsalves CAT AQUACULTURE FARM MANAGER Unavailable + [phone] TejinderEleni grace Unavailable Tiffany Mae DO Primary Care Provider [phone] Paola Read MD Unavailable [phone] Paola Read MD Unavailable [phone] Erica Awan [facility] Unavailable +- [phone] Erica Awan [facility] Unavailable [phone] Reason for Visit * Reason Onset Date Comments Appointment 02/25/2024 Request a switch to video Encounter Details Date Type Department Care Team (Late st Contact Info) Description 02/25/2024 Telephone [facility] [address] [address] Paola Read MD [address] [place] [address] Appointment (Request a switch to video ) Social History Tobacco Use Types Packs/Day Years [...] on file Legal Sex Male 3:26 AM SOLDERER Gender Identity Not on file Sexual Orientation Not on file documented as of this encounter Miscellaneous Notes * Telephone Encounter - Piter Merida ATC - 02/25/2024 8:16 AM CDT Confirmed with Dr. Read that virtual is appropriate for this patient. Please call pt to confirm and switch the appt to video. Piter GUPTA ATC on 02/25/2024 at 8:18 AM * Telephone Encounter - Dennise Trejo - 02/25/2024 7:16 AM CDT [facility] Phone Message May a detailed message be left on voicemail: yes Reason for Call: Patient called requesting a video visit today at, please review and approve of request. Please call [phone] to confirm Action Taken: Other: [facility] Travel Screening: Not Applicable Date of Service: documented in this encounter Plan of Treatment Upcoming Encounters Date Type Department Care Team (Late st Contact Info) Description 08/16/2024 2:15 PM SOLDERER Appointment [facility] [address] [facility] [address] [place] [address] Paola Read MD [address] [place] [address] documented as of this encounter Visit Diagnoses Not on filedocumented in this encounter Care Teams Senior Construction Manager Relationship Specialty [place] [address] [place] [address] PCP - General 05/28/23 Tejal Gonsalves APRN AQUACULTURE FARM MANAGER [address] [facility] [address] Nurse Practitioner Neurological Surgery 03/27/23 Eleni Bell [address] [place] [address] Internal Medicine 03/27/23 Paola Read MD [address] [place] [address] Physician Neurology 06/13/23 Paola Read MD [address] [place] [address] Assigned Neuroscience Provider 11/30/23 Erica Awan [facility] [address] [place] [address] Pharmacist Pharmacist 03/18/24 Erica Awan [facility] [address] [place] [address] Assigned MTM Pharmacist 04/08/24 documented as of this encounter
--- OUTSIDE RECORDS SUMMARY | 2024-08-13 11:59 | XMS_ITS | Encounter Summary ---
Author Organization [place] Address [address] [place] [address] Care Team Providers Care Fire Claims Adjuster Name Role Phone Tejal Gonsalves APRN CONSUMER SERVICES ADVISOR Unavailable + [phone] Tejinderlesly Petros Unavailable Tiffany Mae DO Primary Care Provider [phone] Paola Read MD Unavailable [phone] Paola Read MD Unavailable [phone] Erica Awan [facility] Unavailable +- [phone] Erica Awan [facility] Unavailable [phone] Reason for Visit * Reason Onset Date Comments Prior Auth - Medication 06/30/2024 ubrogepa nt (UBRELVY) 100 MG tablet- [place] drug approved, quantity denied Encounter Details Date Type Department Care Team (Late st Contact Info) Description 06/30/2024 Telephone [facility] [address] [address] Paola Read MD [address] [place] [address] Prior Auth - Medication (ubrogepant (UBRELVY) 100 MG tablet- [place] drug approved, quantity denied) Social History Tobacco Use Types Packs/Day Years [...] on file 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 Central Prior Authorization Team - Prior Authorization Approval Medication: UBRELVY 100 MG PO TABS Authorization Effective Date: 04/03/2024 Authorization Expiration Date: 07/02/2025 Approved Dose/Quantity: 16 Reference #: [employer]: [employer] - [facility] [phone] Expected CoPay: $ CoPay Card Available: Financial Assistance Needed: Which Pharmacy is filling the prescription: [facility] [address] [place] [address] Pharmacy Notified: yes Patient Notified: yes Instructed pharmacy to notify patient once order is ready. * Telephone Encounter - Taylor Vazquez - 07/02/2024 12:36 PM CDT Images from the original note were not included. Central Prior Authorization Team - [place] Initiation Medication: UBRELVY 100 MG PO TABS Insurance Company: [employer] - Pharmacy Filling the Rx: [facility] [address] Filling Pharmacy Filling Pharmacy Fax: Start Date: 07/02/2024 * Telephone Encounter - Flakita Conrad MA - 06/30/2024 9:27 AM CDT Images from the original note were not included. 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 Appointment [facility] [address] [facility] [address] [place] [id number] Paola Read MD [address] [place] [address] documented as of this encounter Visit Diagnoses Not on filedocumented in this encounter Care Teams Fire Claims Adjuster Relationship Specialty [place] [address] [place] [address] PCP - General 05/28/23 Tejal Gonsalves APRN CONSUMER SERVICES ADVISOR [address] [facility] [address] Nurse Practitioner Neurological Surgery 03/27/23 Eleni Bell [address] [place] [address] Internal Medicine 03/27/23 Paola Read MD [address] [place] [address] Physician Neurology 06/13/23 Paola Read MD [address] [place] [address] Assigned Neuroscience Provider 11/30/23 Erica Awan, [facility] [address] [place] [address] Pharmacist Pharmacist 03/18/24 Erica Awna, [facility] [address] [place] [address] Assigned MTM Pharmacist 04/08/24 documented as of this encounter
== END 2024-08-13 12:07 | disposition home or self-care (01) ==
LOC: ED 11:55
PROVIDERS: Emergency Provider Emergency Medicine Emergency Medical Services; PCP Family Medicine
DX: L23.89 Allergic contact dermatitis due to other agents (principal); T36.95XA Adverse effect of unspecified systemic antibiotic, initial encounter
CPT/HCPCS: 99283; 99284; J1100

== ENCOUNTER 2025-03-17 19:24 | Emergency (ER) | payer MEDICARE, SELFPAY ==
[2025-03-17] VITALS (10 sets, daily range): BP systolic 102–153; BP diastolic 54–67; PULSE 72–88; RESP 5–18; TEMP 36.9–38.4; O2SAT 95–98; BMI 21.8
--- OUTSIDE RECORDS SUMMARY | 2025-03-17 19:26 | XMS_ITS | Clinical Summary ---
Author Organization [facility] Address [address] [place] [address] Care Team Providers Care Hedis Review Nurse Name Role Phone Tino Paez MD Unavailable [phone] Tiffany Mae DO Primary Care Provider Nicole Garcia NP Unavailable Mani Mullen MD Unavailable Eleni Bell MD Unavailable Evelia Finney RN Unavailable [phone] Allergies Active Allergy Reactions Criticality Noted Date [...] D ruiz Trimethoprim Diarrhea,GI Upset 01/01/2023 Medications docusate (STOOL SOFTENER) 100 mg capsule Take 1 capsule by mouth 2 times daily if needed for Constipation. prn 0 04/18/20 12 Active fluticasone (50 mcg per actuation) nasal solution (FLONASE) Inhale 1 Christine into both nostrils once daily if needed for Rhinitis. Active MELATONIN ORAL Take 1 tablet by mouth at bedtime if needed (sleep, on nights when he does not take Ambien). Active cholecalciferol (VITAMIN D-3) 2,000 unit capsule Take 1 capsule by mouth once daily. 0 05/17/20 20 Active prochlorperazine (COMPAZINE) 10 mg tabletIndications: Peripheral polyneuropathy,William tigo,Radicular pain of both lower extremities,Cervic o-occipital neuralgia of the right side,Occipital headache,Trigemina l nerve disorder,Brain aneurysm (HC),Recurrent occipital headache,Intractab le migraine with aura with status migrainosus,Migrai ne aura, persistent, intractable,Migrai ne with aura and with status migrainosus, not intractable Take 1 Tablet (10 mg) by mouth every 8 hours if needed for Nausea/Vomiting . FOR NAUSEA/VOMITING 30 Tablet 06/08/20 22 Active nicotine (NICORETTE) 2 mg gumIndications:Tob acco use disorder Chew 1 gum (2mg) as needed while awake for nicotine craving. Do not chew more than 1 gum per hour. 240 Each 3 07/30/20 23 Active lactulose 10 gram/15 mL solution Take 1.5 g by mouth once daily. 01/22/20 24 Active linaCLOtide (Linzess) 290 mcg cap capsuleIndications :Constipation, unspecified constipation type Take 1 Capsule (290 mcg) by mouth once daily. 30 Capsule 11 07/10/20 24 Active Ubrelvy 100 mg tab tablet Take 100 mg by mouth one time if needed for Headache. TAKE 1 TABLET (100 MG) BY MOUTH AT ONSET OF HEADACHE. MAY REPEAT DOSE IN 2 HOURS IF NEEDED. MAX DOSE 200MG IN 24 HOURS Active zolpidem (AMBIEN) 10 mg tablet Take by mouth. 05/25/20 23 Active chlorhexidine (PERIDEX) 0.12 % solution Rinse with 15milliliters (1 capful) by mouth for 30 seconds in the morning and evening after toothbrushing. Spit after rinsing, do not swallow.* 08/01/20 24 Active docusate calcium 240 mg capsule Activ e ibuprofen (ADVIL; MOTRIN) 600 mg tablet Active naloxegoL (MOVANTIK) 25 mg tablet Take 25 mg by mouth. Active ondansetron (ZOFRAN ODT) 4 mg disintegrating tablet Active polyethylene glycol (MIRALAX; GLYCOLAX) 17 g per packet packet Mix 4 Packets in liquid then take by mouth. 06/04/20 23 Active prochlorperazine (Compazine) 25 mg suppository Insert 1 Suppository rectally two times daily. Active tadalafiL (Cialis) 2.5 mg tablet Active bisacodyL (DULCOLAX) 5 mg delayed release tablet Take 5 mg by mouth. Active fluticasone (50 mcg per actuation) nasal solution (FLONASE) Inhale 1 Christine into affected nostril(s). Active ondansetron (Zofran) 4 mg tablet Take by mouth every 8 hours. Active tamsulosin 0.4 mg capsule Take 0.4 mg by mouth. 06/02/20 24 Active pregabalin (LYRICA) 150 mg capsule Take 1 Capsule (150 mg) by mouth three times daily. 09/24/19 25 Active zolpidem (Ambien) 10 mg tabletIndications: Insomnia, unspecified type Take 1 Tablet (10 mg) by mouth at bedtime if needed for Sleep. 30 Tablet 5 10/30/19 25 Active hydrOXYzine HCL 25 mg tabletIndications: Chronic insomnia Take 1 Tablet (25 mg) by mouth at bedtime if needed for Anxiety. 100 Tablet 02/05/20 25 Active clopidogreL 75 mg tabletIndications: Hyperlipidemia, unspecified hyperlipidemia type Take 1 Tablet (75 mg) by mouth once daily in the morning. 100 Tablet 3 02/05/20 25 Active atorvastatin 40 mg tabletIndications: Hyperlipidemia, unspecified hyperlipidemia type Take 1 Tablet (40 mg) by mouth at bedtime. 100 Tablet 3 02/05/20 25 Active cyanocobalamin (vitamin B-12) 1,000 mcg lozg lozengeIndications :Vitamin B12 deficiency [address] 1 Lozenge (1,000 mcg) under the tongue once daily. 100 Lozenge 3 02/06/20 25 Active venlafaxine 37.5 mg Extended-Release capsuleIndications :Generalized anxiety disorder Take 1 Capsule (37.5 mg) by mouth once daily with a meal. 100 Capsule 3 06/18/20 25 Active naloxone (Narcan) 4 mg/actuation nasal sprayIndications:C ervical spondylosis,Chroni c, continuous use of opioids Inhale 1 Christine (4 mg) into affected nostril(s) one time if needed for Patient Diff To Arouse or Resp Rate < 8 / min. additional doses of NARCAN Nasal Christine may be given every 2 to 3 minutes until emergency medical assistance arrives 1 Each 1 03/11/20 Active tiZANidine 4 mg tabletIndications: Cervical spondylosis,Chroni c, continuous use of opioids,Trigeminal neuralgia pain Take 1 Tablet (4 mg) by mouth three times daily. 270 Tablet 3 03/11/20 Active fentaNYL 25 mcg/hr transdermal patchIndications:C hronic, continuous use of opioids,Cervico-oc cipital neuralgia of the right side,Trigeminal nerve disorder,Degenerat magy disc disease, cervical,Degenerat ion of intervertebral disc of lumbar region with discogenic back pain and lower extremity pain,Lumbar spondylosis Apply 1 Patch on dry, clean, hairless skin every 48 hours. Use dates 03/28/25-04/26/25 may fill 3 days early 15 Patch 03/11/20 Active fentaNYL 25 mcg/hr transdermal patchIndications:C ervical spondylosis,Chroni c, continuous use of opioids,Trigeminal neuralgia pain,Cervico-occip ital neuralgia of the right side,Trigeminal nerve disorder,Degenerat magy disc disease, cervical,Degenerat ion of intervertebral disc of lumbar region with discogenic back pain and lower extremity pain,Lumbar spondylosis Apply 1 Patch on dry, clean, hairless skin every 72 hours. Use dates 04/27/25-05/26/25 may fill 3 days early 10 Patch 03/11/20 Active HYDROmorphone (Dilaudid) 2 mg tabletIndications: Cervical spondylosis,Chroni c, continuous use of opioids,Trigeminal neuralgia pain,Cervico-occip ital neuralgia of the right side,Trigeminal nerve disorder,Degenerat magy disc disease, cervical,Degenerat ion of intervertebral disc of lumbar region with discogenic back pain and lower extremity pain,Lumbar spondylosis One po tid prn use dates 04/28/25-05/27/25 may fill 3 days early 90 Tablet 03/11/20 Active diazePAM 5 mg tabletIndications: Facial spasm 1/2- one po qd prn for spasms use dates 03/29/25-04/27/25 30 Tablet 3 03/11/20 Active fentaNYL 25 mcg/hr transdermal patchIndications:C ervical spondylosis,Chroni c, continuous use of opioids,Trigeminal neuralgia pain,Cervico-occip ital neuralgia of the right side,Trigeminal nerve disorder,Degenerat magy disc disease, cervical,Degenerat ion of intervertebral disc of lumbar region with discogenic back pain and lower extremity pain,Lumbar spondylosis,Facial spasm Apply 1 Patch on dry, clean, hairless skin every 72 hours. Use dates 05/27/25-06/25/25 may fill 3 days early 10 Patch 03/11/20 Active HYDROmorphone 2 mg tabletIndications: Chronic, continuous use of opioids,Cervico-oc cipital neuralgia of the right side,Trigeminal nerve disorder,Degenerat magy disc disease, cervical TAKE ONE TABLET BY MOUTH THREE TIMES DAILY NEEDED FOR CHRONIC PAIN. USE DATES: 05/28/25- 5 may fill 2 days early 90 Tablet 03/11/20 Active naloxone (Narcan) 4 mg/actuation nasal sprayIndications:C hronic, continuous use of opioids Inhale 1 Christine (4 mg) into affected nostril(s) one time if needed for Patient Diff To Arouse or Resp Rate < 8 / min. additional doses of NARCAN Nasal Christine may be given every 2 to 3 minutes until emergency medical assistance arrives 1 Each 1 03/11/20 24 025 Discontin ued(Reord er (E-cancel not sent)) fentaNYL 25 mcg/hr transdermal patchIndications:C ervico-occipital neuralgia of the right side,Trigeminal nerve disorder,Degenerat magy disc disease, cervical,Chronic, continuous use of opioids,Degenerati on of intervertebral disc of lumbar region with discogenic back pain and lower extremity pain,Lumbar spondylosis Apply 1 Patch on dry, clean, hairless skin every 48 hours. Use dates 01/27/25-02/25/25 may fill 2 days early 15 Patch 01/26/20 25 025 Discontin ued(Reord er (E-cancel not sent)) diazePAM 5 mg tabletIndications: Facial spasm 1/2- one po qd prn for spasms use dates 01/28/2025-2024 30 Tablet 01/29/20 25 025 Discontin ued(Reord er (E-cancel not sent)) HYDROmorphone 2 mg tabletIndications: Cervico-occipital neuralgia of the right side,Trigeminal nerve disorder,Degenerat magy disc disease, cervical,Chronic, continuous use of opioids TAKE ONE TABLET BY MOUTH THREE TIMES DAILY NEEDED FOR CHRONIC PAIN. USE DATES: 01/28/25-02/26/25 may fill 2 days early 90 Tablet 01/29/20 25 025 Discontin ued(Reord er (E-cancel not sent)) venlafaxine 37.5 mg Extended-Release capsuleIndications :Generalized anxiety disorder Take 1 Capsule (37.5 mg) by mouth once daily with a meal. 30 Capsule 02/05/20 25 025 Discontin ued(Reord er (E-cancel not sent)) tiZANidine 4 mg tabletIndications: Trigeminal neuralgia pain TAKE 1 TABLET (4 mg) BY MOUTH EVERY EIGHT HOURS NEEDED 90 Tablet 02/11/20 25 025 Discontin ued(Reord er (E-cancel not sent)) diazePAM 5 mg tabletIndications: Facial spasm 1/2- one po qd prn for spasms use dates 02/27/2025- 30 Tablet 02/24/20 25 025 Discontin ued(Reord er (E-cancel not sent)) HYDROmorphone 2 mg tabletIndications: Cervico-occipital neuralgia of the right side,Trigeminal nerve disorder,Degenerat magy disc disease, cervical,Chronic, continuous use of opioids TAKE ONE TABLET BY MOUTH THREE TIMES DAILY NEEDED FOR CHRONIC PAIN. USE DATES: 02/27/25-03/28/25 may fill 2 days early 90 Tablet 02/24/20 25 025 Discontin ued(Reord er (E-cancel not sent)) fentaNYL 25 mcg/hr transdermal patchIndications:C ervico-occipital neuralgia of the right side,Trigeminal nerve disorder,Degenerat magy disc disease, cervical,Chronic, continuous use of opioids,Degenerati on of intervertebral disc of lumbar region with discogenic back pain and lower extremity pain,Lumbar spondylosis Apply 1 Patch on dry, clean, hairless skin every 48 hours. Use dates 02/26/25-03/27/25 may fill 2 days early 15 Patch 02/24/20 25 025 Discontin ued(Reord er (E-cancel not sent)) fentaNYL 25 mcg/hr transdermal patchIndications:C ervico-occipital neuralgia of the right side,Trigeminal nerve disorder,Degenerat magy disc disease, cervical,Chronic, continuous use of opioids,Degenerati on of intervertebral disc of lumbar region with discogenic back pain and lower extremity pain,Lumbar spondylosis Apply 1 Patch on dry, clean, hairless skin every 48 hours. Use dates 02/26/25-03/27/25 may fill 2 days early 15 Patch 02/26/20 25 025 Discontin ued(Reord er (E-cancel not sent)) HYDROmorphone 2 mg tabletIndications: Cervico-occipital neuralgia of the right side,Trigeminal nerve disorder,Degenerat magy disc disease, cervical,Chronic, continuous use of opioids TAKE ONE TABLET BY MOUTH THREE TIMES DAILY NEEDED FOR CHRONIC PAIN. USE DATES: 02/27/25-03/28/25 may fill 2 days early 90 Tablet 02/26/20 25 025 Discontin ued(Reord er (E-cancel not sent)) diazePAM 5 mg tabletIndications: Facial spasm 1/2- one po qd prn for spasms use dates 02/27/2025- 30 Tablet 02/26/20 25 025 Discontin ued(Reord er (E-cancel not sent)) HYDROmorphone 2 mg tabletIndications: Chronic, continuous use of opioids,Cervico-oc cipital neuralgia of the right side,Trigeminal nerve disorder,Degenerat magy disc disease, cervical TAKE ONE TABLET BY MOUTH THREE TIMES DAILY NEEDED FOR CHRONIC PAIN. USE DATES: 03/29/25-04/27/25 may fill 2 days early 90 Tablet 03/11/20 25 025 Discontin ued(Reord er (E-cancel not sent)) Active Problems Problem Noted Date Diagnosed Date Moderate major depression 02/04/2025 Controlled substance agreement signed-07/31/24 1 09/30/2023 Overview (07/31/2024): [facility] Francisca Tinsley MA .................... 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 01/31/2024 Controlled substance agreement signed-08/20/2023 08/20/2023 Paroxysmal SVT (supraventricular tachycardia) Nuclear senile cataract of both eyes 02/19/2023 Hyperopia of both eyes with astigmatism and pres byopia 02/19/2023 Hepatic steatosis 11/28/2022 Controlled substance agreement signed 08/08/2022 Overview (08/08/2022): [facility] Liliam Mukherjee CMA 11:43 AM 08/08/22 Chronic obstructive pulmonar y disease, unspecified COPD type 06/18/2021 MDD (major depressive disord er), recurrent, in partial remission 01/29/2019 Migraine aura, persistent, intractable 8 Family history of prostate cancer 05/27/[address] scan, sinus 03/14/2017 Hyperlipidemia, unspecified 03/11/2017 Overview (03/11/2017): The 10-year ASCVD risk score (Scarlet KELSEY Jr, et al., 2013) is: 8.4% Values [...] substance agreement signed 12/18/2014 05/26/2019 Overview (12/18/2014): [facility] Knee pain, bilateral 06/12/2014 015 Migraine, unspecified, with intractable migraine, so stated, without mention of status migrainosus 07/17/2012 01/31/2024 Adjustment disorder with mix ed disturbance of emotions and conduct 04/16/2012 08/14/2012 Hypokalemia 04/14/2012 01/31/2024 Tricyclic overdose 04/13/2012 5 Acute respiratory failure 04/13/2012 Encounters Date Type Department Care Team Description 03/13/2025 Travel 03/12/2025 Telephone [facility] [address] [facility] [address] [place] [address] Eleni Bell MD Appointment 03/11/2025 3:00 PM CDT Patient Outreach [facility] - Advanced Care Team [address] [place] [address] Evelia Finney RN Complex Care Management (New engagement F/U call) 03/11/2025 1:30 PM CDT Procedure Only [facility] [address] [facility] [address] [place] [address] Eleni Bell MD Procedure; Bilateral Cervical MBB #1 03/11/2025 1:27 PM CDT - 03/11/2025 11:59 PM CDT Hospital Encounter [facility] [address] [place] [address] Eleni Bell MD 03/11/2025 Travel 03/04/2025 Travel 02/25/2025 Refill [facility] [address] [facility] [address] [place] [address] Eleni Bell MD Refill Request 02/25/2025 Refill [facility] [address] [facility] [address] [place] [address] Eleni Bell MD Refill Request 02/23/2025 Refill [facility] [address] [facility] [address] [place] [address] Eleni Bell MD Refill Request 02/18/2025 Patient Outreach [facility] Care [facility] - Advanced Care Team [address] [place] [address] Cristobal Serrano Complex Care Management (Complex Care Management Engagement Outreach ) 02/11/2025 Telephone [facility] [address] [place] [address] Eleni Bell MD Abstract 02/11/2025 Telephone [facility] [address] [place] [address] Barbara Underwood PA 02/07/2025 Refill [facility] [address] [place] [address] Eleni Bell MD Refill Request (Tizanidine) 02/04/2025 2:55 PM CDT Office Visit [facility] [address] [facility] [place] [address] Tiffany Mae DO Medicare ANNUAL (subsequent) Visit; Sleep Problem; Musculoskeletal Problem 02/04/2025 Travel 02/02/2025 11:30 AM CDT Procedure Only [facility] [address] [facility] [address] [place] [address] Eelni Bell MD Procedure (Botox) 02/02/2025 11:06 AM CDT - 02/02/2025 11:59 PM CDT Hospital Encounter [facility] [address] [place] [address] Eleni Bell MD 02/02/2025 Travel 01/30/2025 Travel 01/28/2025 Travel 01/28/2025 Telephone [facility] [address] [facility] [address] [place] [address] Millie Leary NP Abstract 01/28/2025 Refill [facility] [address] [facility] [address] [place] [address] Eleni Bell MD Refill Request (Medication name: diazePAM 5 mg tablet/Medication name: HYDROmorphone 2 mg tablet//Pharmacy: [facility] [address] [place] [address]/) 01/22/2025 11:45 AM CDT Office Visit [facility] [address] [place] [address] Eleni Bell MD Follow Up 01/22/2025 Travel 01/17/2025 Travel 01/02/2025 Telephone [facility] [address] [place] [address] Eleni Bell MD Medication Management (Patient would like to know if provider can prescribe something extra after his back surgery.) 12/29/2024 Refill [facility] [address] [place] [address] Eleni Bell MD Medication Management 12/26/2024 1:00 PM CDT Office Visit [facility] [address] [place] [address] Tiffany Mae DO Preoperative Exam (L5 and S1 Lamenectomy on 01/05/2025 at [facility] in [place] with Dr. Michael Salmeron ) 12/25/2024 Travel 12/24/2024 Refill [facility] [address] [place] [address] Eleni Bell MD Refill Request 12/21/2024 Travel from Last 3 Months Immunizations Immunization Administration Dates Next Due COVID-19 vaccine (Moderna 100mcg/0.5mL) PF, MDV 08/08/2021 COVID-19 vaccine (Moderna Mark eri 50mcg/0.25mL) PF, MDV 01/19/2022 COVID-19 vaccine (Pfizer-Bio NTech 30mcg/0.3mL) PF, MDV 01/10/2021,12/20/2020 INFLUENZA, IIV3 PF (AGE >= 6 MO) 07/15/2024 Influenza RIV4 (Age 18+ Year s) PRESERV [...] Types Packs/Day Years Used Date Smoking Tobacco: Some Days Cigarettes 1 48.6 Started: 1976 Passive Smoke Exposure: Past Smokeless Tobacco: Never Tobacco Cessation:Ready to Q uit: Not Asked; Counseling Given: Not Answered Comments:3-5 cigarettes per day Alcohol Use Standard Drinks/Week Comments No 0 (1 standard drink = 0.6 oz pur e alcohol) PHQ-2 Answer Date Recorded PHQ-2 TOTAL SCORE 3 03/11/2025 Social Connections Answer Date Recorded Do you often feel lonely or isolated from those around you? 0 03/11/2025 Financial Resource Strain Answer Date R ecorded Difficulty of Paying Living Expenses 3 12/21/2024 Difficulty of Paying Living Expenses Not on file 12/21/2024 Food Insecurity Answer Date Recorded Do you worry your food will run out before you are able to buy more? 1 03/11/2025 Transportation Needs Answer Date Record ed Does lack of transportation keep you from medica l appointments? 1 03/11/2025 Does lack of transportation keep you from work, meetings or getting things that you need? 1 03/11/2025 Housing Stability Answer Date Recorded What is your housing situation today? 1 03/11/2025 Interpersonal Safety Answer Date Record ed Are you being hit, kicked, p ushed or yelled at (see row info)? No 02/19/2024 Interpersonal Safety Abuse 12 - 18 Not on file 02/19/2024 Interpersonal Safety Ambulatory Vulnerability No t on file 02/19/2024 Utilities Answer Date Recorded Do you have trouble paying f or utilities (for example, heat, electricity, water, phone)? 1 03/11/2025 Sex and Gender Information Value Date Recorded Sex Assigned at Male 08/26/2021 8:51 AM COMMUNITY DEVELOPMENT TECHNICIAN Legal Sex Male 5:47 AM COMMUNITY DEVELOPMENT TECHNICIAN Gender Identity Male 08/26/2021 8:51 AM COMMUNITY DEVELOPMENT TECHNICIAN Sexual Orientation Straight 08/26/2021 8: 51 AM COMMUNITY DEVELOPMENT TECHNICIAN Obstetrics History Last Filed Vital Signs Vital Sign Reading Time Taken Comments Blood Pressure 131/62 03/11/2025 2:40 PM CDT Pulse 68 03/11/2025 2:40 PM CDT Temperature 36.4 C (97.6 F) 03/11/2025 1:30 PM CDT Respiratory Rate 18 03/11/2025 1:30 PM CDT Oxygen Saturation 99% 03/11/2025 1:30 PM CDT Inhaled Oxygen Concentration - - Weight 74.8 kg (165 lb) 03/11/2025 1:30 PM CDT Height 184 cm (6' 0.44) 02/04/2025 2:51 PM CDT Body Mass Index 22.11 02/04/2025 2:51 PM CDT Plan of Treatment Upcoming Encounters Date Type Department Care Team (Late st Contact Info) Description 03/18/2025 2:00 PM CDT Pharmacist Medication Management [facility] [address] [place] [phone] Demarcus Mcnamara, PharmD [address] [place] [address] 03/25/2025 2:00 PM CDT Patient Outreach [facility] Care Management - Advanced Care Team [address] [place] [address] Evelia Finney, DENNIS [address] [place] [address] 03/30/2025 1:30 PM CDT Hospital Encounter [facility] [address] [place] [address] Eleni Bell MD [address] [place] [address] 03/30/2025 1:30 PM CDT Procedure Only [facility] [address] [place] [address] Eleni Bell MD [address] [place], [place] [id number] 05/05/2025 1:30 PM CDT Telemedicine [facility] [address] [place] [address] Carissa Hudson MD [address] [place] [address] Health Maintenance Due Date Last Done Comments RSV vaccine for adults or (1 - Risk 60-74 years 1-dose series) 2020 Colonoscopy through age 75 12/30/202412/30, 12/31/2019, 10/10/2013, Additional history exists Influenza Vaccine (#1) 2025 , 06/08/2023, 06/20/2022, Additional history exists Low Dose CT (for lung CA) age 50-80 08/22/2025 08/22/2024, 08/21/2023 BMI (ht and wt on same day) for age 18+ 02/04/2026 02/04/2025, 12/26/2024, 2024, Additional history exists Depression screening for age 12+ 03/11/2026 03/11/2025, 03/04/2025, 02/04/2024, Additional history exists Lipids for age 45-75 02/04/2030 02/04/2025, 01/31/2024, 01/26/2023, Additional history exists Tetanus booster 11/13/2032 11/13/2022, 10/30/2012 HIV for age 15-65 Completed 05/27/2018 Hepatitis C screening for age 18-79 Completed 05/27/2018 Zoster (shingles) series for age 50+ Completed 02/21/2019, 11/29/2018, 11/13/2018 Pneumococcal series for age 50+ Completed 01/19/2022, 03/30/2016 COVID-19 vaccine series Completed 07/15/20 24, 08/03/2023, 06/20/2022, Additional history exists Hepatitis B series for 19+ Aged Out N o longer eligible based on patient's age to complete this topic Procedures Procedure Name Priority Date/Time Associated Diagnosis Comments [employer] [facility] IMAGE STORAGE Routine 03/11/2025 6:46 AM CDT LIPID PANEL W REFLEX MEASURED LDL Routine 02/04/2025 3:42 PM CDT Hyperlipidemia, unspecified hyperlipidemia type COMP METABOLIC PANEL Routine 02/04/2025 3:42 PM CDT Hepatic steatosis CBC WITH AUTO DIFFERENTIAL Routine 02/04/2025 3:42 PM CDT Moderate major depression (HC) TSH WITH REFLEX Routine 02/04/2025 3:42 PM CDT Moderate major depression (HC) VITAMIN D 25 (DEFICIENCY) Routine 02/04/2025 3:42 PM CDT Vitamin D deficiency Moderate major depression (HC) VITAMIN B12 Routine 02/04/2025 3:42 PM CDT Moderate major depression (HC) CHEMODENERVATION Routine 02/02/2025 11:0 4 AM CDT Chronic migraine with aura, intractable, with status migrainosus COMPLIANCE DRUG ANALYSIS Routine 01/22/2025 11:45 AM CDT Encounter for therapeutic drug monitoring HEMOGLOBIN Routine 12/26/2024 1:34 PM CDT Preoperative examination CT CHEST SCREENING LOW DOSE WO CONTRAST Routine 08/22/2024 1:52 PM COMMUNITY DEVELOPMENT TECHNICIAN Encounter for screening for lung cancer Smoker SCAN-COLONOSCOPY 12/31/2019 11:0 0 AM CDT ANTI HIV 1/2 Routine 05/27/2018 2:49 PM CDT Encounter for general adult medical examination without abnormal findings ANTI HCV Routine 05/27/2018 2:49 PM CDT Encounter for general adult medical examination without abnormal findings from Last 3 Months or Most Recently Relevant to Health Maintenance Results * TSH WITH REFLEX (02/04/2025 3:42 PM CDT) TSH W/REFLEX TO FT4 0.78 0.40 - 4.50 mIU/L [employer] Blood BLOOD SPECIMEN / Unknown 02/04/2025 3:42 PM CDT 02/04/2025 3:42 PM CDT us Tiffany Mae DO CHEMISTRY Final Resul t [facility] [address] [place] [phone], [facility] [address] [place] [address] * (ABNORMAL) LIPID PANEL W REFLEX MEASURED LDL (02/04/2025 3:42 PM CDT) CHOLESTEROL, TOTAL 108 <200 mg/dL [facility] HDL CHOLESTEROL 33(L) > OR = 40 mg/dL [facility] TRIGLYCERIDES 159(H) <150 mg/dL [facility] LDL-CHOLESTEROL 51 mg/dL (calc) [facility] Comment: Reference range: <100 Desirable range <100 mg/dL for primary prevention; <70 mg/dL for patients with CHD or diabetic patients with > or = 2 CHD risk factors. LDL-C is now calculated using the Viktoria calculation, which is a validated novel method providing better accuracy than the Friedewald equation in the estimation of LDL-C. Adán MCLEOD et al. JUAN FRANCISCO. 2013;310(19): 3930-6040 (http://education.ffk environment.Cleanify/faq/EYM419) CHOL/HDLC RATIO 3.3 <5.0 (calc) [facility] NON HDL CHOLESTEROL 75 <130 mg/dL (calc) [facility] Comment: For patients with diabetes plus 1 major ASCVD risk factor, treating to a non-HDL-C goal of <100 mg/dL (LDL-C of <70 mg/dL) is considered a therapeutic option. Blood BLOOD SPECIMEN / Unknown 02/04/2025 3:42 PM CDT 02/04/2025 3:42 PM CDT Tiffany Mae DO CHEMISTRY Final Resul t Performing Organization Address [facility] de Phone Number [facility] [address] [address], [facility] [address] * (ABNORMAL) VITAMIN D 25 (DEFICIENCY) (02/04/2025 3:42 PM CDT) Pathologist [facility] VITAMIN D,25-OH,TOTAL,IA 26(L) 30 - 100 ng/mL [facility] Comment: Vitamin D Status 25-OH Vitamin D: Deficiency: <20 ng/mL Insufficiency: 20 - 29 ng/mL Optimal: > or = 30 ng/mL For 25-OH Vitamin D testing on patients on D2-supplementation and patients for whom quantitation of D2 and D3 fractions is required, the [facility]() 25-OH VIT D, (D2,D3), LC/MS/MS is recommended: order code [id number] (patients >2yrs). See Note 1 Note 1 For additional information, please refer to http://education.ffk environment.Cleanify/faq/GDQ468 (This link is being provided for informational/ educational purposes only.) Blood BLOOD SPECIMEN / Unknown 02/04/2025 3:42 PM CDT 02/04/2025 3:42 PM CDT us Tiffany Mae DO SEND OUTS Final Resul t Performing Organization Address City/[facility]/ZIP Co de Phone Number [facility] [address] [place] [address], [facility] [address] [place] [address] * CBC AND DIFFERENTIAL (02/04/2025 3:42 PM CDT) WHITE BLOOD CELL COUNT 6.5 3.8 - 10.8 Thousand/u L [facility] RED BLOOD CELL COUNT 4.73 4.20 - 5.80 Million/uL [facility] HEMOGLOBIN 13.9 13.2 - 17.1 g/dL [facility] HEMATOCRIT 42.0 38.5 - 50.0 % [facility] MCV 88.8 80.0 - 100.0 fL [facility] MCH 29.4 27.0 - 33.0 pg [facility] MCHC 33.1 32.0 - 36.0 g/dL [facility] Comment: For adults, a slight decrease in the calculated MCHC value (in the range of 30 to 32 g/dL) is most likely not clinically significant; however, it should be interpreted with caution in correlation with other red cell parameters and the patient's clinical condition. RDW 14.2 11.0 - 15.0 % [facility] PLATELET COUNT 169 140 - 400 Thousand/u L [facility] MPV 11.1 7.5 - 12.5 fL [facility] ABSOLUTE NEUTROPHILS 2,412 1,500 - 7,800 cells/uL [facility] ABSOLUTE LYMPHOCYTES 3,101 850 - 3,900 cells/uL [facility] ABSOLUTE MONOCYTES 858 200 - 950 cells/uL [facility] ABSOLUTE EOSINOPHILS 117 15 - 500 cells/uL [facility] ABSOLUTE BASOPHILS 13 0 - 200 cells/uL [facility] NEUTROPHILS 37.1 % [facility] LYMPHOCYTES 47.7 % [facility] MONOCYTES 13.2 % [facility] EOSINOPHILS 1.8 % [facility] BASOPHILS 0.2 % [facility] Blood BLOOD SPECIMEN / Unknown 02/04/2025 3:42 PM CDT 02/04/2025 3:42 PM CDT Tiffany Mae DO HEMATOLOGY Final Resul t Performing Organization Address [facility] de Phone Number [facility] [address] [place] [address], [facility] [address] [place] [address] * VITAMIN B12 (02/04/2025 3:42 PM CDT) VITAMIN B12 280 200 - 1,100 pg/mL [employer] kevin [facility] Comment: Please Note: Although the reference range for vitamin B12 is 200-1100 pg/mL, it has been reported that between 5 and 10% of patients with values between 200 and 400 pg/mL may experience neuropsychiatric and hematologic abnormalities due to occult B12 deficiency; less than 1% of patients with values above 400 pg/mL will have symptoms. Blood BLOOD SPECIMEN / Unknown 02/04/2025 3:42 PM CDT 02/04/2025 3:42 PM CDT Tiffany Mae DO CHEMISTRY Final Resul t Performing Organization Address [facility] de Phone Number [facility] [address] [address], [facility] [address] [place] [address] * COMP METABOLIC PANEL (02/04/2025 3:42 PM CDT) GLUCOSE 78 65 - 99 mg/dL [facility] Comment: Fasting reference interval UREA NITROGEN (BUN) 11 7 - 25 mg/dL [facility] CREATININE 1.14 0.70 - 1.35 mg/dL [facility] EGFR 72 > OR = 60 mL/min/1. 73m2 [facility] BUN/CREATININE RATIO SEE NOTE: 6 - 22 (calc) [facility] Comment: Not Reported: BUN and Creatinine are within reference range. SODIUM 142 135 - 146 mmol/L [facility] POTASSIUM 4.3 3.5 - 5.3 mmol/L [facility] CHLORIDE 105 98 - 110 mmol/L [facility] CARBON DIOXIDE 26 20 - 32 mmol/L [facility] CALCIUM 9.1 8.6 - 10.3 mg/dL [facility] PROTEIN, TOTAL 6.5 6.1 - 8.1 g/dL [facility] ALBUMIN 4.1 3.6 - 5.1 g/dL [facility] GLOBULIN 2.4 1.9 - 3.7 g/dL (calc) [facility] ALBUMIN/GLOBULIN RATIO 1.7 1.0 - 2.5 (calc) [facility] BILIRUBIN, TOTAL 0.6 0.2 - 1.2 mg/dL [facility] ALKALINE PHOSPHATASE 121 35 - 144 U/L [facility] AST 14 10 - 35 U/L [facility] ALT 16 9 - 46 U/L [facility] Blood BLOOD SPECIMEN / Unknown 02/04/2025 3:42 PM CDT 02/04/2025 3:42 PM CDT us Tiffany Mae DO CHEMISTRY Final Resul t [facility] [address] [place] [address], [facility] [address] [place] [address] * (ABNORMAL) COMPLIANCE DRUG ANALYSIS (01/22/2025 11:45 AM CDT) 6-MONOACETYL MORPHINE NEG NEG ng/mL 01/27/2025 10:45 AM CDT [facility] AMPHETAMINE URINE NEG <=500 ng/mL 01/27/2025 10:45 AM [facility] BARBITURATE URINE NEG <=200 ng/mL 01/27/2025 10:45 AM [facility] BENZODIAZEPINE URINE POS(A) <=100 ng/mL 01/27/2025 10:45 AM [facility] BUPRENORPHRINE URINE NEG <=5 ng/mL 01/15 10:45 AM [facility] COCAINE METAB URINE NEG <=300 ng/mL 01/27/2025 10:45 AM [facility] ETHYLGLUCURONIDE URINE NEG <=250 ng/mL 01/27/2025 10:45 AM [facility] FENTANYL URINE POS(A) <=5 ng/mL 01/27/2025 10:45 AM [facility] METHADONE URINE NEG <=300 ng/mL 01/27/2025 10:45 AM [facility] OPIATES URINE POS(A) <=300 ng/mL 01/27/2025 10:45 AM [facility] OXYCODONE URINE NEG <=100 ng/mL 01/27/2025 10:45 AM [facility] PROPOXYPHENE URINE NEG <=300 ng/mL 01/27/2025 10:45 AM [facility] THC 50 URINE NEG <=50 ng/mL 01/27/2025 10:45 AM [facility] TRAMADOL NEG <=200 ng/mL 01/27/2025 10:45 AM [facility] PH URINE 7.2(H) 5.0 - 7.0 01/27/2025 10:45 AM [facility] CREAT UR 63 >=20 mg/dL 01/27/2025 10:45 AM [facility] MASS SPECTROMETRY URINE See Below 01/27/2025 10:45 AM [facility] Comment:Hydromorphone and No rfentanyl present. Urine URINE SPECIMEN / Unknown Non-Blood / Unknown 01/22/2025 11:45 AM CDT 01/23/2025 8:58 AM CDT [facility] - 01/27/2025 10:45 AM CDT Hydrophone 2mg last dose 7am 01/22/25 Current Outpatient Medications: atorvastatin (LIPITOR) 40 mg tablet, Take by mouth. bisacodyL (DULCOLAX) 5 mg delayed release tablet, Take 5 mg by mouth. chlorhexidine (PERIDEX) 0.12 % solution, Rinse with 15milliliters (1 capful) by mouth for 30 seconds in the morning and evening after toothbrushing. Spit after rinsing, do not swallow.* cholecalciferol (VITAMIN D-3) 2,000 unit capsule, Take 1 capsule by mouth once daily. clopidogreL (PLAVIX) 75 mg tablet, Take 1 Tablet (75 mg) by mouth once daily in the morning* diazePAM 5 mg tablet, 1/2- one po qd prn for spasms use dates 12/29/24-01/27/25 docusate (STOOL SOFTENER) 100 mg capsule, Take 1 capsule by mouth 2 times daily if needed for Constipation. prn docusate calcium 240 mg capsule, fentaNYL 25 mcg/hr transdermal patch, Apply 1 Patch on dry, clean, hairless skin every 48 hours. Use dates 12/29/24-01/26/25 may fill 3 days early fluticasone (50 mcg per actuation) nasal solution (FLONASE), Inhale 1 Christine into affected nostril(s). fluticasone (50 mcg per actuation) nasal solution (FLONASE), Inhale 1 Christine into both nostrils once daily if needed for Rhinitis. HYDROmorphone 2 mg tablet, TAKE ONE TABLET BY MOUTH THREE TIMES DAILY NEEDED FOR CHRONIC PAIN. USE DATES: 12/29/24 - 01/26/25 may fill 3 days early ibuprofen (ADVIL; MOTRIN) 600 mg tablet, lactulose 10 gram/15 mL solution, Take 1.5 g by mouth once daily. linaCLOtide (Linzess) 290 mcg cap capsule, Take 1 Capsule (290 mcg) by mouth once daily. MELATONIN ORAL, Take 1 tablet by mouth at bedtime if needed (sleep, on nights when he does not take Ambien). naloxegoL (MOVANTIK) 25 mg tablet, Take 25 mg by mouth. naloxone (Narcan) 4 mg/actuation nasal spray, Inhale 1 Christine (4 mg) into affected nostril(s) one time if needed for Patient Diff To Arouse or Resp Rate < 8 / min. additional doses of NARCAN Nasal Christine may be given every 2 to 3 minutes until emergency medical assistance arrives nicotine (NICORETTE) 2 mg gum, Chew 1 gum (2mg) as needed while awake for nicotine craving. Do not chew more than 1 gum per hour. ondansetron (ZOFRAN ODT) 4 mg disintegrating tablet, ondansetron (Zofran) 4 mg tablet, Take by mouth every 8 hours. polyethylene glycol (MIRALAX; GLYCOLAX) 17 g per packet packet, Mix 4 Packets in liquid then take by mouth. pregabalin (LYRICA) 150 mg capsule, Take 1 Capsule (150 mg) by mouth three times daily. prochlorperazine (COMPAZINE) 10 mg tablet, Take 1 Tablet (10 mg) by mouth every 8 hours if needed for Nausea/Vomiting. FOR NAUSEA/VOMITING prochlorperazine (Compazine) 25 mg suppository, Insert 1 Suppository rectally two times daily. tadalafiL (Cialis) 2.5 mg tablet, tamsulosin 0.4 mg capsule, Take 0.4 mg by mouth. tiZANidine (ZANAFLEX) 4 mg tablet, TAKE 1 TABLET (4 mg) BY MOUTH EVERY EIGHT HOURS NEEDED Ubrelvy 100 mg tab tablet, Take 100 mg by mouth one time if needed for Headache. TAKE 1 TABLET (100 MG) BY MOUTH AT ONSET OF HEADACHE. MAY REPEAT DOSE IN 2 HOURS IF NEEDED. MAX DOSE 200MG IN 24 HOURS venlafaxine (EFFEXOR) 25 mg tablet, Take 1 Tablet (25 mg) by mouth once daily in the morning. zolpidem (Ambien) 10 mg tablet, Take 1 Tablet (10 mg) by mouth at bedtime if needed for Sleep. zolpidem (AMBIEN) 10 mg tablet, Take by mouth. No current facility-administered medications for this visit. As of 01/22/2025 Release to patient->Immediate us Eleni Bell MD URINE Final Result [facility] [address] [place] [address], [place] * HEMOGLOBIN (12/26/2024 1:34 PM CDT) HEMOGLOBIN 14.7 13.2 - 17.1 g/dL [facility] Blood BLOOD SPECIMEN / Unknown 12/26/2024 1:34 PM CDT 12/26/2024 1:34 PM CDT us Tiffany Mae DO HEMATOLOGY Final Resul t [facility] [address] [place] [address], [place] [phone] [facility] [address] [place] [address] * CT CHEST SCREENING LOW DOSE WO CONTRAST (08/22/2024 1:52 PM COMMUNITY DEVELOPMENT TECHNICIAN) Anatomical Region Laterality Modality Computed Tomogra phy 08/22/2024 1:52 PM COMMUNITY DEVELOPMENT TECHNICIAN Impressions 08/23/2024 12:02 PM COMMUNITY DEVELOPMENT TECHNICIAN Stable 4 mm nodule right upper lobe which likely is benign. No new or enlarging nodules. LungRADS CATEGORY: 2 - Benign appearance or [...] low-dose CT chest in 12 months. Narrative 08/23/2024 12:02 PM COMMUNITY DEVELOPMENT TECHNICIAN For Patients: As a result of the Century Cures Act, medical imaging exams and procedure reports are released immediately into your electronic medical record. You may view this report before your referring provider. If you have questions, please contact your health care provider. EXAM: LOW DOSE LUNG CANCER SCREENING CT CHEST LOCATION: [facility] DATE: 08/22/2024 INDICATION: Lung cancer screening. History of smoking. High risk patient. COMPARISON: 08/21/2023 TECHNIQUE: Low-dose lung cancer screening non-contrast CT chest. Dose reduction techniques were used. FINDINGS: NODULES: 4 mm nodule right upper lobe (series 3, image 114). No new or enlarging nodules. LUNGS AND PLEURA: Mild emphysema. No focal consolidation or effusion. MEDIASTINUM: Heart is normal in size. No mediastinal, axillary, or hilar adenopathy. CORONARY ARTERY CALCIFICATION: Mild. LIMITED UPPER ABDOMEN: Normal. MUSCULOSKELETAL: Degenerative changes of the spine. Procedure Note Irwin Gallardo MD - 08/23/2024 For Patients: As a result of the Cures Act, medical imagingexams and procedure reports are released immediately into your electronicmedical record. You may view this report before your referring provider.If you have questions, please contact your health care provider. EXAM: LOW DOSE LUNG CANCER SCREENING CT CHEST LOCATION: [facility] DATE: 08/22/2024 INDICATION: Lung cancer screening. History of smoking. High riskpatient. COMPARISON: 08/21/2023 TECHNIQUE: Low-dose lung cancer screening non-contrast CT chest. Dosereduction techniques were used. FINDINGS: NODULES: 4 mm nodule right upper lobe (series 3, image 114). No new orenlarging nodules. LUNGS AND PLEURA: Mild emphysema. No focal consolidation or effusion. MEDIASTINUM: Heart is normal in size. No mediastinal, axillary, or hilaradenopathy. CORONARY ARTERY CALCIFICATION: Mild. LIMITED UPPER ABDOMEN: Normal. MUSCULOSKELETAL: Degenerative changes of the spine. IMPRESSION: Stable 4 mm nodule right upper lobe which likely is benign. No new orenlarging nodules. LungRADS CATEGORY: 2 - Benign appearance or [...] screening with low-dose CTchest in 12 months. us Tiffany Pleitez Jessicalizette DO CT Final Resul t * SCAN-COLONOSCOPY (12/31/2019 11:00 AM CDT) Narrative Procedure Note Ulysses Deras MD - 12/31/2019 10:12 AM CDT [facility] [address] [place] [address], [address], [place] [address] Patient Name: Inocencio Andrew Gender: Male Exam Date: 12/31/2019 Visit Number: [id number] Age: 59 Years Date of : 1960 Attending MD: Ulysses Deras MD Medical Record#:[id number] Procedure: Colonoscopy Indications: Diarrhea (new symptom from baseline constipation due toopiates) H/o UC (see NOTE below) H/o tubular adenoma (2013) Referring MD: Emilie Kumari MD Primary MD: Emilie Kumari MD Medications: Admitting Medications: 0.9% Normal Saline at [facility] Intra Procedure Medications: Patient received monitored anesthesia [...] Emilie Kumari MD cc: Emilie Kumari MD us Ulysses Deras MD OTHER Fin al Result * ANTI HCV (05/27/2018 2:49 PM CDT) [facility] HEPATITIS C ANTIBODY Non-React magy Non-React magy 05/27/2018 11:34 PM CDT [facility] Comment:Antibodies to HCV no t detected; does not exclude the possibility of exposure to HCV. Blood BLOOD SPECIMEN / Unknown Venipuncture / Unknown 05/27/2018 2:49 PM CDT 05/27/2018 2:51 PM CDT us Ty Montez MD SEND OUTS Final Re sult [facility] [address] [place] [address], [place] * ANTI HIV 1/2 (05/27/2018 2:49 PM CDT) [facility] HIV-1/HIV-2 ANTIBODY Non-Reacti ve Non-Reacti ve 05/27/2018 11:20 PM CDT [facility] Comment:HIV-1 p24 and HIV-1/ HIV-2 Ab not detected. Blood BLOOD SPECIMEN / Unknown Venipuncture / Unknown 05/27/2018 2:49 PM CDT 05/27/2018 2:51 PM CDT us Ty Montez MD SEND OUTS Final Re sult [facility] [address] [place] [address], [place] from Last 3 Months or Most Recently Relevant to Health Maintenance Insurance [employer]UE CROSS MEDICARE ADVANTAGE MR MEDICARE PART A HB ONLY Advance Directives * Full Code (Latest Code [...] 3:32 PM 04/13/2012 5:19 PM Care Teams Hedis Review Nurse Relationship Specialty [place] [address] [place] [address] PCP - General Family Practice 03/07/22 Tino Paez MD Neurology 06/24/15 Nicole Garcia NP [address] [facility] [address] [place] [address] Nurse Practitioner - Adult 11/05/23 Mani Mullen MD [address] [place] [address] Consulting Physician Cardiology - Electrophysiology 12/07/23 Eleni Bell MD [address] [facility] [address] [place] [address] Pain Management Pain Medicine - Anesthesiology 06/30/24 Evelia Finney, RN [address] [place] [address] Complex Care Management Registered Nurse 02/20/25
--- OUTSIDE RECORDS SUMMARY | 2025-03-17 19:26 | XMS_ITS | Encounter Summary ---
Author Organization [facility] Address [address] [place] [address] Care Team Providers Care Blood Bank Assistant Name Role Phone Tejal Gonsalves CAT PET COUNSELOR Unavailable + [phone] Eleni Bell Unavailable Tiffany Mae DO Primary Care Provider [phone] Paola Read MD Unavailable [phone] Paola Read MD Unavailable [phone] Erica Awan [facility] Unavailable +- [phone] Erica Awan [facility] Unavailable +- [phone] Encounter Details Date Type Department Care Team (Late st Contact Info) Description 03/18/2024 Georgette Marcus [facility] [address] [address] Erica Awan, [facility] [address] [place] [address] Social History Tobacco Use Types [...] on file 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 Gender Identity Not on file Sexual Orientation Not on file documented as of this encounter Plan of Treatment Upcoming Encounters Date Type Department Care Team (Late st Contact Info) Description 03/24/2025 1:30 PM CDT Virtual Visit [facility] Neurology [address], [address] [place] [address] Paola Read MD [address] [place] [address] documented as of this encounter Visit Diagnoses Not on filedocumented in this encounter Care Teams Blood Bank Assistant Relationship Specialty [place] [address] [place] [address] PCP - General 05/28/23 Tejal Gonsalves APRN PET COUNSELOR [id number] [place] [address] Nurse Practitioner Neurological Surgery 03/27/23 Eleni Bell [address] [place] [address] Internal Medicine 03/27/23 Paola Read MD [address] [place] [address] Physician Neurology 06/13/23 Paola Read MD [address] [place] [address] Assigned Neuroscience Provider 11/30/23 Erica Awan, [facility] [address] [place] [address] Pharmacist Pharmacist 03/18/24 Erica Awan, [facility] [address] [place] [address] Assigned MTM Pharmacist 04/08/24 documented as of this encounter
--- OUTSIDE RECORDS SUMMARY | 2025-03-17 19:26 | XMS_ITS | Encounter Summary ---
Author Organization [facility] Address [address] [place] [address] Care Team Providers Care Hat Braider Name Role Phone Major Tejal Shanta SHELTON HAT BLOCKER Unavailable +- [phone] Eleni Bell Unavailable MajorTejal APRN HAT BLOCKER Unavailable + [phone] Tiffany Mae DO Primary Care Provider [phone] Paola Read MD Unavailable Paola Read MD Unavailable [phone] Jose Hemphill MD Unavailable [phone] Jose Hemphill MD Unavailable [phone] Paola Read MD Unavailable [phone] Paola Read MD Unavailable [phone] Erica Awan [facility] Unavailable + [phone] Erica Awan [facility] Unavailable + [phone] Encounter Details Date Type Department Care Team (Late st Contact Info) Description 06/05/2023 Georgette Marcus [facility] [address] [address] Hannah Best Social History Tobacco Use Types Packs/Day Years Used Date Smoking Tobacco: Every Day Smokeless Tobacco: Never Alcohol Use Standard Drinks/Week Comments No 0 (1 standard drink = 0.6 oz pur e alcohol) PHQ-2 Answer Date Recorded PHQ-2 Score 1 06/04/2023 Sex and Gender Information Value Date Recorded Sex Assigned at Not on file 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 Gender Identity Not on file Sexual Orientation [...] Description 03/24/2025 1:30 PM CDT Virtual Visit [facility] Neurology [address], [address] [place] [phone] Paola Read MD [address] [place], [place] [address] documented as of this encounter Visit Diagnoses Not on filedocumented in this encounter Care Teams Hat Braider Relationship Specialty [place] [address] [place] [address] PCP - General 05/28/23 Tejal Gonsalves APRN HAT BLOCKER [address] [place] [address] Nurse Practitioner Neurological Surgery 03/27/23 Eleni Bell [address] [place] [address] Internal Medicine 03/27/23 Tejal Gonsalves APRN HAT BLOCKER [address] [place] [address] Assigned Neuroscience Provider 04/07/23 06/08/23 Paola Read MD [address] [place] [address] Physician Neurology 06/13/23 Paola Read MD [address] [place] [address] Assigned Neuroscience Provider 06/09/23 07/13/23 Jose Hemphill MD [address] [place] [address] Assigned Neuroscience Provider 07/14/23 08/24/23 Jose Hemphill MD [address] [place] [address] Assigned Neuroscience Provider 09/08/23 11/29/23 Paola Read MD [address] [place] [address] Assigned Neuroscience Provider 08/25/23 09/07/23 Paola Read MD [address] [place] [address] Assigned Neuroscience Provider 11/30/23 Erica Awan [facility] [address] [place] [address] Pharmacist Pharmacist 03/18/24 Erica Awan [facility] [address] [place] [address] Assigned MTM Pharmacist 04/08/24 documented as of this encounter
--- OUTSIDE RECORDS SUMMARY | 2025-03-17 19:26 | XMS_ITS | Clinical Summary ---
Author Organization [facility] Address [address] [place] [address] Care Team Providers Care Boil Off Machine Operator Cloth Name Role Phone Elsewhere, Pcp Primary Care Provider Unavailabl e Source Comments Patient records contain information from all sites at [facility]. For routine questions regarding patient records, call [phone] during business hours, M-F 8:00 AM - 5:00 PM Central Time. Record requests for emergency care only can be directed to [phone] at any time.[facility] Allergies Active Allergy Reactions Criticality Noted Date [...] placed 09/14/2009. 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 Immunizations Immunization Administration Dates Next Due Influenza Split 09/17/2016 PPSV23 03/30/2016 Tdap 10/30/2012 Family History Medical History Relation Name Comments Prostate cancer Brother Riger [place] Dementia Mother Gogo [place] Osteoporosis Mother Gogo [place] Breast cancer Sister Malia You Ovarian cancer Sister Malia You Relation Name Status Comments Brother Riger [place] Mother Gogo [place] Sister Malia You Social History Tobacco Use Types Packs/Day Years Used Date Smoking Tobacco: Every Day Cigarettes 0.5 47.5 Started: 09/17/1977 Smokeless Tobacco: Never Tobacco Cessation:Ready to Q uit: Not Asked; Counseling Given: Not Answered Alcohol Use Standard Drinks/Week Comments No 0 (1 standard drink = 0.6 oz pur e alcohol) Hunger Vital Sign Answer Date Recorded Within [...] things needed for daily living? No 06/08/2023 Housing Stability Answer Date Recorded What is your living situation today? I have a [facility] place to live 06/08/2023 Sex and Gender Information Value Date Recorded Sex Assigned at Male 08/15/2018 7:50 AM CLINICAL SUPPORT SPECIALIST Legal Sex Male 1:19 AM CLINICAL SUPPORT SPECIALIST Gender Identity Male 08/15/2018 7:50 AM CLINICAL SUPPORT SPECIALIST Sexual Orientation Straight 08/15/2018 7: 50 AM CLINICAL SUPPORT SPECIALIST Last Filed Vital Signs Vital Sign Reading [...] Substance Monitoring (PHQ-9) 02/21/2019 Controlled Substance Monitoring (UDS) 02/21/2019 Opioid Risk Tool (ORT) 02/21/2019 PEG assessment for Opioid therapy 02/21/2019 Opioid Use Disorder (OUD) Screening 02/22/2020 RSV vaccine - (32-36 weeks) or 60+ years (1 - Risk 60-74 years 1-dose series) 2020 COVID-19 Vaccine (7 - 2023- season) 2024 08/03/2023, 06/20/2022, 01/19/2022, Additional history exists Depression Screening (Annual PHQ-2) 09/17/2024 Colonoscopy 12/30/2024 12/31/2019, 11/10/2011 Colorectal Cancer Surveillance 12/30/2024 Influenza Vaccine (#1) 2025 , 06/20/2022, 05/25/2021, Additional history exists Fasting Glucose for Diabetes Screening 02/18/2027 02/19/2024, 01/30/2024, 11/03/2022, Additional history exists Lipid (Cholesterol) Screening 01/30/2029 01/31/2024, 01/26/2023, 01/19/2022, Additional history exists DTaP,Tdap,and Td Vaccines (3 - Td or Tdap) 11/13/2032 11/13/2022, 10/30/2012 Hepatitis B Screening Discontinued 11/17/2011 Zoster Vaccines Completed 02/21/2019, 04/2019, 11/13/2018 Pneumococcal vaccine (50+ years) Completed 01/19/2022, 03/30/2016 IPV Vaccines Aged Out No longer eligi ble based on patient's age to complete this topic Medical Devices Implanted Type Area Oil Burner Servicer And Installer Device Identifier Shelf Expiration Date Model / Serial / Lot Kit Lead Comp Spaced 45cm 3874-45 - [place] [id number] Implanted:Qty: 1 on 01/15/2013 Electrode Other/Legacy - See Implant Description Medtronic Description:Device Manufactu rer - Medtronic USA Inc. Body Location - ?. Not Applicable. Device Status Text - [id number]. Lead-Medtronic Octad 60cm 3778-60 - [place] [id number] Implanted:Qty: 1 on 02/19/2013 Electrode Right: Other/Legacy - See Implant Description Medtronic Description:Device Manufactu rer - Medtronic EZMove Inc. Body Location - Right. Device Status Text - [id number]. Conversions - Default Historical Implant Device - [place] [id number] Implanted:01/2017 (Quantity not on file) Electrode Description:Device Status Te xt - [id number]. Conversions - Default Historical Implant Device - [place] [id number] Implanted:01/2017 (Quantity not on file) Electrode Description:Device Status Te xt - [id number]. neuro stimulator. Medtronic [place] Bi-Wing Injex 80749 - [place] [id number] Implanted:Qty: 1 on 02/19/2013 Spinal Cord Stimulator Other/Legacy - See Implant Description Medtronic Description:Device Manufactu rer - Medtronic USA Inc. Body Location - ?. Not Applicable. Device Status Text - [id number]. Medtronic-Gene rator Restore Ultra - [place] [id number] Implanted:Qty: 1 on 02/19/2013 Spinal Cord Stimulator Other/Legacy - See Implant Description Medtronic Description:Device Manufactu rer - Medtronic USA Inc. Body Location - ?. Not Applicable. Device Status Text - [id number]. Conversions - Default Historical Implant Device Implanted:01/2017 (Quantity not on file) Stent Other Description:Device Status Te xt - StentOthr. cerebral. Conversions - Default Historical Implant Device Implanted:01/2017 (Quantity not on file) Stimulator Other Description:Device Status Te xt - Neurostim. Stent Pipeline Embolization Device [place] - [place] [id number] Implanted:Qty: 4 on 09/14/2009 Vascular Stent Other/Legacy - See Implant Description Description:Device Manufactu [facility]. Device Status Text - [id number]. Explanted Type Area Oil Burner Servicer And Installer Device Identifier Shelf Expiration Date Model / Serial / Lot Lead-Medtronic [id number] - [place] [id number] Implanted:Qty: 1 on 02/19/2013 Explanted:Qty: 1 on 07/14/2024 at [facility] Electrode Other/Legacy - See Implant Description Medtronic Description:Device Manufactu rer - Medtronic USA Inc. Body Location - ?. Not Applicable. Device Status Text - [id number]. Lead-Medtronic Octad 60cm 3778-60 - [place] [id number] Implanted:Qty: 1 on 02/19/2013 Explanted:Qty: 1 on 07/14/2024 at [facility] [place] Electrode Right: Other/Legacy - See Implant Description Medtronic Description:Device Manufactu rer - Medtronic USA Inc. Body Location - Right. Device Status Text - [id number]. Pocket Sizer Medtronic 3550-69 - [place] [id number] Implanted:Qty: 1 on 02/19/2013 Explanted:Qty: 1 on 07/14/2024 at [facility] [place] Stimulator Other Medtronic Description:Device Manufactu rer - Medtronic USA Inc. Device Status Text - [id number]. Procedures Procedure Name Priority Date/Time Associated Diagnosis Comments BASIC METABOLIC PANEL, S/P Routine 01/30/2024 12:05 PM CDT Abnormal Level Of Hormones In Specimens From Other Organs Systems And Tissues LIPID PANEL, S Routine 10/20/2016 11:16 AM CLINICAL SUPPORT SPECIALIST HEPATITIS B SURFACE ANTIGEN Routine 11/17/2011 9:20 AM CLINICAL SUPPORT SPECIALIST from Last 3 Months or Most Recently Relevant to Health Maintenance Results * Basic Metabolic Panel (01/30/2024 12:05 PM [...] M.S. LAB BLOOD ADD-ON Fin al Result [facility] [address] [place] [address], [facility] [address] [place] [address] * Lipid Panel (10/20/2016 11:16 AM CLINICAL SUPPORT SPECIALIST) Cholesterol, HDL, S 47 >=40 MG/DL [facility] Calculated LDL 114 SeeComment MG/DL [facility] Comment: REFERENCE VALUE Desirable: <100 Above Desirable: 100-129 Borderline high: 130-159 High: 160-189 Very high: > or =190 Cholesterol, Non-HDL, Calculated 134 SeeComment MG/DL [facility] Comment: REFERENCE VALUE Desirable: <130 Above Desirable: 130-159 Borderline high: 160-189 High: 190-219 Very high: > or =220 Cholesterol, Total 181 SeeComment MG/DL [facility] Comment: REFERENCE VALUE Desirable: < 200 Borderline high: 200 - 239 High: > or = 240 Triglycerides 102 SeeComment MG/DL [facility] Comment: REFERENCE VALUE Normal: <150 Borderline high: 150-199 High: 200-499 Very high: > or =500 10/20/2016 11:1 6 AM CLINICAL SUPPORT SPECIALIST 10/20/2016 11:16 AM CLINICAL SUPPORT SPECIALIST us Tiara Huerta M.D. LAB BLOOD ADD-ON Final Resul t Performing Organization Address [facility]/ZIP Co de Phone Number [address] * Hepatitis B Surface Antigen (11/17/2011 9:20 AM CLINICAL SUPPORT SPECIALIST) HBs Antigen, S Negative Negative [facility] 11/17/2011 9:20 AM CLINICAL SUPPORT SPECIALIST 11/17/2011 9:20 AM CLINICAL SUPPORT SPECIALIST Jose Chand M.D. LAB MICROBIOLOGY - BLOOD O RDERABLES Final Result Performing Organization Address [facility] de Phone Number [address] from Last 3 Months or Most Recently Relevant to Health Maintenance Insurance [facility] Care Teams Boil Off Machine Operator Cloth Relationship Specialty Start Date End Date Elsewhere, Pcp PCP - General Internal Medicine 06/03/23
--- OUTSIDE RECORDS SUMMARY | 2025-03-17 19:26 | XMS_ITS | Clinical Summary ---
Author Organization [facility] Address [address] [place] [address] Care Team Providers Care Supervisor Beet End Name Role Phone Tejal Gonsalves CAT CLAIMS ADJUSTER SUPERVISOR Unavailable [phone] Ray Debary Unavailable Tiffany Mae DO Primary Care Provider [phone] Paola Read MD Unavailable [phone] Paola Read MD Unavailable [phone] Erica Awan [facility] Unavailable [phone] Erica Awan [facility] Unavailable [phone] Allergies Active Allergy Reactions Criticality Noted Date [...] Active fluticasone (FLONASE) 50 MCG/ACT nasal spray [place] 1 spray in nostril daily Active HYDROmorphone (DILAUDID) 4 MG tablet Take one-half tablet (2 mg) by mouth every 6 hours if needed for pain. Max 2 tabs/day. Use dates: 10/18/2022- 11/16/2022 10/24/19 23 Active naloxone (NARCAN) 4 MG/0.1ML nasal spray [place] 4 mg in nostril 11/13/19 23 Active [...] headache. 18 tablet 3 06/27/20 24 Active rimegepant (NURTEC) 75 MG ODT tabletIndications :Migraine without aura and without status migrainosus, not intractable Place 1 tablet (75 mg) under the tongue every 48 hours. 16 tablet 3 11/05/19 25 Active memantine (NAMENDA) 5 MG tabletIndications :Migraine without aura and without status migrainosus, not intractable Take 2 tablets (10 mg) by mouth at bedtime. 180 tablet 01/27/20 25 Active Encounters Date Type Department Care Team Description 01/25/2025 Refill [facility]rology [facility] [address] [address] Paola Read MD Medication Refill 12/24/2024 Telephone [facility] Neurosurgery Clinic [address] [place] [address] Jose Hemphill MD Medication Question (clopidogrel (PLAVIX) 75 MG tablet) 12/24/2024 Travel from Last 3 Months Social History Tobacco Use Types Packs/Day Years Used Date Smoking Tobacco: Every Day Smokeless Tobacco: Never Tobacco Cessation:Ready to Q uit: Not Asked; Counseling Given: Not Answered Alcohol Use Standard Drinks/Week Comments No 0 (1 standard drink = 0.6 oz pur e alcohol) PHQ-2 Answer Date Recorded PHQ-2 Score 0 08/29/2024 Adolescent Education Answer Date Record ed Getting School Help Needed Not on file 06/13 Sex and Gender Information Value Date Recorded Sex Assigned at Not on file Legal Sex Male 3:26 AM HOME INSURANCE AGENT Gender Identity Not on file Sexual Orientation Not on file Last Filed Vital Signs Vital Sign Reading Time Taken Comments Blood Pressure 102/55 11/16/2023 11:34 AM HOME INSURANCE AGENT Pulse 59 11/16/2023 11:34 AM HOME INSURANCE AGENT Temperature 36.6 C (97.9 F) 05/23/2023 5:48 PM CDT Respiratory Rate 16 07/03/2023 2:29 PM CDT Oxygen Saturation 98% 09/03/2023 3:52 PM HOME INSURANCE AGENT Inhaled Oxygen Concentration - - Weight 76.7 kg (169 lb) 08/29/2024 1:29 PM HOME INSURANCE AGENT Height 186.9 cm (6' 1.58) 08/29/2024 1:29 PM CS T Body Mass Index 21.94 08/29/2024 1:29 PM HOME INSURANCE AGENT Plan of Treatment Upcoming Encounters Date Type Department Care Team (Late st Contact Info) Description 03/24/2025 1:30 PM CDT Virtual Visit [facility] Neurology Clinics - [address], [address] [place] [address] Paola Read MD [address] [place] [address] Health Maintenance Due Date Last Done Comments ADVANCE CARE PLANNING 1960 ANNUAL REVIEW OF HM ORDERS 1960 CT COLONOGRAPHY 1960 FIT 1960 FLEX SIG 1960 LIPID 1960 NICOTINE/TOBACCO CESSATION COUNSELING Q 1 YR 1960 sDNA (Cologuard) 1960 RSV VACCINE (1 - Risk 60-74 years 1-dose series) 2020 DIABETES SCREENING 06/21/2021 06/21/2018 PHQ-2 (once per calendar year) 2024 08/29/2024, 06/27/2024, 02/25/2024, Additional history exists MEDICARE ANNUAL WELLNESS VISIT 01/30/2025 01/31/2024, 01/26/2023, 01/19/2022, Additional history exists LUNG CANCER SCREENING 08/22/2025 08/22/2024 , 08/22/2024, 08/21/2023, Additional history exists COLONOSCOPY 12/30/2029 12/31/2019 COLORECTAL CANCER SCREENING 12/30/2029 DTAP/TDAP/TD VACCINE (3 - Td or Tdap) 11/13/2032 11/13/2022, 10/30/2012 HEPATITIS C SCREENING Completed 05/27/2018 HIV SCREENING Completed 05/27/2018 ZOSTER VACCINE Completed 02/21/2019, 04/2019, 11/13/2018 PNEUMOCOCCAL VACCINE 50+ YEARS Completed 01/19/2022, 03/30/2016 COVID-19 VACCINE Completed 07/15/2024, , 06/20/2022, Additional history exists INFLUENZA VACCINE Completed 07/15/2024, , 06/20/2022, Additional history exists HPV VACCINE Aged Out No longer eligi ble based on patient's age to complete this topic MENINGITIS VACCINE Aged Out No longer eligible based on patient's age to [...] 06/21/2018 5:36 PM CDT Adonis Garcia MD [facility] [place] POCT Final Result POINT OF CARE TEST, HANDHELD METER from Last 3 Months or Most Recently Relevant to Health Maintenance Insurance [facility] MEDICARE ADVANTAGE * Guarantor: Inocencio Andrew Account Type Relation to Patient Date of Phone Billing Address Medication Therapy Self 1960 [address] [place] [address] BCBS MEDICARE ADVANTAGE BCBS MEDICARE ADVANTAGE Care Teams Supervisor Beet End Relationship Specialty [place] [address] [place] [address] PCP - General 05/28/23 Tejal Gonsalves APRN CLAIMS ADJUSTER SUPERVISOR [address] [facility] [address] Nurse Practitioner Neurological Surgery 03/27/23 Eleni Bell [address] [place] [address] Internal Medicine 03/27/23 Paola Read MD [address] [place] [address] Physician Neurology 06/13/23 Paola Read MD [address] [place] [address] Assigned Neuroscience Provider 11/30/23 Erica Awan [facility] [address] [place] [address] Pharmacist Pharmacist 03/18/24 Erica Awan [facility] [address] [place] [address] Assigned MTM Pharmacist 04/08/24
--- OUTSIDE RECORDS SUMMARY | 2025-03-17 19:26 | XMS_ITS | Encounter Summary ---
Author Organization [facility] Address [address] [place] [address] Care Team Providers Care Fence Gate Assembler Name Role Phone Tejal Gonsalves CAT HEALTH AND FITNESS INSTRUCTOR Unavailable + [phone] TejinderEleni grace Unavailable Tiffany Mae DO Primary Care Provider [phone] Paola Read MD Unavailable [phone] Paola Read MD Unavailable [phone] Erica Awan [facility] Unavailable +- [phone] Erica Awan [facility] Unavailable +- [phone] Encounter Details Date Type Department Care Team (Late st Contact Info) Description 11/05/[address] [facility] [address] [facility] Neurology Clinic [address] [address] Paola Read MD [address] [place] [id number] Social History Tobacco Use Types Packs/Day Years [...] on file Legal Sex Male 3:26 AM SKETCH LINER Gender Identity Not on file Sexual Orientation Not on file documented as of this encounter Plan of Treatment Upcoming Encounters Date Type Department Care Team (Late st Contact Info) Description 03/24/2025 1:30 [address] CDT Virtual [address] [facility] Neurology [address], [address] [place] [address] Paola Read MD [address] [place] [address] documented as of this encounter Visit Diagnoses Not on filedocumented in this encounter Care Teams Fence Gate Assembler Relationship Specialty [place] [address] [place] [address] PCP - General 05/28/23 Tejal Gonsalves APRN HEALTH AND FITNESS INSTRUCTOR [address] [place] [address] [address] Nurse Practitioner Neurological Surgery 03/27/23 Eleni Bell [address] [place] [address] Internal Medicine 03/27/23 Paola Read MD [address] [place] [address] Physician Neurology 06/13/23 Paola Read MD [address] [place] [address] Assigned Neuroscience Provider 11/30/23 Erica Awan, [facility] [address] [place] [address] Pharmacist Pharmacist 7/2/24 Erica Awan, [facility] [address] [place] [address] Assigned MTM Pharmacist 04/08/24 documented as of this encounter
--- OUTSIDE RECORDS SUMMARY | 2025-03-17 19:27 | XMS_ITS | Encounter Summary ---
Author Organization [facility] Address [address] [place] [address] Care Team Providers Care Director Ship Name Role Phone Tejal Gonsalves CAT PHARMACY HELPER Unavailable + [phone] TejinderEleni grace Unavailable Tiffany Mae DO Primary Care Provider [phone] Paola Read MD Unavailable [phone] Paola Read MD Unavailable [phone] Erica Awan [facility] Unavailable +- [phone] Erica Awan [facility] Unavailable +- [phone] Encounter Details Date Type Department Care Team (Late st Contact Info) Description 08/21/2024 [facility] Neurology Clinic [address] [address] Paola Read MD [address] [place] [id number] Social History Tobacco Use Types Packs/Day Years [...] on file Legal Sex Male 3:26 AM POLICE LIEUTENANT PATROL Gender Identity Not on file Sexual Orientation Not on file documented as of this encounter Plan of Treatment Upcoming Encounters Date Type Department Care Team (Late st Contact Info) Description 03/24/2025 1:30 PM CDT Virtual Visit [facility] Neurology [address], [address] [place] [address] Paola Read MD [address] [place] [address] documented as of this encounter Visit Diagnoses Not on filedocumented in this encounter Care Teams Director Ship Relationship Specialty [place] [address] [place] [address] PCP - General 05/28/23 Tejal Gonsalves APRN PHARMACY HELPER [address] [place] [address] [address] Nurse Practitioner Neurological Surgery 03/27/23 Eleni Bell [address] [place] [address] Internal Medicine 03/27/23 Paola Read MD [address] [place] [address] Physician Neurology 06/13/23 Paola Read MD [address] [place] [address] Assigned Neuroscience Provider 11/30/23 Ercia Awan, [facility] [address] [place] [address] Pharmacist Pharmacist 7/2/24 Erica Awan, [facility] [address] [place] [address] Assigned MTM Pharmacist 04/08/24 documented as of this encounter
--- OUTSIDE RECORDS SUMMARY | 2025-03-17 19:27 | XMS_ITS | Encounter Summary ---
Author Organization [facility] Address [address] [place] [address] Care Team Providers Care Luggage Repairer Name Role Phone Tejal Gonsalves CAT CLOTH COLORER Unavailable +- [phone] Unavailable Tiffany Mae DO Primary Care Provider [phone] Paola Read MD Unavailable [phone] Paola Read MD Unavailable [phone] Erica Awan [facility] Unavailable +- [phone] Erica Awan [facility] Unavailable +- [phone] Encounter Details Date Type Department Care Team (Late st Contact Info) Description 12/26/2023 [facility] Primary Care Clinic [address] [place] [address] Alanis Narayanan Social History Tobacco [...] on file Legal Sex Male 3:26 AM ANALYTICS ASSOCIATE Gender Identity Not on file Sexual Orientation Not on file documented as of this encounter Plan of Treatment Upcoming Encounters Date Type Department Care Team (Late st Contact Info) Description 03/24/2025 1:[address] Virtual [address] [facility] Neurology [facility] - [address], [address] [place] [phone] Paola Read MD [address] [place] [address] documented as of this encounter Visit Diagnoses Not on filedocumented in this encounter Care Teams Luggage Repairer Relationship Specialty [place] [address] [place] [address] PCP - General 05/28/23 Tejal Gonsalves APRN CLOTH COLORER [address] [facility] [address] [place], [place] [address] Nurse Practitioner Neurological Surgery 03/27/23 Eleni Bell [address] [place] [address] Internal Medicine 03/27/23 Paola Read MD [address] [place] [address] Physician Neurology 06/13/23 Paola Read MD [address] [place] [address] Assigned Neuroscience Provider 11/30/23 Erica Awan [facility] [address] [place] [address] Pharmacist Pharmacist 03/18/24 Erica Awan [facility] [address] [place] [address] Assigned MTM Pharmacist 04/08/24 documented as of this encounter
--- OUTSIDE RECORDS SUMMARY | 2025-03-17 19:27 | XMS_ITS | Encounter Summary ---
Author Organization [facility] Address [address] [place] [address] Care Team Providers Care Critical Care Nurse Name Role Phone Tejal Gonsalves CAT WOOD ENGRAVER Unavailable + [phone] TjeinderEleni grace Unavailable Tiffany Mae DO Primary Care Provider [phone] Paola Read MD Unavailable [phone] Paola Read MD Unavailable [phone] Erica Awan [facility] Unavailable +- [phone] Erica Awan [facility] Unavailable +- [phone] Encounter Details Date Type Department Care Team (Late st Contact Info) Description 07/28/2024 [facility] Neurology Clinic [address] [address] Paola Read MD [address] [place] [id number] Social History Tobacco Use Types Packs/Day Years [...] on file Legal Sex Male 3:26 AM CASEY SAW OPERATOR Gender Identity Not on file Sexual Orientation Not on file documented as of this encounter Miscellaneous Notes * Telephone Encounter - Paola Read MD - 07/29/2024 8:19 AM CASEY SAW OPERATOR I have placed the orders Y SAW OPERATOR documented in this encounter Plan of Treatment Upcoming Encounters Date Type Department Care Team (Late st Contact Info) Description 03/24/2025 1:30 PM CDT Virtual Visit [facility] Neurology Clinics - [address], [address] [place] [address] Paola Read MD [address] [place], [place] [address] documented as of this encounter Visit Diagnoses Not on filedocumented in this encounter Care Teams Critical Care Nurse Relationship Specialty [place] [address] [place] [address] PCP - General 05/28/23 Tejal Gonsalves APRN CNP [address] [facility] [address] Nurse Practitioner Neurological Surgery 03/27/23 Eleni Bell [address] [place] [address] Internal Medicine 03/27/23 Paola Read MD [address] [place] [address] Physician Neurology 06/13/23 Paola Read MD [address] [place] [address] Assigned Neuroscience Provider 11/30/23 Erica Awan [facility] [address] [place] [address] Pharmacist Pharmacist 03/18/24 Erica Awan [facility] [address] [place] [address] Assigned MTM Pharmacist 04/08/24 documented as of this encounter
--- OUTSIDE RECORDS SUMMARY | 2025-03-17 19:27 | XMS_ITS | Encounter Summary ---
Author Organization [facility] Address [address] [place] [address] Care Team Providers Care Food Tester Name Role Phone Tejal Gonsalves [facility] [employer] Unavailable + [phone] Ray Eleni Unavailable Tiffany Mae DO Primary Care Provider [phone] Paola Read MD Unavailable Jose Hemphill MD Unavailable [phone] Paola Read MD Unavailable [phone] [address] A[address] [facility] Unavailable Erica Awan [facility] Unavailable + [phone] Encounter Details Date Type Department Care Team (Late st Contact Info) Description 10/17/2023 [facility] [address] [place] [address] Paola Read MD [address] [place] [address] Social History Tobacco Use Types Packs/Day [...] on file Legal Sex Male 3:26 AM LINEMAN Gender Identity Not on file Sexual Orientation Not on file documented as of this encounter Plan of Treatment Upcoming Encounters Date Type Department Care Team (Late st Contact Info) Description 03/24/2025 1:30 PM CDT Virtual Visit [facility] Neurology [address], [address] [place] [phone] Paola Read MD [address] [place] [address] documented as of this encounter Visit Diagnoses Not on filedocumented in this encounter Care Teams Food Tester Relationship Specialty [place] [address] [place] [address] PCP - General 05/28/23 Tejal Gonsalves APRN [employer] [address] [place] [address] [id number] [place], [place] [id number] Nurse Practitioner Neurological Surgery 03/27/23 Eleni Bell [address] [place] [address] Internal Medicine 03/27/23 Paola Read MD [address] [place] [address] Physician Neurology 06/13/23 Jose Hemphill MD [address] [place] [address] Assigned Neuroscience Provider 09/08/23 11/29/23 Paola Read MD [address] [place] [address] Assigned Neuroscience Provider 11/30/[address] [facility] [address] [place] [address] Pharmacist Pharmacist 03/18/[address] [facility] [address] [place] [address] Assigned MTM Pharmacist 04/08/24 documented as of this encounter
--- NOTE | 2025-03-17 20:07 | ED.WEAKNESS ---
HPI - Weakness General Time Seen by Provider: 20:09 Date Seen: 03/17/25 Chief complaint: Weakness Stated complaint: Uncontrollable shaking Time Seen by Provider: 03/17/25 20:06 Source: patient, RN notes reviewed and old records reviewed Mode of arrival: ambulatory Limitations: no limitations History of Present Illness HPI Narrative: 64-year-old male who presents today with full body shaking and decreased appetite today. Abrupt onset earlier. Denies cough, shortness of breath, chest pain. Does note some back pain from the neck down when this occurred. No abdominal pain, no nausea, vomiting, or diarrhea. Feels better now. Related Data Home Medications ?Medication ?Instructions ?Recorded ?Confirmed atorvastatin 40 mg tablet 40 mg PO QPM 05/25/23 08/13/24 diazepam 5 mg tablet 2.5 mg PO 05/25/23 pregabalin 150 mg capsule 150 mg PO BID 05/25/23 08/13/24 tizanidine 4 mg tablet 4 mg PO Q8H PRN 05/25/23 08/13/24 zolpidem 10 mg tablet 10 mg PO QPM PRN 05/25/23 08/13/24 apixaban 5 mg tablet (Eliquis) 5 mg PO BID 06/05/23 08/13/24 fentanyl 50 mcg/hr transdermal 1 patch topical DAILY 06/05/23 08/13/24 patch Previous Rx's ?Medication ?Instructions ?Recorded methylprednisolone 4 mg tablets in See Rx Instructions PO .COMPLEX 08/13/24 a dose pack (Medrol (Lew)) #21 ea Allergies Allergy/AdvReac Type Severity Reaction Status Date / Time oxcarbazepine (From Allergy Rash Verified 03/17/25 19:39 Trileptal) topiramate (From Topamax) Allergy Rash Verified 03/17/25 19:39 amoxicillin (From Augmentin) AdvReac Nausea Verified 03/17/25 19:39 clavulanic acid (From AdvReac Nausea Verified 03/17/25 19:39 Augmentin) sulfamethoxazole (From AdvReac Diarrhea Verified 03/17/25 19:39 Bactrim) trimethoprim (From Bactrim) AdvReac Diarrhea Verified 03/17/25 19:39 PFSH PFSH Social History Smoking Status: Current every day smoker What tobacco products do you use: cigarettes Smoking packs per day: 0.5 Smoking cigarettes per day: 10.0 Do you use any of these nicotine containing products: None Second hand tobacco smoke exposure: No How often do you have a drink containing alcohol: never How often do you have six or more drinks on one occasion: Never AUDIT-C Alcohol total score: 0 Non-prescribed substance use: denies use service: No Exam Narrative: Exam Narrative: General: Well-developed and well-nourished, no acute distress Head: Atraumatic and normocephalic Eyes: Pupils are equal reactive, extraocular motions intact, conjunctiva clear ENT: External nose and ears are normal, posterior pharynx without erythema or exudate Neck: No midline cervical tenderness, full spontaneous range of motion the neck, trachea midline, no adenopathy Heart: Regular rate and rhythm no murmurs or thrills Lungs: Clear to auscultation bilaterally without wheezes or crackles Abdomen: Soft, nontender, nondistended with active bowel sounds Musculoskeletal: No tenderness, deformity, or edema Neurologic: Awake, alert, and oriented x3, no gross focal neurologic deficits, cranial nerves intact as tested Psych: Mood and affect are appropriate Skin: No rashes Const: Vital Signs, click to edit/add: Vital Signs - 24 hr 03/17/25 19:36 03/17/25 21:00 03/17/25 21:02 Temperature 99.7 F H Pulse Rate 82 Pulse Rate [Right Pulse Oximeter] 72 Respiratory Rate 16 18 Blood Pressure 115/67 Blood Pressure [Ri ght Upper Arm] 153/67 H Pulse Oximetry 98 98 97 Oxygen Delivery Me thod Room Air 03/17/25 21:03 03/17/25 21:03 03/17/25 21:43 Temperature 101.1 F H Pulse Rate 88 74 Pulse Rate [Right Pulse Oximeter] Respiratory Rate 5 L 16 Blood Pressure 111/54 L Blood Pressure [Ri ght Upper Arm] Pulse Oximetry 97 98 Oxygen Delivery Me thod 03/17/25 22:01 03/17/25 22:40 Temperature 98.4 F 98.4 F Pulse Rate 72 Pulse Rate [Right Pulse Oximeter] Respiratory Rate 18 Blood Pressure 105/56 L Blood Pressure [Ri ght Upper Arm] Pulse Oximetry 97 Oxygen Delivery Me thod Course Course ED Course: Reviewed most recent emergency department visit from July 2024 which is allergic reaction which initially was of the right lip, this was in conjunction with increasing memantine and recently finished an antibiotic. Patient seen examined, presents today with generalized full body shaking abrupt onset along with some back and neck pain. At the time of my initial exam patient no longer has the shaking, no focal findings on exam but I did ask nursing to recheck patient's temperature now is febrile at 101.1. He had a recent neck injection. Concern for bacteremia, also consider pneumonia, urinary tract infection, liver abscess. Labs are ordered along with CT scan chest, abdomen, pelvis to evaluate for source of possible sepsis. EKG independently interpreted by me performed at 7:54 p.m. demonstrates normal sinus rhythm rate 87, QTC 411, VA 152, no acute ischemic changes, normal axis. No prior for comparison. Reevaluation(s) Time of Reevaluation #1: 21:04 Reevaluation #1: Labs independently interpreted by me with normal white blood cell count, normal basic panel, normal hepatic panel, normal urinalysis. Time of Reevaluation #2: 21:16 Reevaluation #2: Labs independently interpreted by me with normal lactate, normal procalcitonin. Overall labs are quite reassuring so far, no evidence for sepsis. Time of Reevaluation #3: 21:23 Reevaluation #3: Labs independently interpreted by me with normal CRP. Additional Reevaluation(s): 22:41 CT scan of the chest, abdomen, pelvis inability interpreted by me without acute infectious inflammatory findings. Radiology interpretation with possible mild enlargement of the appendix but no surrounding stranding, patient has no abdominal pain and no tenderness on exam, clinically acute appendicitis is unlikely. We had long discussion about findings today. No definite etiology for patient's fever is found. Will add tick panel and Lyme as patient did travel to [facility] [place] constantly but did not have any tick bites that he noticed. We discussed uncertainty source of fever, this could be a viral process or bacteremia, as patient is feeling well with reassuring labs and vital is stable, still be discharged with outpatient follow-up. I did consider possible spinal epidural abscess or diskitis as patient had a recent injection, however he has no pain with neck movement, no tenderness of the cervical or thoracic spine to percussion, inflammatory markers are negative. Vital Signs Vital signs: Initial Vital Signs Temperature 99.7 F H 03/17/25 19:36 Temperature Source Temporal Artery Scan 03/17/25 19:36 Pulse Rate 72 03/17/25 19:36 Pulse Rhythm Regular 03/17/25 19:36 Pulse Strength 3+ Normal 03/17/25 19:36 Respiratory Rate 16 03/17/25 19:36 Blood Pressure 153/67 H 03/17/25 19:36 Blood Pressure Mean 95 03/17/25 19:36 Blood Pressure Position Sitting 03/17/25 19:36 Pulse Oximetry 98 03/17/25 19:36 Oxygen Delivery Method Room Air 03/17/25 19:36 Vital Signs Temperature 99.7 F H 03/17/25 19:36 Pulse Rate 72 03/17/25 19:36 Respiratory Rate 16 03/17/25 19:36 Blood Pressure 153/67 H 03/17/25 19:36 Pulse Oximetry 98 03/17/25 19:36 Oxygen Delivery Method Room Air 03/17/25 19:36 Temperature 98.4 F 03/17/25 22:40 Pulse Rate 72 03/17/25 22:01 Respiratory Rate 18 03/17/25 22:01 Blood Pressure 105/56 L 03/17/25 22:01 Pulse Oximetry 97 03/17/25 22:01 Oxygen Delivery Method Room Air 03/17/25 19:36 Medications Administered Medications: Generic Name Dose Route Start Last Admin Trade Name Estela PRN Reason Stop Dose Admin Acetaminophen 1,000 mg 03/17/25 20:55 03/17/25 21:03 Acetaminophen 500 Mg Tablet PO 03/17/25 20:56 1,000 mg ONCE ONE Administration Acetaminophen 1,000 mg 03/17/25 21:02 03/17/25 21:04 Acetaminophen 500 Mg Tablet PO 03/17/25 21:03 Not Given ONCE ONE MDM - Weakness Lab Data Labs: Lab Results 03/17/25 03/17/25 Range/Units 20:21 20:22 WBC 6.78 (4.50-11.00) K/uL RBC 4.78 (4.30-5.90) m/uL Hgb 13.7 (13.5-17.5) gm/dL Hct 40.3 (37.0-53.0) % MCV 84 (80-100) fL MCH 29 (26-34) pg MCHC 34 (32-36) gm/dL RDW Coeff of Syd 14.7 (11.5-15.5) % Plt Count 180 (140-440) K/uL Neut % (Auto) 70.8 (42.0-72.0) % Lymph % (Auto) 17.4 L (20-44) % [place] % (Auto) 11.5 H (0.0-11.0) % Eos % (Auto) 0.3 (0.0-7.0) % Baso % (Auto) 0.0 (0.0-3.0) % Neut # (Auto) 4.80 (1.7-7.0) K/uL Lymph # (Auto) 1.20 (0.90-2.90) K/uL [place] # (Auto) 0.80 (0.00-0.90) K/UL Eos # (Auto) 0.02 (0.00-0.50) K/uL Baso # (Auto) 0.00 (0.00-0.30) K/uL Abs Immat Gran (auto) 0.00 (0.00-0.30) K/uL Imm/Tot Granulo (auto) 0.0 % Sodium 139 (135-149) mmol/L Potassium 3.6 (3.6-5.1) mmol/L Chloride 105 (96-114) mmol/L Carbon Dioxide 28 (20-32) mmol/L Anion Gap 6 L (7-15) mEq/L BUN 10 (7-30) mg/dL Creatinine 0.8 (0.5-1.5) mg/dL Estimated Creat Clear 79.00 Estimated GFR 99 ml/min Glucose 107 (60-115) mg/dL Lactate 1.3 (0.5-1.9) mmol/L Calcium 8.9 (8.4-10.6) mg/dL Magnesium 1.8 (1.5-2.6) mg/dL Total Bilirubin 0.7 (0.1-1.5) mg/dL Direct Bilirubin 0.0 (0.0-0.5) mg/dL AST 33 (12-35) U/L ALT 25 (4-50) U/L Alkaline Phosphatase 81 (40-150) U/L C-Reactive Protein 0.6 (0.5-1.0) mg/dL Total Protein 6.6 (6.0-8.3) g/dL Albumin 3.9 (3.3-5.0) g/dL Procalcitonin 0.11 (<0.50) ng/mL Urine Color Yellow (Yellow) Urine Appearance Clear (Clear) Urine pH 6.0 (5.0-8.5) Ur Specific [place] 1.015 (1.000-1.030) Urine Protein Negative (Negative) Urine Glucose (UA) Negative (Negative) Urine Ketones Negative (Negative) Urine Blood Trace-intact A (Negative) Urine Nitrite Negative (Negative) Urine Bilirubin Negative (Negative) Urine Urobilinogen 1.0 (0.2-1.0) Ur Leukocyte Esterase Negative (Negative) Urine RBC 0-2 (0-2) Urine WBC 0-2 (0-5) Ur Squamous Epith Cells Few (None-Few) Urine Bacteria None (None) SARS-CoV-2 (PCR) Negative SARS-CoV-2 (Negative) Influenza Type A (PCR) Negative PCR FLU A (Negative) Influenza Type B (PCR) Negative PCR FLU B (Negative) RSV (PCR) Negative PCR RSV (Negative) Discharge Plan Discharge Clinical Impression: Fever, Rigor Patient Disposition: Home, Self-Care Condition: Stable Instructions: Fever in Adults (ED) Additional Instructions: Take Tylenol and ibuprofen as needed for shaking or fever Follow-up with your primary care doctor in 3-5 days Return to the emergency department if you have further concerns Activity Level: No Restrictions Discharge Diet: Regular Prescriptions: No Action atorvastatin 40 mg tablet 40 mg PO QPM tizanidine 4 mg tablet 4 mg PO Q8H PRN zolpidem 10 mg tablet 10 mg PO QPM PRN diazepam 5 mg tablet 2.5 mg PO pregabalin 150 mg capsule 150 mg PO BID Eliquis 5 mg tablet 5 mg PO BID fentanyl 50 mcg/hr patch 72 hour 1 patch topical DAILY methylprednisolone [Medrol (Lew)] 4 mg tablets,dose pack See Rx Instructions .ROUTE .COMPLEX Qty: 21 0RF Rx Instructions: orally per package directions Follow Up/Referrals: Tiffany Mae DO [Primary Care Provider, Family Practice] Stand Alone Forms: [facility] Info Instructions
--- NOTE | 2025-03-17 20:20 | CRLHL7_ITS ---
For Patients: As a result of the Century Cures Act, medical imaging exams and procedure reports are released immediately into your electronic medical record. You may view this report before your referring provider. If you have questions, please contact your health care provider. INDICATION: Shaking rigors, favor, concern for sepsis TECHNIQUE: CT chest, abdomen, and pelvis with i.v. contrast, scanned during the venous phase. Coronal and sagittal reformats were obtained. CONTRAST: 81 mL Isovue 370 COMPARISON: None FINDINGS: CHEST: Cardiovascular: The heart has an unremarkable appearance and size. The pulmonary arteries are unremarkable in appearance. No sign of aneurysm or dissection in the thoracic aorta. Mediastinum: No mass or adenopathy seen. Lung: Mild centrilobular emphysema is present in the upper lobes bilaterally. There is a 3 mm calcified granuloma present in the medial right apex. Pleura and pericardium: No sign of pleural effusion seen. No significant pericardial effusion is present. Chest wall and axilla: No mass or adenopathy seen. ABDOMEN/PELVIS: Liver: Unremarkable. Spleen: Unremarkable. Pancreas: Unremarkable. Gallbladder: Unremarkable. Kidney: Bilateral renal cysts are present, measuring up to 1.5 cm. Adrenal: Unremarkable. Bowel: The stomach, small bowel, and colon are unremarkable. Mild enlargement of the appendix is noted measuring 9 mm, with no secondary inflammatory changes seen. Vascular: Moderate atherosclerotic calcifications of the abdominal aorta are present. Lymph: Unremarkable. Peritoneum: Unremarkable. No pneumoperitoneum is seen. No significant ascites is noted. Pelvis: Unremarkable. Soft tissue: Unremarkable. Bone: Unremarkable for age. IMPRESSION: 1. Mild enlargement of the appendix is noted measuring 9 mm, with no secondary inflammatory changes seen. Clinical correlation and followup recommended to distinguish between a normal ectatic variant or early stage appendicitis. Dictated by Sumanth Banerjee MD @ 03/17/2025 10:09:35 PM Please note that all CT scans at this facility use dose modulation, iterative reconstruction, and/or weight-based dosing when appropriate to reduce radiation dose to as low as reasonably achievable. Dictated by: Sumanth Banerjee MD @ 03/17/2025 22:09:48 (Electronically Signed)
[2025-03-17 20:34] LABS: Lactate* 1.3 mmol/L (0.5-1.9)
[2025-03-17 20:38] LABS: Hematocrit 40.3 % (37.0-53.0); Hemoglobin* 13.7 gm/dL (13.5-17.5); Immature Granulocytes Abs Auto 0.00 K/uL (0.00-0.30); Immature Granulocytes Pct Auto 0.0 %; Mean Corpuscular HGB Conc 34 gm/dL (32-36); Mean Corpuscular Hemoglobin 29 pg (26-34); Mean Corpuscular Volume 84 fL (80-100); RDW Coefficient of Variation % 14.7 % (11.5-15.5); Red Blood Count 4.78 m/uL (4.30-5.90); White Blood Count* 6.78 K/uL (4.50-11.00)
[2025-03-17 20:41] LABS: Lymphocytes Absolute Auto 1.20 K/uL (0.90-2.90); Slide Review Reflex No
[2025-03-17 20:51] LABS: Albumin* 3.9 g/dL (3.3-5.0); Chloride* 105 mmol/L (96-114)
[2025-03-17 20:52] LABS: Potassium* 3.6 mmol/L (3.6-5.1); Sodium* 139 mmol/L (135-149)
[2025-03-17 20:54] LABS: Alanine Aminotransferase* 25 U/L (4-50); Alkaline Phosphatase* 81 U/L (40-150); Anion Gap 6 mEq/L (7-15); Aspartate Amino Transferase* 33 U/L (12-35); Bilirubin Direct* 0.0 mg/dL (0.0-0.5); Bilirubin Total* 0.7 mg/dL (0.1-1.5); Blood Urea Nitrogen* 10 mg/dL (7-30); Carbon Dioxide* 28 mmol/L (20-32); Creatinine* 0.8 mg/dL (0.5-1.5); Est. Creatinine Clearance* 79.00; Estimated Glomerular Filt Rate 99 ml/min; Total Protein* 6.6 g/dL (6.0-8.3)
[2025-03-17 20:55] LABS: Appearance Urine Clear (Clear)
[2025-03-17 20:55] LABS: Calcium* 8.9 mg/dL (8.4-10.6); Glucose* 107 mg/dL (60-115)
[2025-03-17] MEDS: ACETAMINOPHEN 500 MG TABLET 1000 MG PO (21:03)
[2025-03-17 21:11] LABS: Procalcitonin* 0.11 ng/mL (<0.50)
[2025-03-17 21:17] LABS: PCR FLU A Negative PCR FLU A (Negative); PCR FLU B Negative PCR FLU B (Negative); PCR RSV Negative PCR RSV (Negative); SARS PCR* Negative SARS-CoV-2 (Negative)
[2025-03-19 14:26] LABS: Lyme ELISA Reflex 0.40 IV (<=0.90)
[2025-03-20 21:40] LABS: Anaplasma phagocyt PCR Not Detected
== END 2025-03-17 22:52 | disposition home or self-care (01) ==
PROVIDERS: Emergency Provider Family Medicine; PCP Family Medicine
DX: R50.9 Fever, unspecified (principal)
CPT/HCPCS: 36415; 71260; 74177; 80048; 80076; 81001; 83605; 83735; 84145; 85025; 86140; 86618; 87040; 87468; 87469; 87484; 87631; 87798; 93005; 94761; 99284; 99285; A9270; Q9967